=== PATIENT | female | born 1945 | race Caucasian/White ===

== ENCOUNTER 2017-06-15 09:00 | Outpatient (RCR) | payer MEDICARE, BC, SELFPAY ==
--- NOTE | 2017-05-09 14:36 | HMH.PTOPEV ---
Rehab Outpatient Evaluation Rehab OP Evaluation Start: 05/09/17 14:01 Freq: Status: Active Protocol: Document 05/09/17 14:01 DENNYSSTEPHANIE (Rec: 05/09/17 14:36 JONATHAN [id number]) Electronically Signed By Carroll Mike PT 05/09/17 14:01 Outpatient Therapy Subjective History Subjective History This is the initial Physical Therapy evaluation for Charley Massey. Pt is a 72 y/o female referred to PT for c/o BLE pain and balance issues. Pt reports she began noticing pain in toes from toenails and shoes. Pt reports this altered her gait to suach an extent it began causing pain in claf muscles and eventually knees and hips. 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 Chief Complaint Pain Weakness Other Symptom Type Ache Throb Sharp Numbness Symptoms Relieved By Rest/Positioning Symptoms Aggravated By Physical Activity Walking Prior Functional Limitations None Current Functional Limitations Housework Standing Sitting Recreation Activity Walking Balance Symptom Description Intermittent Level of pain today (0-10) 0 Pain scale - at its best (0-10) 0 Pain scale - at its worst (0-10) 7 Balance Eval Chief Complaint vertigo No Did you feel dizzy, unsteady or faint? Yes: unsteady Prior Functional Limitations Prior Functional [place] Level Independent Current Functional Limitations Comment independent w/ increased time necessary for ADL's Hx of Falls Hx Falls Yes Number in last 6 months 3 Gait/Posture Asssessment General Gait Observation Wide Based Gait Shuffling Step Assistive Devices None / NA Level of Transfer Assist Standby Assistance Ankle/Foot Observation in Gait Swing Decreased Foot Clearance Body Alignment Posture Rigid LE ROM Ankle/Foot ROM Limitations Soft Tissue Tightness Muscle Weakness Pain
== END 2017-06-15 09:01 | disposition home or self-care (01) ==
LOC: PT 09:00
PROVIDERS: Family Provider Internal Medicine Adolescent Medicine; PCP Internal Medicine Adolescent Medicine; Visit Provider Internal Medicine Adolescent Medicine
DX: M19.90 Unspecified osteoarthritis, unspecified site (principal); M79.1 Myalgia
CPT/HCPCS: 97110; 97112

== ENCOUNTER → 2017-10-10 12:49 | Outpatient (CLI) | payer MEDICARE, BC, SELFPAY ==
--- NOTE | 2017-10-10 12:57 | US_ITS ---
US transvaginal HISTORY: ITS.REASON: PELVIC PAIN ORDERING PHYSICIAN: James Stack MD PATIENT AGE: 72 years Comparison: US transvaginal COMPARISON: Transvaginal ultrasound for 2016 HISTORY: Pelvic pain, 20 years postmenopausal TECHNIQUE: Endovaginal ultrasound scanning FINDINGS: The uterus is normal in size and shows normal echogenicity. Again noted is a small area of slightly decreased activity spherical in shape fundus of the uterus measuring 1.3 x 1.2 cm likely a small fibroid. The endometrial echo appears normal there is a nabothian cyst in the cervix measuring 0.7 cm. Both ovaries are imaged both appearing normal in size and echogenicity. There is no cul-de-sac fluid. IMPRESSION: Grossly normal-appearing uterus with stable small fibroid in the uterine fundus, normal ovaries bilaterally
== END ==
PROVIDERS: Family Provider Internal Medicine Adolescent Medicine; PCP Internal Medicine Adolescent Medicine; Visit Provider Internal Medicine Adolescent Medicine
DX: R10.2 Pelvic and perineal pain (principal)
CPT/HCPCS: 76830

== ENCOUNTER → 2018-01-22 15:20 | Outpatient (CLI) | payer MEDICARE, BC, SELFPAY ==
--- NOTE | 2018-01-22 15:41 | XR_ITS ---
XR chest 2V HISTORY: ITS.REASON: COUGH ORDERING PHYSICIAN: James Stack MD PATIENT AGE: 72 years COMPARISON: PA and lateral chest 06/10/2015 FINDINGS: The cardiomediastinal silhouette and pulmonary vascularity are within normal limits. The lungs are clear without infiltrates, suspicious nodules, or pleural effusions. There is minimal post inflammatory scarring at the left base. No acute bony abnormalities. IMPRESSION: Negative chest, no acute finding
--- NOTE | 2018-01-22 15:42 | XR_ITS ---
EXAM: XR cervical spine 5V HISTORY: Generalized neck pain ITS.REASON: CERVICALGIA ORDERING PHYSICIAN: James Stack MD PATIENT AGE: 72 years COMPARISON: None FINDINGS: Normal alignment. No fracture or dislocation. No lytic or blastic change. No significant degenerative change. The disc spaces are preserved except for minor disc space narrowing at C5-6 level. Oblique films show normal neural foramina bilaterally. The prevertebral soft tissues are normal and the odontoid is normal.. IMPRESSION: Very minor degenerative disc disease C5-6 otherwise normal study
== END ==
PROVIDERS: PCP Internal Medicine Adolescent Medicine; Visit Provider Internal Medicine Adolescent Medicine
DX: Z12.31 Encounter for screening mammogram for malignant neoplasm of breast (principal); R05 Cough; M54.2 Cervicalgia
CPT/HCPCS: 71046; 72050

== ENCOUNTER → 2018-02-12 16:43 | Outpatient (CLI) | payer MEDICARE, BC, SELFPAY ==
--- NOTE | 2018-02-12 16:45 | MM_ITS ---
MM Dig screening mamm BI w/CAD ORDERING PHYSICIAN : James Stack MD PATIENT AGE: 72 years GENDER: Female COMPARISON: INDICATION: ITS.REASON: SCREENING no hormones. No new complaints. Previous excisional benign biopsy right breast Family history. Maternal aunt with breast cancer TECHNIQUE: Standard CC and MLO images were obtained. R2 CAD reviewed. FINDINGS: Low-density breast with minimal residual fibroglandular elements and generalized fatty replacement. No new areas of concern. Scattered benign spherical calcifications. Likely reflecting small oil cyst s no new findings of significant concern in either breast. Bilateral follow-up in one year adequate. . Stable minimal residual fibroglandular elements pattern bilaterally. IMPRESSION: Stable bilateral mammogram... With no significant new findings. Bilateral follow-up in one year recommended. BI-RADS Category: 2 Benign Finding(s) RECOMMENDED FOLLOW-UP: 1YR 1 YEAR FOLLOW-UP (A letter has been sent to the patient regarding results of the study.)
== END ==
PROVIDERS: PCP Internal Medicine Adolescent Medicine; Visit Provider Internal Medicine Adolescent Medicine
DX: Z12.31 Encounter for screening mammogram for malignant neoplasm of breast (principal)
CPT/HCPCS: 77067

== ENCOUNTER → 2018-06-12 08:33 | Outpatient (CLI) | payer MEDICARE, BC, SELFPAY ==
[2018-06-12 09:25] LABS: Basophils % 0.6 % (0.1-2.0); Eosinophils # 0.5 K/mm3 (0.0-0.4); Eosinophils % 9.2 % (0.1-12.0); Hematocrit 48.4 % (37.0-47.0); Hemoglobin 15.4 g/dL (12.2-16.2); Lymphocytes # 1.5 K/mm3 (0.7-4.5); Mean Corpuscular HGB Conc 31.8 g/dL (31.8-35.4); Mean Corpuscular Hemoglobin 28.6 pg (27.0-31.2); Monocytes # 0.4 K/mm3 (0.1-1.0); Neutrophils # 3.2 K/mm3 (1.8-7.8); Neutrophils % 57.1 % (37.0-80.0); Platelet Count 292 K/mm3 (142-424); Red Blood Count 5.38 M/mm3 (4.20-5.40); White Blood Count 5.7 K/mm3 (4.8-10.8)
[2018-06-12 09:34] LABS: Hemoglobin A1C 6.6 % (0.0-7.0)
[2018-06-12 10:24] LABS: Alanine Aminotransferase 26 U/L (12-78); Albumin Level 3.4 gm/dL (3.4-5.0); Alkaline Phosphatase 139 U/L (46-116); Anion Gap 9.7 mEq/L (5-15); Aspartate Amino Transferase 19 U/L (15-37); Bilirubin,Total 0.7 mg/dL (0.2-1.0); Blood Urea Nitrogen 15 mg/dL (7-18); Calcium 9.5 mg/dL (8.5-10.1); Carbon Dioxide 32 mmol/L (21.0-32.0); Chloride 107 mmol/L (98-107); Chol/HDL Ratio 2.6 (1-3.5); Cholesterol 170 mg/dL (140-200); Creatinine,Serum 0.75 mg/dL (0.55-1.02); Estimated Glomerular Filt Rate 76 ml/min (>60); GFR (African American) 92 ML/MIN (>60); Globulin 3.5 gm/dl (1.3-3.2); Glucose 166 mg/dL (74-106); HDL Cholesterol 65 mg/dL (29-89); LDL Cholesterol 93 mg/dL (0-130); Potassium 4.7 mmoL/L (3.5-5.1); Sodium 144 mmol/L (136-145); Thyroid Stimulating Hormone 3.25 uIU/ml (0.358-3.740); Total Protein,Serum 6.9 gm/dL (6.4-8.2); Triglycerides 59 mg/dL (30-200); VLDL Cholesterol 12 mg/dL (0-40)
[2018-06-13 07:55] LABS: Vitamin D 25 Hydroxy 12.8 ng/mL (30.0-100.0)
[2018-06-13 08:46] LABS: Vitamin B12 206 pg/mL (232-1245)
== END ==
PROVIDERS: Visit Provider Internal Medicine Adolescent Medicine
DX: E11.9 Type 2 diabetes mellitus without complications (principal); Z79.84 Long term (current) use of oral hypoglycemic drugs
CPT/HCPCS: 36415; 80053; 80061; 82607; 82652; 83036; 84443; 85025

== ENCOUNTER → 2018-07-17 17:15 | Outpatient (CLI) | payer MEDICARE, BC, SELFPAY ==
--- NOTE | 2018-07-17 17:36 | XR_ITS ---
XR shoulder LT min 2V HISTORY: ITS.REASON: ACUTE PAIN OF LEFT SHOULDER ORDERING PHYSICIAN: Naman Sandoval MD PATIENT AGE: 73 years Comparison: None FINDINGS: No fracture or dislocation. No lytic or blastic change. There is normal mineralization. There are mild osteoarthritic changes with bony spurring at the acromioclavicular joint. Spurring is noted along both superior and inferior aspect of the acromium with subacromial stenosis which may lead to the rotator cuff pathology/symptoms. IMPRESSION: Acromioclavicular arthropathy with subacromial stenosis
--- NOTE | 2018-07-17 17:36 | XR_ITS ---
XR wrist LT min 3V HISTORY ITS.REASON: LEFT WRIST PAIN ORDERING PHYSICIAN: Naman Sandoval MD PATIENT AGE: 73 years Comparison: None FINDINGS: No fracture or dislocation. No lytic or blastic change. There is normal mineralization.. The joint spaces are well-preserved. No significant degenerative/arthritic changes. No erosive changes evident.. IMPRESSION: Negative wrist
== END ==
PROVIDERS: PCP Internal Medicine Adolescent Medicine; Visit Provider Internal Medicine Adolescent Medicine
DX: M25.532 Pain in left wrist (principal); M25.512 Pain in left shoulder
CPT/HCPCS: 73030; 73110

== ENCOUNTER → 2018-08-24 13:22 | Outpatient (CLI) | payer MEDICARE, BC, SELFPAY ==
--- NOTE | 2018-08-24 13:35 | XR_ITS ---
XR chest 2V HISTORY: ITS.REASON: COUGH,HOARSENESS ORDERING PHYSICIAN: James Stack MD PATIENT AGE: 73 years COMPARISON: 01/22/2018 FINDINGS: The cardiomediastinal silhouette and pulmonary vascularity are within normal limits. The lungs are clear without infiltrates, suspicious nodules, or pleural effusions. No acute bony abnormalities. IMPRESSION: Negative chest, no acute finding
--- NOTE | 2018-08-24 13:35 | XR_ITS ---
XR soft tissue neck CLINICAL INDICATION: ITS.REASON: COUGH,HOARSENESS ORDERING PHYSICIAN: James Stack MD PATIENT AGE: 73 years Comparison: None FINDINGS: The epiglottis has an unremarkable appearance. No prevertebral mass or air-fluid level. There is some increased soft tissue density at the glottic region with narrowing of the upper trachea suggesting croup. IMPRESSION: The findings are compatible with croup
== END ==
PROVIDERS: PCP Internal Medicine Adolescent Medicine; Visit Provider Internal Medicine Adolescent Medicine
DX: R05 Cough (principal); R49.0 Dysphonia
CPT/HCPCS: 70360; 71046

== ENCOUNTER → 2018-08-31 12:03 | Outpatient (CLI) | payer MEDICARE, BC, SELFPAY ==
[2018-08-31 14:55] LABS: Hemoglobin A1C 6.4 % (0.0-7.0)
== END ==
PROVIDERS: Visit Provider Internal Medicine Adolescent Medicine
DX: E11.9 Type 2 diabetes mellitus without complications (principal); Z79.4 Long term (current) use of insulin
CPT/HCPCS: 36415; 83036

== ENCOUNTER → 2018-09-01 10:18 | Outpatient (CLI) | payer MEDICARE, BC, SELFPAY | PROVIDERS: Visit Provider Internal Medicine Adolescent Medicine | DX: R05 Cough (principal) | CPT/HCPCS: 87070; 87205 ==

== ENCOUNTER → 2018-10-08 09:50 | Outpatient (CLI) | payer MEDICARE, BC, SELFPAY ==
--- NOTE | 2018-10-08 09:53 | XR_ITS ---
DEXA SCAN.-BONE DENSITY STUDY HIPS AND LUMBAR SPINE Height loss HISTORY: Postmenopausal female 73-year-old female takes vitamin D. Loss of height butNo history of fractures. TECHNIQUE: DEXA scan hip and lumbar spine The most complete data summary and color graphic presentation of the today's ( and any prior ) DEXA findings are available in PACS. Definition and treatment guidelines included. COMPARISON: None listed LUMBAR SPINE:. L2 vertebral body demonstrates the lowest T score -0.7 with BMD1.116 g/cm sq Overall mean lumbar L1-L4 T score 0.2 with BMD1.207 g/cm sq . HIPS: Femoral neck density is best predictor of hip fracture risk . Both right and left femoral neck demonstrate T score of -1.1 indicating mild osteopenia. Right BMD 0.885; Left femoral neck BMD 0.889. G/cm sq . This mild osteopenia at both femoral necks reflects Minimal increased risk for fracture (2-3 times risk) all region included with today's Hip Mean T score is - -0.1 with BMD 0.998 g/cm sq .. IMPRESSION 1. LUMBAR SPINE: .Normal bone density lumbar spine-with overall lumbar T score = 0.2 . Normal bone density each sampled vertebral body 2. HIPS: Overall hip T score = -0.1 reflects overall normal bone density Lower density at femoral necks indicating mild osteopenia T score -1.1. Minimal increased risk for fracture. WHO criteria for post-menopausal, Women: Normal: T-score at or above -1 SD Osteopenia: T-score between -1 and -2.5 SD Osteoporosis: T-score at or below -2.5 SD
--- NOTE | 2018-10-08 09:54 | FL_ITS ---
FL barium swallow modified: 10/08/2018 9:54 AM CLINICAL HISTORY: Globus sensation, chronic cough, dysphasia ORDERING PHYSICIAN: James Stack MD PATIENT AGE: 73 years Comparison: None TECHNIQUE: Patient administered varying consistencies of barium contrast, while viewed in lateral position under real-time fluoroscopy with cine recording. FLUOROSCOPY TIME: 2 minutes and 42 seconds The study was performed in conjunction with speech pathologist. Please see that report & recommendations. FINDINGS: Patient was given varying consistencies of barium. No aspiration or penetration evident. IMPRESSION: Unremarkable modified barium swallow Please see speech pathologist report and recommendations.
--- NOTE | 2018-10-08 13:40 | HMH.SLMBS2 ---
Speech & Language Evaluation Speech/Language Mod Barium Swallow Start: 10/08/18 13:26 Freq: once Status: Complete Protocol: Document 10/08/18 13:26 MORENO (Rec: 10/08/18 13:40 MORENO [id number]) [facility] Recommendations Diet Dietary Recommendations Regular,Thin Liquids Referrals/Other Recommended Referrals ENT Consult Other Recommendations Patient advised to follow up with PCP and ENT to assess persistent feeling of food stuck in throat and cough. Mucas was observed during study possibly triggering cough, but no food was observed getting stuck in structures of her anatomy. Mod Barium Swallow Impressions Summary and Impressions Oral Phase Impression No Impairment (WFL) Oral Phase Summary No impairment in oral phase was observed with any consistency presented. Pharyngeal Phase Impression No Impairment (WFL) Pharyngeal Phase Summary No pharyngeal phase impairment was observed. Mucas was observed that did not move when patient coughed. Patient consistently coughed a barky cough following presentation of all consistencies. Speech/Language MBS Assessment/Goals/Plan Assessment Date of Evaluation: 10/08/18 Evaluation Type Initial Certification Assessment/Problems Patient presents with a persistent cough and feeling of food stuck in throat'. Does Patient Qualify for Service No Qualify/Failure Comment Patient presents with functional swallow and structure and function appear to be within functional limits . Therapy is not indicated at this time. Recommendations PHYSICIAN CERTIFICATION: The specified therapy services are required, authorized, and reviewed every 30 days. Diet Recommendations Normal Liquid Type Recommendations Normal/Thin SL Swallow Guidelines Standard Aspiration Prec. Plan Pt/Guardian verbally ack understanding Yes of dx/prognosis/goals Pt/Guardian verbally ack understanding Yes of/consent to tx prog G -code Required Yes G-CODES ST Current Status [id number] ST Current Status Modifier CI-At least 1% but less than 20% impaired, limited or
== END ==
PROVIDERS: PCP Internal Medicine Adolescent Medicine; Visit Provider Internal Medicine Adolescent Medicine
DX: Z78.0 Asymptomatic menopausal state (principal); Z13.820 Encounter for screening for osteoporosis; R05 Cough; R09.89 Other specified symptoms and signs involving the circulatory and respiratory systems
CPT/HCPCS: 70371; 77080; 92611

== ENCOUNTER → 2018-11-30 10:54 | Outpatient (CLI) | payer MEDICARE, BC, SELFPAY ==
[2018-11-30 11:59] LABS: Basophils % 0.5 % (0.1-2.0); Eosinophils # 0.2 K/mm3 (0.0-0.4); Eosinophils % 2.5 % (0.1-12.0); Hematocrit 44.1 % (37.0-47.0); Hemoglobin 13.9 g/dL (12.2-16.2); Lymphocytes # 1.9 K/mm3 (0.7-4.5); Lymphocytes % 25.2 % (10-50); Mean Corpuscular HGB Conc 31.6 g/dL (31.8-35.4); Mean Corpuscular Hemoglobin 28.6 pg (27.0-31.2); Mean Corpuscular Volume 90.8 fl (81-99); Mean Platelet Volume 7.8 fl (7.4-10.4); Monocytes # 0.5 K/mm3 (0.1-1.0); Monocytes % 7.2 % (1.7-9.3); Neutrophils # 4.8 K/mm3 (1.8-7.8); Neutrophils % 64.7 % (37.0-80.0); Platelet Count 329 K/mm3 (142-424); Red Blood Count 4.86 M/mm3 (4.20-5.40); Red Cell Distribution Width 12.7 % (11.5-17.5); White Blood Count 7.5 K/mm3 (4.8-10.8)
[2018-11-30 13:39] LABS: Alanine Aminotransferase 20 U/L (12-78); Albumin Level 3.4 gm/dL (3.4-5.0); Alkaline Phosphatase 127 U/L (46-116); Anion Gap 8.1 mEq/L (5-15); Aspartate Amino Transferase 14 U/L (15-37); Bilirubin,Total 0.4 mg/dL (0.2-1.0); Blood Urea Nitrogen 14 mg/dL (7-18); Calcium 9.2 mg/dL (8.5-10.1); Carbon Dioxide 33 mmol/L (21.0-32.0); Chloride 107 mmol/L (98-107); Chol/HDL Ratio 2.3 (1-3.5); Cholesterol 155 mg/dL (140-200); Creatinine,Serum 0.75 mg/dL (0.55-1.02); Estimated Glomerular Filt Rate 76 ml/min (>60); GFR (African American) 92 ML/MIN (>60); Globulin 3.4 gm/dl (1.3-3.2); Glucose 117 mg/dL (74-106); HDL Cholesterol 67 mg/dL (29-89); LDL Cholesterol 78 mg/dL (0-130); Potassium 4.1 mmoL/L (3.5-5.1); Sodium 144 mmol/L (136-145); Total Protein,Serum 6.8 gm/dL (6.4-8.2); Triglycerides 52 mg/dL (30-200); VLDL Cholesterol 10 mg/dL (0-40)
[2018-12-01 11:35] LABS: Hemoglobin A1C 6.9 % (0.0-7.0)
== END ==
PROVIDERS: Visit Provider Internal Medicine Adolescent Medicine
DX: E78.5 Hyperlipidemia, unspecified (principal); E11.9 Type 2 diabetes mellitus without complications; Z79.84 Long term (current) use of oral hypoglycemic drugs; M17.11 Unilateral primary osteoarthritis, right knee
CPT/HCPCS: 36415; 80053; 80061; 83036; 85025

== ENCOUNTER → 2018-12-04 12:44 | Outpatient (CLI) | payer MEDICARE, BC, SELFPAY ==
--- NOTE | 2018-12-04 12:48 | CA_ITS ---
APPROVED REPORT EXAM: Comprehensive 2D, Doppler, and color-flow Echocardiogram Medical Coding Specialist: Radha Zaldivar CRT Ht: 5 ft 10 in Wt: 270lbs BSA: 2.37 BP: 124/56 mmHg Indications: COPD, Shortness of Breath, Diabetes, Hypertension/HDD, GERD, Mineer's disease 2D Dimensions IVSd 2.00 cm LVEF (Visual) 61.40 % PWd 0.90 cm LVDd 4.00 cm LVDs 2.70 cm LVOT 1.90 cm (M/F) 1.5-2.5 M-Mode Dimensions LA Diam 4.00 cm (1.9-4.0) Ao Diam 2.90 cm (2.0-3.7) AV Cusp 1.80 cm (1.5-2.6) LV Diastology E/A Ratio 0.60 MED E' 5.65 (< 7 cm/sec) E'/MED E' Ratio 11.80 (>14) LAT E' 4.48 (<10 cm/sec) E/LAT E' Ratio 14.90 (>14) Aortic Valve AoV Peak Lorenzo. 162.00 (50-130 cm/s) AO Peak GR. 10.00 mmHg Mitral Valve MV E Max Lorenzo. 66.60 (40-130 cm/s) MV A Velocity 107.00 (40-130 cm/s) E/A Ratio 0.60 Pulmonary Valve VT End VMAX 102.00 cm/s PA Accel Time 137.00 (>120 msec) Tricuspid Valve TR P. Velocity 238.00 cm/s RAP Estimate 10.00 mmHg RVSP 33.00 mmHg Left Ventricle Left atrium is mildly enlarged, left ventricle is normal size, mild concentric left ventricular hypertrophy, visually estimated ejection fraction of 55% with no regional wall motion abnormality. Grade 1 diastolic dysfunction seen without tissue Doppler evidence of raise left atrial pressure. Right Ventricle Right atrium and right ventricle is mildly enlarged with normal contractility. Aortic Valve Aortic valve is minimally thickened and calcified, there is no aortic stenosis aortic insufficiency. Mitral Valve Mitral valve is grossly normal, there is mild mitral regurgitation. Tricuspid Valve Tricuspid valve is grossly normal, there is mild tricuspid regurgitation, calculated right ventricular systolic pressure is 37 mmHg consistent with mildly elevated right ventricular systolic pressure. Pulmonic Valve Pulmonic valve is poorly visualized. Great Vessels Aortic root is normal size. Pericardium No significant pericardial effusion noted. Conclusion 1. Biatrial enlargement, normal left ventricular size, preserved left ventricular systolic function, visually estimated ejection fraction 55% with no regional wall motion abnormality, grade 1 diastolic dysfunction seen without tissue Doppler evidence of raise left atrial pressure. 2. Mildly enlarged right ventricle with normal contractility. 3. Mild mitral and tricuspid regurgitation, calculated right ventricular systolic pressure is 37 mmHg consistent with mildly elevated right ventricular systolic pressure. 4. No significant pericardial effusion noted. Electronically signed by : Juice Modi, 12/07/2018 10:47:50
== END ==
PROVIDERS: PCP Internal Medicine Adolescent Medicine; Visit Provider Internal Medicine Adolescent Medicine
DX: R60.9 Edema, unspecified (principal); R06.09 Other forms of dyspnea
CPT/HCPCS: 93306

== ENCOUNTER 2018-12-20 08:30 | Outpatient (RCR) | payer MEDICARE, BC, SELFPAY ==
--- NOTE | 2018-11-07 10:45 | HMH.PTOPEV ---
PT Outpatient Evaluation Rehab PT Outpatient Evaluation Start: 11/07/18 09:21 Freq: Status: Active Protocol: Document 11/07/18 09:21 JONATHAN (Rec: 11/07/18 10:45 JONATHAN [id number]) Electronically Signed By Carroll Mike, PT 11/07/18 09:21 Outpatient Therapy Subjective History Subjective History 73 year old female pt. reports with bilateral knee pain and low back pain. Pt. states she has trouble with sitting and walking. Pt. 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 Pt. is unsure how long symptoms have been occuring but says it has at least been a few years. Chief Complaint Pain,Gives out/Unstable, Weakness Symptom Type Throb,Sharp Symptoms Relieved By Rest/Positioning Symptoms Aggravated By Prone,Supine,Sitting,Standing, Bending/Stooping,Physical Activity,Twisting,Walking, Lifting Prior Functional Limitations None Current Functional Limitations Reaching,Lifting,Housework, Standing,Sitting,Squatting, Recreation Activity,Walking, Stairs,Balance,Bending/ Stooping Symptom Description Constant but Variable Level of pain today (0-10) 5 Pain scale - at its best (0-10) 3 Pain scale - at its worst (0-10) 5 Lumbopelvic Eval Range of Motion Lumbar Spine Active Flexion Range of 60 Motion (degrees) Lumbar Spine Active Extension Range of 10 Motion (degrees) Lumbar Spine ROM Limitations Pain Manual Muscle Test Left Knee Extension Strength Grade 3+ Fair+ Knee Flexion Strength Grade 3+ Fair+ Hip Flexion Strength Grade 3 Fair Hip Abduction Strength Grade 4 Good Hip External Rotation Strength Grade 3 Fair Hip Internal Rotation Strength Grade 3 Fair Hip Extension Strength Grade 4- Good- Right Knee Extension Strength Grade 4- Good- Knee Flexion Strength Grade 4 Good Hip Flexion Strength Grade 3 Fair Hip Abduction Strength Grade 4 Good Hip External Rotation Strength Grade 3+ Fair+ Hip Internal Rotation Strength Grade 3+ Fair+ Hip Extension Strength Grade 4- Good- DTR Rt Patellar 0 Lt Patellar 0 Special Tests Forward Bending Test- Sitting Positive Left,Positive Right Hip/Knee Eval P
== END 2018-12-20 08:35 | disposition home or self-care (01) ==
LOC: PT 08:30
PROVIDERS: PCP Internal Medicine Adolescent Medicine; Visit Provider Nurse Practitioner Family
DX: M25.561 Pain in right knee (principal); M25.562 Pain in left knee; M54.41 Lumbago with sciatica, right side
CPT/HCPCS: 97110; 97163

== ENCOUNTER → 2019-04-03 11:53 | Outpatient (CLI) | payer MEDICARE, BC, SELFPAY ==
[2019-04-03 12:17] LABS: Basophils # 0.1 K/mm3 (0-0.2); Basophils % 0.7 % (0.1-2.0); Eosinophils # 0.3 K/mm3 (0.0-0.4); Eosinophils % 4.1 % (0.1-12.0); Hematocrit 41.7 % (37.0-47.0); Hemoglobin 13.2 g/dL (12.2-16.2); Lymphocytes # 1.9 K/mm3 (0.7-4.5); Lymphocytes % 28.1 % (10-50); Mean Corpuscular HGB Conc 31.7 g/dL (31.8-35.4); Mean Corpuscular Hemoglobin 27.7 pg (27.0-31.2); Mean Corpuscular Volume 87.3 fl (81-99); Mean Platelet Volume 8.5 fl (7.4-10.4); Monocytes # 0.4 K/mm3 (0.1-1.0); Monocytes % 6.3 % (1.7-9.3); Neutrophils # 4.1 K/mm3 (1.8-7.8); Neutrophils % 60.8 % (37.0-80.0); Platelet Count 291 K/mm3 (142-424); Red Blood Count 4.78 M/mm3 (4.20-5.40); Red Cell Distribution Width 13.5 % (11.5-17.5); White Blood Count 6.8 K/mm3 (4.8-10.8)
[2019-04-03 15:34] LABS: Alanine Aminotransferase 25 U/L (12-78); Albumin Level 3.3 gm/dL (3.4-5.0); Albumin/Globulin Ratio 1.1 (1.1-1.8); Alkaline Phosphatase 122 U/L (46-116); Anion Gap 10.1 mEq/L (5-15); Aspartate Amino Transferase 14 U/L (15-37); Bilirubin,Total 0.7 mg/dL (0.2-1.0); Blood Urea Nitrogen 13 mg/dL (7-18); Calcium 8.7 mg/dL (8.5-10.1); Carbon Dioxide 31 mmol/L (21.0-32.0); Chloride 108 mmol/L (98-107); Chol/HDL Ratio 2.7 (1-3.5); Cholesterol 167 mg/dL (140-200); Creatinine,Serum 0.61 mg/dL (0.55-1.02); Estimated Glomerular Filt Rate 96 ml/min (>60); GFR (African American) 116 ML/MIN (>60); Globulin 3.1 gm/dl (1.3-3.2); Glucose 124 mg/dL (74-106); HDL Cholesterol 63 mg/dL (29-89); LDL Cholesterol 89 mg/dL (0-130); Potassium 4.1 mmoL/L (3.5-5.1); Sodium 145 mmol/L (136-145); Total Protein,Serum 6.4 gm/dL (6.4-8.2); Triglycerides 76 mg/dL (30-200); VLDL Cholesterol 15 mg/dL (0-40)
[2019-04-03 17:19] LABS: Hemoglobin A1C 6.4 % (0.0-7.0)
== END ==
PROVIDERS: Visit Provider Internal Medicine Adolescent Medicine
DX: E11.9 Type 2 diabetes mellitus without complications (principal); R60.9 Edema, unspecified
CPT/HCPCS: 36415; 80053; 80061; 83036; 85025

== ENCOUNTER → 2019-04-08 12:33 | Outpatient (CLI) | payer MEDICARE, BC, SELFPAY ==
--- NOTE | 2019-04-08 12:39 | XR_ITS ---
PROCEDURE: XR CHEST 2V CLINICAL HISTORY: COUGH COMPARISON: CXR CHEST(2 VIEWS-NOT PORTABLE) from 06/10/2015 CXR1 CHEST-PORTABLE from 09/24/2015 CXR CHEST(2 VIEWS-NOT PORTABLE) from 10/20/2016 CXR2V XR chest 2V from 01/22/2018 FINDINGS: The cardiomediastinal silhouette and pulmonary vascularity are within normal limits. The lungs are clear without infiltrates, suspicious nodules, or pleural effusions. No acute bony abnormalities. IMPRESSION: No acute findings. Dictated by: Jonathan Jo MD 04/08/2019 13:33 Electronically signed by Jonathan Jo MD in [place] 04/08/2019 13:33
== END ==
PROVIDERS: PCP Internal Medicine Adolescent Medicine; Visit Provider Nurse Practitioner
DX: R05 Cough (principal)
CPT/HCPCS: 71046

== ENCOUNTER → 2019-08-28 14:35 | Outpatient (CLI) | payer MEDICARE, BC, SELFPAY ==
[2019-08-28 16:35] VITALS: BMI 38.2
== END ==
PROVIDERS: PCP Internal Medicine Adolescent Medicine; Visit Provider Internal Medicine Adolescent Medicine
DX: Z71.3 Dietary counseling and surveillance (principal); E11.9 Type 2 diabetes mellitus without complications
CPT/HCPCS: 97802

== ENCOUNTER → 2019-09-18 08:32 | Outpatient (CLI) | payer MEDICARE, BC, SELFPAY ==
--- NOTE | 2019-09-18 08:35 | MM_ITS ---
PROCEDURE: MM DIG SCREENING MAMM BI W/CAD DIGITAL BREAST TOMOSYNTHESIS INCLUDED Patient Age:74Y CLINICAL INDICATION: SCREENING 74-year-old postmenopausal female no hormones Previous surgical excisional biopsy right breast-benign findings. Family history. Paternal aunt breast cancer COMPARISON: [facility] DIGITAL MAMM-SCREEN BILATERAL from 12/03/2010 [facility] DIGITAL MAMM-SCREEN BILATERAL from 04/24/2012 [facility] DIG MAMM-SCREEN ALEKSANDRA from 06/27/2013 [facility] DIG MAMM-SCREEN ALEKSANDRA from 09/09/2014 [facility] DIG MAMM-SCREEN ALEKSANDRA from 12/08/2015 [facility] DIG MAMM-SCREEN ALEKSANDRA W/CAD from 01/20/2017 [facility] MM Dig screening mamm BI w/CAD from 02/12/2018 TECHNIQUE: Very difficult to position patient but had difficulty hearing as well. Standard CC and MLO images were obtained. R2 CAD reviewed. Bilateral digital breast tomosynthesis included. Additional nipple profile CC views both breast, With additional nipple profile right MLO view . FINDINGS: Of minimal residual fibroglandular elements most evident at the retroareolar region. No significant change since prior studies. No dominant or suspicious new mass. No suspicious new calcifications. Scattered benign spherical calcifications bilateral new Suggestion very minor longstanding stable architectural changes superior right breast likely reflect previous biopsy Bilateral follow-up in 1 year adequate. And recommended IMPRESSION: Stable mammogram with no new areas of concern Bilateral follow-up 1 year recommended BI-RAD Category: 2 Benign Finding(s) FOLLOW-UP: 1YR 1 Year Follow-up (A letter has been sent to the patient regarding results of the study.) Dictated by: Dillon Bryant MD 09/18/2019 10:08 Electronically signed by Dillon Bryant MD in [place] 09/18/2019 10:08
== END ==
PROVIDERS: PCP Internal Medicine Adolescent Medicine; Visit Provider Internal Medicine Adolescent Medicine
DX: Z12.31 Encounter for screening mammogram for malignant neoplasm of breast (principal)
CPT/HCPCS: 77063; 77067

== ENCOUNTER → 2019-10-23 11:15 | Outpatient (CLI) | payer MEDICARE, BC, SELFPAY ==
--- NOTE | 2019-10-23 11:20 | XR_ITS ---
PROCEDURE: XR CHEST 2V CLINICAL HISTORY: COUGH,SOB Nonsmoker. Rattling in lungs. COMPARISON: WO CT CHEST W/O CONTRAST from 11/01/2016 CXR2V XR chest 2V from 01/22/2018 XR CHEST 2V from 04/08/2019 XR CHEST PORTABLE from 05/27/2019 FINDINGS: No acute bony abnormalities. There is bony demineralization. The cardiomediastinal silhouette and pulmonary vascularity are within normal limits. The lungs are somewhat hyperinflated probably with COPD. The lungs are seen without infiltrates, suspicious nodules, or pleural effusions. Mildly increased thoracic kyphosis. IMPRESSION: 1. No acute findings. Probably COPD. Dictated by: Gallo Vu 10/23/2019 12:07 Electronically signed by Gallo Vu in [place] 10/23/2019 12:07
== END ==
PROVIDERS: PCP Internal Medicine Adolescent Medicine; Visit Provider Nurse Practitioner
DX: R05 Cough (principal); R06.02 Shortness of breath
CPT/HCPCS: 71046

== ENCOUNTER → 2019-11-09 09:03 | Outpatient (CLI) | payer MEDICARE, BC, SELFPAY ==
[2019-11-09 10:53] LABS: Coronavirus 19 IgG Antibody Negative (Negative); Coronavirus 19 IgM Antibody Negative (Negative)
== END ==
PROVIDERS: Visit Provider Internal Medicine Gastroenterology
DX: Z01.818 Encounter for other preprocedural examination (principal); Z12.11 Encounter for screening for malignant neoplasm of colon
CPT/HCPCS: 36415; 86328

== ENCOUNTER 2019-11-11 10:37 | Day surgery (SDC) | payer MEDICARE, BC, SELFPAY ==
[2019-11-11] VITALS (10 sets, daily range): BP systolic 117–177; BP diastolic 63–88; PULSE 61–79; RESP 10–18; TEMP 36.4–36.7; O2SAT 96–100; BMI 36.9
[2019-11-11 11:41] LABS: POC Glucose,Bedside 96 (70-110)
--- NOTE | 2019-11-11 12:22 | P.PN_ITS ---
[facility] Anesthesia Checklist - Patient Identification Patient Identification: Arm Band, Verbal (Name & ) - Structural Data Admitted From: Home Planned Operative Procedure/s: Colonoscopy Consent for Planned Operative Procedure(s) Verified: Yes Verified Documents: Surgical Consent, History and Physical - NPO Status Verified Time NPO: 00:00 - Additional verifications Fingerstick Blood Glucose: 96 Anesthesia Reactions: No - Airway Assessment C-Spine Mobility Assessed: Yes TMJ Mobility Assessed: Yes Dentition: Good Dentition - Neurological Assessment Level of Consciousness: Awake, Alert, Appropriate, Follows Commands Hx Seizures: No Numbness or tingling in extremities: No - Anesthesia Plan Anesthesia Risk discussed: Yes Anesthesia Plan: Verified ASA Class: III Anesthesia Type: MAC [facility] History I have reviewed the patient's past medical history: Yes Medical History: Reports:: Asthma, Chronic Obstructive Pulmonary Disease (COPD), Diabetes Mellitus Type 2, Gastroesophageal Reflux Disease(GERD), Hyperlipidemia, Hypertension, Kidney Stones Denies:: Cancer, Cerebrovascular Accident, Diabetes Mellitus Type 1, Internal Pacemaker, MRSA, Myocardial Infarction, Renal Disease, Renal Insufficiency, Seizures *Have you ever received a pneumonia vaccine?: Yes *Have you received a flu vaccine this season?: Yes Other Medical History: Reports: Arthritis, Fibromyalgia Comment:: GABRIELLE uses CPAP, Menieres disease, vertigo, DM, GERD, Obesity, fibromyalgia Anesthesia experience/problems:: No prior complications Laterality Cases: Right: Lumpectomy, Bilateral: Tonsillectomy Other Surgeries: Yes: Appendectomy, Colonoscopy, Dilation and Curettage, Other. No: Pacemaker Amputation: No Fractures: No - *Social History Smoking Status: Former smoker Tobacco Type: cigarettes Alcohol Intake: never Substance Use Type: denies use *Occupational Status:: retired Housing: house *Travel in the last 8 weeks: None Family Hx:: Cancer, Coronary Artery Disease, Heart Attack [employer] history: No [employer] history
--- NOTE | 2019-11-11 12:55 | HMH.PROC ---
[facility] Procedure Note Procedure Note:: Colonoscopy Procedure Report: Colonoscopy with cold snare polypectomy Endoscopist: Wagner Marcelino II, MD Referring physician: James Stack M.D. Date of Procedure: November 11, 2019 Equipment: Olympus 180 variable stiffness pediatric colonoscope Sedation: MAC sedation Indication: Mrs. Massey is a 74-year-old female who is here for follow-up screening/surveillance colonoscopy. The patient does have a personal history of colon polyps. She has had 2 prior colonoscopies and her last was 5 years ago at which time polyps were removed. The patient also has a history of irritable bowel syndrome. She does have alternating diarrhea with constipation. She has gassiness and bloating. She does report some lower abdominal discomfort associated with her IBS. She reports no rectal bleeding or weight loss. She may see some occasional spotting of blood from internal hemorrhoids. She believes that her mother had colon cancer at age 74. Procedure: Prior to the procedure, a history and physical exam was performed, and patient's medications and allergies were reviewed. The risks, benefits and alternatives of the sedation and procedure were discussed with the patient. All questions were answered and informed consent was obtained. The patient was brought to the procedure room. Patient identification and proposed procedure were verified by the physician and the nurse. The patient was placed in a left lateral decubitus position and the scope was passed under direct vision. Throughout the procedure, the patient's blood pressure, pulse, and oxygen saturations were monitored continuously. The colonoscopy was accomplished without difficulty. The patient tolerated the procedure well. Findings: On digital rectal examination there was normal rectal tone. There were no external hemorrhoids. The colonoscope was introduced through the anal canal to the rectum and advanced to the cecum. The ileocecal valve and appendiceal orifice were identified. The scope was advanced a short distance into the ileum which appeared grossly normal. The scope was then withdrawn into the colon. There were 4 colon polyps (cecal x2 (4 and 5 mm), descending x1 (5 mm) and sigmoid x1 (4 mm)) which were all removed via cold snare polypectomy. There were scattered diverticuli throughout the descending and sigmoid colon (LEFT colon). The rectum itself was normal. Upon retroflexion within the rectum there were grade 2 internal hemorrhoids. The preparation was excellent throughout with [place] Preparation Score of 9. The cecal time was 14 minutes. Impression: 1. Diminutive colonic polyps x4 2. Left-sided diverticulosis 3. Grade 2 internal hemorrhoids Plan: I will follow up the polyp pathology and recommend repeat colonoscopy again in 5 years based upon the polyp histology. I would encourage dietary measures, probiotic and bulk fiber supplementation (FiberCon 2 tablets p.o. every morning) on a long-term daily maintenance basis.
--- NOTE | 2019-11-11 13:28 | ECG_ITS ---
APPROVED REPORT Exam: Resting ECG HR:73 bpm ECG Measurements Heart Rate 73 AXES HI 158 P 30 QRSd 74 QRS -21 QT 414 T 31 QTc 456 <Conclusion> Normal sinus rhythm Low voltage QRS Cannot rule out Anterior infarct, age undetermined Abnormal ECG Electronically signed by : James Stack, 11/13/2019 17:33:04
--- NOTE | 2019-11-11 13:57 | PC.NURSE ---
Respiratory therapist Kya at bedside, tomás tx administered to pt
--- NOTE | 2019-11-11 13:58 | PC.NURSE ---
Pt having periods of apnea, pt sternal rubbed to no response. Colten Livingston CRNA at bedside
--- NOTE | 2019-11-11 14:00 | PC.NURSE ---
12 lead EKG completed, results to Colten Livingston CRNA
== END 2019-11-11 14:15 | disposition home or self-care (01) ==
LOC: OUTP 10:38
PROVIDERS: PCP Internal Medicine Adolescent Medicine; Visit Provider Internal Medicine Gastroenterology
PROC: 0DJD8ZZ Inspection of Lower Intestinal Tract, Via Natural or Artificial Opening Endoscopic (ICD-10-PCS; CPT 45378; principal; 2019-11-11 12:00)
DX: Z12.11 Encounter for screening for malignant neoplasm of colon (principal); Z86.010 Personal history of colon polyps; K63.5 Polyp of colon; K57.30 Diverticulosis of large intestine without perforation or abscess without bleeding; K64.1 Second degree hemorrhoids; E11.9 Type 2 diabetes mellitus without complications; J44.9 Chronic obstructive pulmonary disease, unspecified; K21.9 Gastro-esophageal reflux disease without esophagitis; E78.5 Hyperlipidemia, unspecified; I10 Essential (primary) hypertension; Z87.442 Personal history of urinary calculi; M19.90 Unspecified osteoarthritis, unspecified site
CPT/HCPCS: 45385; 82962; 88305; 93005; J2704

== ENCOUNTER 2019-12-25 18:48 | Emergency (ER) | payer MEDICARE, BC, SELFPAY ==
[2019-12-25 18:49] VITALS: BP 167/110; PULSE 90; RESP 16; TEMP 36.6; O2SAT 99; BMI 36.5
--- NOTE | 2019-12-25 19:05 | HMH.EDGENADL ---
ED Disposition Condition on Discharge: Fair - Critical Care Critical Care Time: No <Demetris Brooks - Last Filed: 12/25/19 19:52> <Jones Gonzalez - Last Filed: 12/25/19 21:50> Clinical Impression: Vertigo Nausea & vomiting Qualifiers: Vomiting type: unspecified Vomiting Intractability: unspecified Qualified Code(s): R11.2 - Nausea with vomiting, unspecified Abdominal pain Qualifiers: Abdominal location: unspecified location Qualified Code(s): R10.9 - Unspecified abdominal pain Disposition: Home, Self-Care Instructions: DI for Nausea -- Adult Additional Instructions: call pcp in am Referrals: James Stack MD [Primary Care Provider] - Attestation: On 12/25/19, the high probability of a clinically significant, sudden or life threatening deterioration of the following system(s) required my full and direct attention, intervention and personal management. The time I documented below is in addition to time spent performing reported procedures but includes the following listed in this critical care notation. Medical Decision Making - Medical Records Medical records reviewed: Yes: I reviewed the patient's medical records. MR Comment: 74-year-old female presents emergency department with dizziness, nausea, vomiting, nonspecific abdominal pain. She is not febrile and does not appear toxic. She arrives the ED hemodynamically stable, with reassuring vital signs, but is nauseous during exam. She is entirely neurologically intact at this time. Given her symptoms, will get an EKG, troponin, labs, CT of the abdomen, treat nausea and vertigo and reassess. - Nayan Inquiry Pt receiving controlled substance: No - Lab Data Result diagrams: 12/25/19 19:15 12/25/19 19:15 <Demetris Brooks - Last Filed: 12/25/19 19:52> - Lab Data Lab results reviewed: Yes: I reviewed the patient's lab results. Result diagrams: 12/25/19 19:15 12/25/19 19:15 - CT Data CT Scan: Head, Abdomen, Pelvis Time Received: 21:[address] Reviewed: Yes: I have viewed the radiologist's interpretation Preliminary Findings: Normal/NAD <Jones Gonzalez - Last Filed: 12/25/19 21:50> Vital Signs: 12/25/19 18:49 12/25/19 21:22 Temperature 97.9 F 97.9 F Temperature Source Oral Pulse Rate 98 H Pulse Rate [Left Radial] 90 Respiratory Rate 16 14 Blood Pressure 147/82 H Blood Pressure [Right Arm] 167/110 H Blood Pressure Mean [Right Arm] 129 Blood Pressure Source [Right Arm] Automatic Cuff Blood Pressure Position [Right Arm] Supine 02 Sat by Pulse Oximetry 99 Oxygen Delivery Method Room Air Room Air - Lab Data Lab Results 12/25/19 19:15: WBC 10.8, RBC 5.96 H, Hgb 17.3 H, Hct 51.1 H, MCV 85.8, MCH 29.1, MCHC 33.9, RDW 13.6, Plt Count 314, MPV 8.2, Neut % (Auto) 70.7, Lymph % (Auto) 22.4, Routt % (Auto) 5.3, Eos % (Auto) 1.2, Baso % (Auto) 0.4, Neut # (Auto) 7.6, Lymph # (Auto) 2.4, Rout[place] # (Auto) 0.6, Eos # (Auto) 0.1, Baso # (Auto) 0.1 12/25/19 19:15: Sodium 143, Potassium 4.0, Chloride 107, Carbon Dioxide 24, Anion Gap 16.0 H, BUN 13, Creatinine 0.50 L, Estimated Creat Clear 86, Estimated GFR 121, Est GFR ( Amer) 146, Glucose 194 H, Calcium 10.1, Total Bilirubin 1.1, AST 33, ALT 23, Alkaline Phosphatase 147 H, Troponin I < 0.01, Total Protein 7.8, Albumin 4.4, Globulin 3.4 H, Albumin/Globulin Ratio 1.3 12/25/19 19:15: Lipase 53 12/25/19 19:15: SARS-CoV-2 IgG Ab (Rapid) Negative, SARS-CoV-2 IgM Ab (Rapid) Negative 12/25/19 19:42: Lactate 2.2 H Orders (Tests/Meds): ED MEDICATIONS Generic Name Dose Route Start Last Admin Trade Name Freq PRN Reason Stop Dose Admin Sodium Chloride 1,000 mls @ 999 mls/hr 12/25/19 19:15 12/25/19 19:21 Sod Chlor 0.9% 1000ml Bag IV 12/25/19 20:15 999 mls/hr .Q1H1M MARGARET Administration Sodium Chloride 10 ml 12/25/19 19:15 12/25/19 19:21 Sodium Chloride 0.9% 10ml Vial IV 01/24/20 19:14 10 ml NEEDED PRN Administration to Dilute Lorazepam inj Discontinued Me
--- NOTE | 2019-12-25 19:18 | CT_ITS ---
PROCEDURE: CT HEAD/BRAIN WO CON CLINICAL INDICATION: vertigo, vomiting COMPARISON: CT CT HEAD/BRAIN WO CON from 05/27/2019 TECHNIQUE: Axial images obtained. All CT scans at the facility use one or more dose reduction, viz: automated exposure control, ma/kV adjustment per patient size (including targeted exams where dose is matched to indication, i.e. head), or iterative reconstruction technique. FINDINGS: No midline shift, mass effect, intracranial hemorrhage, hydrocephalus, or extra-axial fluid collection is evident. Scattered areas of hypoattenuation likely related to chronic small vessel ischemic changes. The calvarium has an unremarkable appearance. No mastoid effusion. No sinus air-fluid level. IMPRESSION: No acute intracranial finding Dictated by: Jonathan Jo MD 12/25/2019 22:06 Jonathan Jo MD in [facility] 12/25/2019 22:06
--- NOTE | 2019-12-25 19:20 | CT_ITS ---
PROCEDURE: CT ABDOMEN PELVIS WO CON CLINICAL INDICATION: abd pain, vomiting Nausea and vomiting with chills and generalized abdominal pain COMPARISON: CT CT ABDOMEN PELVIS WO CON from 05/27/2019 TECHNIQUE: Axial images obtained with sagittal and coronal reformats. All CT scans at the facility use one or more dose reduction, viz: automated exposure control, ma/kV adjustment per patient size (including targeted exams where dose is matched to indication, i.e. head), or iterative reconstruction technique. FINDINGS: LOWER THORAX: Ground-glass opacity noted in both lower lobes with volume loss in the right lung base with air bronchograms. Coronary artery calcifications are present. ABDOMEN & PELVIS: Prior cholecystectomy. The liver, spleen, adrenal glands, and pancreas are unremarkable. There is a small hiatal hernia. There are nonobstructing bilateral renal calculi. Exophytic density noted along the lower pole of the left kidney possibly related to stranding of the perinephric fat versus a small exophytic cyst. No hydronephrosis. No definite ureteral calculi. Prior appendectomy. Scattered colonic diverticula but no evidence of diverticulitis. There is a small umbilical hernia containing fat. IMPRESSION: 1. Bilateral nephrolithiasis. No definite ureteral calculi. 2. Other nonacute findings as detailed above. Dictated by: Jonathan Jo MD 12/25/2019 22:12 Jonathan Jo MD in [facility] 12/25/2019 22:12
[2019-12-25 19:38] LABS: Basophils # 0.1 K/mm3 (0-0.2); Basophils % 0.4 % (0.1-2.0); Eosinophils # 0.1 K/mm3 (0.0-0.4); Eosinophils % 1.2 % (0.1-12.0); Hematocrit 51.1 % (37.0-47.0); Hemoglobin 17.3 g/dL (12.2-16.2); Lymphocytes # 2.4 K/mm3 (0.7-4.5); Lymphocytes % 22.4 % (10-50); Mean Corpuscular HGB Conc 33.9 g/dL (31.8-35.4); Mean Corpuscular Hemoglobin 29.1 pg (27.0-31.2); Mean Corpuscular Volume 85.8 fl (81-99); Mean Platelet Volume 8.2 fl (7.4-10.4); Monocytes # 0.6 K/mm3 (0.1-1.0); Monocytes % 5.3 % (1.7-9.3); Neutrophils # 7.6 K/mm3 (1.8-7.8); Neutrophils % 70.7 % (37.0-80.0); Platelet Count 314 K/mm3 (142-424); Red Blood Count 5.96 M/mm3 (4.20-5.40); Red Cell Distribution Width 13.6 % (11.5-17.5); White Blood Count 10.8 K/mm3 (4.8-10.8)
[2019-12-25 19:40] LABS: Chloride 107 mmol/L (98-107); Sodium 143 mmol/L (136-145)
[2019-12-25 19:42] LABS: Blood Urea Nitrogen 13 mg/dl (7-17)
[2019-12-25 19:43] LABS: Alanine Aminotransferase 23 U/L (12-78); Albumin Level 4.4 g/dl (3.5-5.0); Albumin/Globulin Ratio 1.3 (1.1-1.8); Alkaline Phosphatase 147 U/L (38-126); Aspartate Amino Transferase 33 U/L (14-36); Bilirubin,Total 1.1 mg/dl (0.2-1.3); Calcium 10.1 mg/dl (8.4-10.2); Carbon Dioxide 24 mmol/L (22.0-30.0); Creatinine Clearance Estimated 86 mL/min (50-200); Estimated Glomerular Filt Rate 121 ml/min (>60); GFR (African American) 146 ML/MIN (>60); Globulin 3.4 g/dL (1.3-3.2); Glucose 194 mg/dl (74-100); Lipase 53 U/L (23-300); Total Protein,Serum 7.8 g/dl (6.3-8.2)
[2019-12-25 19:56] LABS: Troponin I < 0.01 ng/ml (0.00-0.034)
[2019-12-25 20:03] LABS: Lactic Acid 2.2 mmol/L (0.7-2.1)
--- NOTE | 2019-12-25 20:17 | PC.NURSE ---
Pt refused IV contrast, states it gives her a rash, CT changed to without contrast, Dr Gonzalez notified.
--- NOTE | 2019-12-25 20:47 | ECG_ITS ---
APPROVED REPORT Exam: Resting ECG HR:80 bpm ECG Measurements Heart Rate 80 AXES [place] 192 P 55 QRSd 70 QRS 5 QT 410 T 36 QTc 472 <Conclusion> Normal sinus rhythm Normal ECG Electronically signed by : Chad Cheung, 12/26/2019 13:51:50
[2019-12-25 21:21] LABS: Coronavirus 19 IgG Antibody Negative (Negative); Coronavirus 19 IgM Antibody Negative (Negative)
[2019-12-25 21:22] VITALS: BP 147/82; PULSE 98; RESP 14; TEMP 36.6; O2SAT 95
== END 2019-12-25 21:42 | disposition home or self-care (01) ==
PROVIDERS: Emergency Medicine; Emergency Provider Emergency Medicine; PCP Internal Medicine Adolescent Medicine
DX: R42 Dizziness and giddiness (principal); R10.84 Generalized abdominal pain; I10 Essential (primary) hypertension; E11.65 Type 2 diabetes mellitus with hyperglycemia; K21.9 Gastro-esophageal reflux disease without esophagitis; E78.5 Hyperlipidemia, unspecified; J44.9 Chronic obstructive pulmonary disease, unspecified; Z87.891 Personal history of nicotine dependence; Z20.828 Contact with and (suspected) exposure to other viral communicable diseases; Z79.899 Other long term (current) drug therapy; Z87.442 Personal history of urinary calculi; Z88.1 Allergy status to other antibiotic agents; Z88.8 Allergy status to other drugs, medicaments and biological substances; Z91.048 Other nonmedicinal substance allergy status
CPT/HCPCS: 36415; 70450; 74176; 80053; 83605; 83690; 84484; 85025; 86328; 93005; 96365; 96375; 99282; J2405

== ENCOUNTER → 2020-01-07 11:34 | Outpatient (CLI) | payer MEDICARE, BC, SELFPAY | PROVIDERS: Visit Provider Internal Medicine Adolescent Medicine | DX: Z03.818 Encounter for observation for suspected exposure to other biological agents ruled out (principal) | CPT/HCPCS: U0003 ==

== ENCOUNTER → 2020-03-23 12:53 | Outpatient (CLI) | payer MEDICARE, BC, SELFPAY ==
--- NOTE | 2020-03-23 12:57 | CT_ITS ---
PROCEDURE: CT ABDOMEN PELVIS WO CON CLINICAL INDICATION: HEMATURIA COMPARISON: CT CT ABDOMEN PELVIS WO CON from 12/25/2019 TECHNIQUE: Axial images obtained with sagittal and coronal reformats. All CT scans at the facility use one or more dose reduction, viz: automated exposure control, ma/kV adjustment per patient size (including targeted exams where dose is matched to indication, i.e. head), or iterative reconstruction technique. FINDINGS: Lower thorax: Inflammatory scarring with possible focal bronchiectasis posterior basilar segment lobe. The left lung base is clear. ABDOMEN: Liver: No masses or biliary dilatation. There are scattered tiny calcifications as noted previously. Gallbladder: Post cholecystectomy Pancreas: No masses or peripancreatic fluid collections. Spleen: Normal in size containing few scattered calcifications Adrenals: unremarkable Kidneys/ureters: Kidneys are normal in size and there are nonobstructing calculi each kidney as noted previously. No obstructive uropathy either kidney. ABDOMEN & PELVIS: Stomach bowel: Stomach and duodenal sweep appear normal. There is a small sliding hiatal hernia. The small bowel is normal. There is large amount stool in the cecum and ascending colon and hepatic flexure and transverse colon with the left colon being decompressed. There are few scattered diverticuli of the lower descending and sigmoid colon. There is no diverticulitis. Peritoneum: There is a small umbilical hernia containing fat only. Lymph nodes: No enlarged lymph nodes apparent. Vasculature: There is diffuse arthrosclerotic calcification of the infrarenal aorta and proximal common iliac arteries but there is no aneurysm. Bones: There are mild degenerate changes lower thoracic spine. PELVIS: Reproductive: The uterus is normal in size and in the midline. Bladder: The urinary bladder is partially decompressed, there is no free fluid in the pelvis. There are few pelvic calcifications likely phleboliths. Appendix: Post appendectomy IMPRESSION: Stable bilateral nephrolithiasis, moderately large amount right-sided stool, no acute abdominal or pelvic pathology identified Dictated by: Dr. Marco Augustin MD 03/23/2020 13:24 Dr. Marco Augustin MD in [facility] 03/23/2020 13:24
== END ==
PROVIDERS: PCP Internal Medicine Adolescent Medicine; Visit Provider Internal Medicine Adolescent Medicine
DX: R31.9 Hematuria, unspecified (principal)
CPT/HCPCS: 74176

== ENCOUNTER → 2020-03-30 15:21 | Outpatient (CLI) | payer MEDICARE, BC, SELFPAY ==
--- NOTE | 2020-03-30 15:35 | XR_ITS ---
PROCEDURE: XR HIP RT 2-3V W/PELVIS CLINICAL INDICATION: COMPARISON: No exams were available for comparison FINDINGS: No fracture or dislocation is evident. No significant degenerative change. No lytic or blastic change. Unremarkable soft tissues. IMPRESSION: No acute findings. Dictated by: Jonathan Jo MD 03/30/2020 16:23 Jonathan Jo MD in [facility] 03/30/2020 16:23
--- NOTE | 2020-03-30 15:35 | XR_ITS ---
PROCEDURE: XR CHEST 2V CLINICAL HISTORY: Chronic cough COMPARISON: CT [facility] CT CHEST W/O CONTRAST from 11/01/2016 DX XR CHEST 2V from 04/08/2019 CR XR CHEST PORTABLE from 05/27/2019 CR XR CHEST 2V from 10/23/2019 FINDINGS: The cardiomediastinal silhouette and pulmonary vascularity are within normal limits. The lungs are clear without infiltrates, suspicious nodules, or pleural effusions. No acute bony abnormalities. IMPRESSION: No acute findings. Dictated by: Jonathan Jo MD 03/30/2020 16:22 Jonathan Jo MD in [facility] 03/30/2020 16:22
--- NOTE | 2020-03-30 15:35 | XR_ITS ---
PROCEDURE: XR HIP LT 2-3V W/PELVIS CLINICAL INDICATION: Pain COMPARISON: CR XR HIP RT 2-3V W/PELVIS from 03/30/2020 FINDINGS: No fracture or dislocation. No lytic or blastic change. The hip joint space is well preserved. There is some minimal spurring along the inferior aspect of the SI joint on the left. IMPRESSION: Negative left hip. Minimal degenerative changes left SI joint Dictated by: Jonathan Jo MD 03/30/2020 16:24 Jonathan Jo MD in [facility] 03/30/2020 16:24
[2020-03-30 15:43] LABS: Basophils # 0.1 K/mm3 (0-0.2); Basophils % 0.7 % (0.1-2.0); Eosinophils # 0.3 K/mm3 (0.0-0.4); Eosinophils % 1.8 % (0.1-12.0); Hemoglobin 16.1 g/dL (12.2-16.2); Lymphocytes # 1.7 K/mm3 (0.7-4.5); Lymphocytes % 11.4 % (10-50); Mean Corpuscular HGB Conc 32.8 g/dL (31.8-35.4); Mean Corpuscular Hemoglobin 28.7 pg (27.0-31.2); Mean Corpuscular Volume 87.2 fl (81-99); Mean Platelet Volume 8.5 fl (7.4-10.4); Monocytes # 0.9 K/mm3 (0.1-1.0); Monocytes % 6.4 % (1.7-9.3); Neutrophils # 11.6 K/mm3 (1.8-7.8); Neutrophils % 79.7 % (37.0-80.0); Platelet Count 407 K/mm3 (142-424); Red Blood Count 5.61 M/mm3 (4.20-5.40); Red Cell Distribution Width 13.5 % (11.5-17.5); White Blood Count 14.6 K/mm3 (4.8-10.8)
[2020-03-30 16:07] LABS: Alanine Aminotransferase 18 U/L (12-78); Albumin/Globulin Ratio 1.3 (1.1-1.8); Alkaline Phosphatase 134 U/L (38-126); Anion Gap 12.5 mEq/L (5-15); Aspartate Amino Transferase 24 U/L (14-36); Bilirubin,Total 1.3 mg/dl (0.2-1.3); Blood Urea Nitrogen 20 mg/dl (7-17); Calcium 10.1 mg/dl (8.4-10.2); Carbon Dioxide 31 mmol/L (22.0-30.0); Chloride 98 mmol/L (98-107); Chol/HDL Ratio 2.5 (1-3.5); Cholesterol 153 mg/dl (140-200); Estimated Glomerular Filt Rate 44 ml/min (>60); GFR (African American) 53 ML/MIN (>60); Globulin 3.2 g/dL (1.3-3.2); Glucose 196 mg/dl (74-100); HDL Cholesterol 62 mg/dl (40-60); Potassium 3.5 mmoL/L (3.5-5.1); Sodium 138 mmol/L (136-145); Total Protein,Serum 7.2 g/dl (6.3-8.2); Triglycerides 97 mg/dl (30-150); VLDL Cholesterol 19 mg/dL (0-40)
[2020-03-30 16:18] LABS: Direct LDL Cholesterol 70.61 mg/dL (100-129)
[2020-03-30 16:25] LABS: 25-OH Vitamin D, Total 18.5 ng/mL (30-100)
[2020-03-30 16:27] LABS: Hemoglobin A1C 6.6 % (4.0-6.0)
[2020-03-30 16:40] LABS: Thyroid Stimulating Hormone 1.29 uIU/mL (0.465-4.68)
[2020-03-30 16:58] LABS: Vitamin B12 631 pg/mL (239-931)
== END ==
PROVIDERS: Visit Provider Internal Medicine Adolescent Medicine
DX: R42 Dizziness and giddiness (principal); E78.5 Hyperlipidemia, unspecified; E11.9 Type 2 diabetes mellitus without complications; M16.0 Bilateral primary osteoarthritis of hip; R05 Cough; E55.9 Vitamin D deficiency, unspecified
CPT/HCPCS: 36415; 71046; 73502; 80053; 80061; 82306; 82607; 83036; 84443; 85025

== ENCOUNTER → 2020-04-09 12:41 | Outpatient (CLI) | payer MEDICARE, BC, SELFPAY ==
[2020-04-09 14:49] LABS: Chloride 107 mmol/L (98-107); Potassium 4.3 mmoL/L (3.5-5.1); Sodium 144 mmol/L (136-145)
[2020-04-09 14:52] LABS: Anion Gap 12.3 mEq/L (5-15); Blood Urea Nitrogen 13 mg/dl (7-17); Calcium 9.7 mg/dl (8.4-10.2); Carbon Dioxide 29 mmol/L (22.0-30.0); Estimated Glomerular Filt Rate 82 ml/min (>60); GFR (African American) 99 ML/MIN (>60); Glucose 139 mg/dl (74-100)
== END ==
PROVIDERS: Visit Provider Internal Medicine Adolescent Medicine
DX: N17.9 Acute kidney failure, unspecified (principal)
CPT/HCPCS: 36415; 80048

== ENCOUNTER → 2020-04-29 11:48 | Outpatient (CLI) | payer MEDICARE, BC, SELFPAY ==
[2020-04-29 13:36] LABS: Coronavirus 19 IgG Antibody Negative (Negative); Coronavirus 19 IgM Antibody Negative (Negative)
== END ==
PROVIDERS: Visit Provider Internal Medicine Gastroenterology
DX: Z01.812 Encounter for preprocedural laboratory examination (principal); Z20.822 Contact with and (suspected) exposure to COVID-19; Z13.810 Encounter for screening for upper gastrointestinal disorder
CPT/HCPCS: 36415; 86328

== ENCOUNTER → 2020-05-21 14:40 | Outpatient (CLI) | payer MEDICARE, BC, SELFPAY ==
[2020-05-21 15:03] LABS: Basophils % 0.5 % (0.1-2.0); Eosinophils # 1.6 K/mm3 (0.0-0.4); Eosinophils % 19.1 % (0.1-12.0); Hematocrit 47.3 % (37.0-47.0); Hemoglobin 14.9 g/dL (12.2-16.2); Lymphocytes # 1.8 K/mm3 (0.7-4.5); Lymphocytes % 21.1 % (10-50); Mean Corpuscular HGB Conc 31.4 g/dL (31.8-35.4); Mean Corpuscular Hemoglobin 28.2 pg (27.0-31.2); Mean Corpuscular Volume 89.8 fl (81-99); Mean Platelet Volume 7.9 fl (7.4-10.4); Monocytes # 0.4 K/mm3 (0.1-1.0); Neutrophils # 4.6 K/mm3 (1.8-7.8); Neutrophils % 54.2 % (37.0-80.0); Platelet Count 384 K/mm3 (142-424); Red Blood Count 5.27 M/mm3 (4.20-5.40); Red Cell Distribution Width 13.4 % (11.5-17.5); White Blood Count 8.5 K/mm3 (4.8-10.8)
[2020-05-21 16:19] LABS: Chloride 105 mmol/L (98-107); Potassium 3.8 mmoL/L (3.5-5.1); Sodium 143 mmol/L (136-145)
[2020-05-21 16:22] LABS: Anion Gap 9.8 mEq/L (5-15); Blood Urea Nitrogen 16 mg/dl (7-17); Calcium 10.2 mg/dl (8.4-10.2); Carbon Dioxide 32 mmol/L (22.0-30.0); Estimated Glomerular Filt Rate 82 ml/min (>60); GFR (African American) 99 ML/MIN (>60); Glucose 133 mg/dl (74-100)
== END ==
PROVIDERS: Visit Provider Internal Medicine Adolescent Medicine
DX: E11.9 Type 2 diabetes mellitus without complications (principal); E78.5 Hyperlipidemia, unspecified
CPT/HCPCS: 36415; 80048; 85025

== ENCOUNTER → 2020-07-16 09:39 | Outpatient (CLI) | payer MEDICARE, BC, SELFPAY ==
[2020-07-16 10:39] LABS: Coronavirus 19 IgG Antibody Negative (Negative); Coronavirus 19 IgM Antibody Negative (Negative)
== END ==
PROVIDERS: Visit Provider Internal Medicine Gastroenterology
DX: Z01.812 Encounter for preprocedural laboratory examination (principal); Z11.52 Encounter for screening for COVID-19; Z13.810 Encounter for screening for upper gastrointestinal disorder
CPT/HCPCS: 36415; 86328

== ENCOUNTER 2020-07-17 08:26 | Day surgery (SDC) | payer MEDICARE, BC, SELFPAY ==
[2020-07-09 13:08] VITALS: BMI 36.8
[2020-07-17 09:07] VITALS: BP 170/69; PULSE 78; RESP 18; TEMP 36.2; O2SAT 99
--- NOTE | 2020-07-17 09:16 | P.PN_ITS ---
[facility] Anesthesia Checklist - Patient Identification Patient Identification: Arm Band - Structural Data Admitted From: Home Planned Operative Procedure/s: EGD Consent for Planned Operative Procedure(s) Verified: Yes - NPO Status Verified Time NPO: 00:00 - Additional verifications Anesthesia Reactions: No - Airway Assessment Dentition: Poor Dentition (Missing) - Neurological Assessment Level of Consciousness: Awake, Alert Hx Seizures: No Numbness or tingling in extremities: No - Anesthesia Plan Anesthesia Risk discussed: Yes Anesthesia Plan: Verified ASA Class: III Anesthesia Type: MAC [facility] History Medical History: Reports:: Asthma, Chronic Obstructive Pulmonary Disease (COPD), Diabetes Mellitus Type 2, Gastroesophageal Reflux Disease(GERD), Hyperlipidemia, Hypertension, Kidney Stones Denies:: Cancer, Cerebrovascular Accident, Diabetes Mellitus Type 1, Internal Pacemaker, MRSA, Myocardial Infarction, Renal Disease, Renal Insufficiency, Seizures *Have you ever received a pneumonia vaccine?: Yes *Have you received a flu vaccine this season?: Yes Other Medical History: Reports: Arthritis, Fibromyalgia Anesthesia experience/problems:: Difficulty waking up Laterality Cases: Right: Lumpectomy, Bilateral: Tonsillectomy Other Surgeries: Yes: Appendectomy, Colonoscopy, Dilation and Curettage, Other. No: Pacemaker Amputation: No Fractures: No - *Social History Last grade of school completed: High school graduate Smoking Status: Former smoker Tobacco Type: cigarettes Alcohol Intake: never Substance Use Type: denies use *Occupational Status:: retired Housing: house *Travel in the last 8 weeks: None Family Hx:: Cancer, Coronary Artery Disease, Heart Attack BONDING AGENT history: No BONDING AGENT history
[2020-07-17 09:20] LABS: POC Glucose,Bedside 116 (70-110)
--- NOTE | 2020-07-17 09:54 | P.PCN_ITS ---
[facility] Procedure Note Procedure Note:: Upper Endoscopy Procedure Report: Esophagogastroduodenoscopy with cold biopsies and TTS balloon dilation Endoscopost: Wagner Marcelino II, MD Referring Physician: James Stack M.D. Date of Procedure: July 17, 2020 Equipment: Olympus GIF 190 standard upper endoscope Sedation: MAC sedation Indications: Mrs. Massey is a 75-year-old female with globus sensation. She has had this for many years (decades). She has seen at least 2 ENT physicians (Dr. Cedric Diaz and Dr. Ambar Tan). She has also seen an telesales advisor. She does have some chronic reflux and minor heartburn. This is controlled mainly with omeprazole. She does get moderate bloating and does have a history of IBS with constipation. She does take Linzess. The patient does report occasional dysphagia. She also reports occasional regurgitation, fullness and early satiety. Procedure: Prior to the procedure, a history and physical exam was performed, and patient's medications and allergies were reviewed. The risks, benefits and alternatives of the sedation and procedure were discussed with the patient. All questions were answered and informed consent was obtained. The patient was brought to the procedure room. Patient identification and proposed procedure were verified by the physician and the nurse. The patient was placed in a left lateral decubitus position and the scope was passed under direct vision. Throughout the procedure, the patient's blood pressure, pulse, and oxygen saturations were monitored continuously. The upper GI endoscopy was accomplished without difficulty. The patient tolerated the procedure well. Findings: The scope was passed directly into the upper esophagus and advanced to the third portion of the duodenum. The post bulbar duodenum and duodenal bulb were normal with normal mucosa and conniventes. The scope was withdrawn through a normal duodenal bulb and pylorus into the stomach. There was moderate bile reflux with linear reactive gastropathy of the antrum and body of the stomach. The remainder of the fundus of the stomach was grossly normal. Upon retroflexion there was a very small sliding 1 to 2 cm hiatal hernia. 2 biopsies were taken in the antrum and along the lesser curvature for histology to rule out gastritis and/or H pylori. The scope was then withdrawn into the esophagus. There was no evidence of reflux esophagitis or Chavez's. There was no Schatzki's ring. There were strong tertiary contractions and evidence of moderate esophageal dysmotility. The entire esophagus was dilated to 60 [place]/20 mm with a TTS hydrostatic balloon. There was resistance at the cricopharyngeus (i.e. cricopharyngeal spasm). The remainder of the esophageal mucosa was normal. Impression: 1. Cricopharyngeal spasm status post dilation to 20 mm 2. Nonerosive GERD with moderate esophageal dysmotility and very small sliding hiatal hernia (1 to 2 cm) 3. Bile reflux with moderate linear reactive gastropathy Plan: I will follow-up the biopsies. The patient does have globus sensation secondary to cricopharyngeal spasm. I do feel this functional GERD and esophageal dysmotility/spasm is related to her obstipation with gas pressure gradients. I would encourage dietary measures, bulk fiber supplementation and possibly promotility therapy and/or Iberogast.
[2020-07-17 09:58] VITALS: BP 158/89; PULSE 77; RESP 18; TEMP 36.2; O2SAT 93
[2020-07-17 10:08] VITALS: BP 157/73; PULSE 71; RESP 18
[2020-07-17 10:18] VITALS: BP 157/81; PULSE 70; RESP 18
[2020-07-17 10:30] VITALS: BP 146/85; PULSE 74; RESP 18; O2SAT 97
[2020-07-17 10:46] VITALS: O2SAT 97
== END 2020-07-17 10:40 | disposition home or self-care (01) ==
LOC: OUTP 08:29
PROVIDERS: PCP Internal Medicine Adolescent Medicine; Visit Provider Internal Medicine Gastroenterology
PROC: 0DJ08ZZ Inspection of Upper Intestinal Tract, Via Natural or Artificial Opening Endoscopic (ICD-10-PCS; CPT 43235; principal; 2020-07-17 09:30)
DX: J39.2 Other diseases of pharynx (principal); K21.9 Gastro-esophageal reflux disease without esophagitis; K22.4 Dyskinesia of esophagus; K31.9 Disease of stomach and duodenum, unspecified; K44.9 Diaphragmatic hernia without obstruction or gangrene; E11.9 Type 2 diabetes mellitus without complications; J44.9 Chronic obstructive pulmonary disease, unspecified; E78.5 Hyperlipidemia, unspecified; I10 Essential (primary) hypertension; Z87.442 Personal history of urinary calculi; M19.90 Unspecified osteoarthritis, unspecified site; M79.7 Fibromyalgia; Z90.49 Acquired absence of other specified parts of digestive tract; Z87.891 Personal history of nicotine dependence
CPT/HCPCS: 43239; 43249; 82962; 88305; C1726

== ENCOUNTER → 2020-10-19 14:35 | Outpatient (POV) | payer MEDICARE, BC, SELFPAY | PROVIDERS: Visit Provider Nurse Practitioner Family | DX: Z00.00 Encounter for general adult medical examination without abnormal findings (principal) ==

== ENCOUNTER → 2020-12-17 16:45 | Outpatient (CLI) | payer MEDICARE, BC, SELFPAY ==
[2020-12-17 18:24] LABS: Chloride 106 mmol/L (98-107); Potassium 4.2 mmoL/L (3.5-5.1); Sodium 143 mmol/L (136-145)
[2020-12-17 18:27] LABS: Anion Gap 10.2 mEq/L (5-15); Blood Urea Nitrogen 17 mg/dl (7-17); Carbon Dioxide 31 mmol/L (22.0-30.0); Estimated Glomerular Filt Rate 82 ml/min (>60); GFR (African American) 99 ML/MIN (>60)
[2020-12-17 18:28] LABS: Calcium 9.7 mg/dl (8.4-10.2); Glucose 167 mg/dl (74-100)
== END ==
PROVIDERS: Visit Provider Internal Medicine Adolescent Medicine
DX: E11.9 Type 2 diabetes mellitus without complications (principal); R25.2 Cramp and spasm
CPT/HCPCS: 36415; 80048; 83036

== ENCOUNTER → 2020-12-18 12:57 | Outpatient (CLI) | payer MEDICARE, BC, SELFPAY ==
[2020-12-26 12:03] LABS: Magnesium, Urine 3.3 mg/dL (Not Estab.)
== END ==
PROVIDERS: Visit Provider Internal Medicine Adolescent Medicine
DX: R25.2 Cramp and spasm (principal)
CPT/HCPCS: 83735

== ENCOUNTER → 2021-03-11 12:15 | Outpatient (CLI) | payer MEDICARE, BC, SELFPAY ==
[2021-03-11 12:45] LABS: Basophils # 0.1 K/mm3 (0-0.2); Basophils % 0.9 % (0.1-2.0); Eosinophils # 0.4 K/mm3 (0.0-0.4); Eosinophils % 5.4 % (0.1-12.0); Hematocrit 42.4 % (37.0-47.0); Lymphocytes # 1.7 K/mm3 (0.7-4.5); Lymphocytes % 24.5 % (10-50); Mean Corpuscular Hemoglobin 28.4 pg (27.0-31.2); Mean Corpuscular Volume 86.1 fl (81-99); Monocytes # 0.6 K/mm3 (0.1-1.0); Neutrophils # 4.4 K/mm3 (1.8-7.8); Neutrophils % 61.2 % (37.0-80.0); Platelet Count 333 K/mm3 (142-424); Red Blood Count 4.93 M/mm3 (4.20-5.40); Red Cell Distribution Width 13.3 % (11.5-17.5); White Blood Count 7.1 K/mm3 (4.8-10.8)
[2021-03-11 13:39] LABS: T4 (Thyroxine) 10.1 ug/dl (5.53-11.0); Triiodothryronine (T3) Uptake 30 % (23.5-40.5)
[2021-03-11 13:52] LABS: Thyroid Stimulating Hormone 1.66 uIU/mL (0.465-4.68)
[2021-03-11 14:58] LABS: Hemoglobin A1C 6.4 % (4.0-6.0)
[2021-03-11 15:26] LABS: Chloride 106 mmol/L (98-107); Potassium 3.9 mmoL/L (3.5-5.1); Sodium 143 mmol/L (136-145)
[2021-03-11 15:28] LABS: Alanine Aminotransferase 15 U/L (12-78); Aspartate Amino Transferase 24 U/L (14-36); Blood Urea Nitrogen 18 mg/dl (7-17); Estimated Glomerular Filt Rate 82 ml/min (>60); GFR (African American) 99 ML/MIN (>60)
[2021-03-11 15:29] LABS: Albumin Level 3.9 g/dl (3.5-5.0); Albumin/Globulin Ratio 1.3 (1.1-1.8); Alkaline Phosphatase 122 U/L (38-126); Anion Gap 10.9 mEq/L (5-15); Bilirubin,Total 0.5 mg/dl (0.2-1.3); Calcium 9.4 mg/dl (8.4-10.2); Carbon Dioxide 30 mmol/L (22.0-30.0); Chol/HDL Ratio 2.4 (1-3.5); Cholesterol 153 mg/dl (140-200); Globulin 2.9 g/dL (1.3-3.2); Glucose 133 mg/dl (74-100); HDL Cholesterol 65 mg/dl (40-60); Magnesium 1.8 mg/dl (1.6-2.3); Total Protein,Serum 6.8 g/dl (6.3-8.2); Triglycerides 75 mg/dl (30-150); VLDL Cholesterol 15 mg/dL (0-40)
[2021-03-11 15:40] LABS: Direct LDL Cholesterol 72.59 mg/dL (100-129)
== END ==
PROVIDERS: Visit Provider Internal Medicine Adolescent Medicine
DX: E78.5 Hyperlipidemia, unspecified (principal); E11.9 Type 2 diabetes mellitus without complications; K58.0 Irritable bowel syndrome with diarrhea
CPT/HCPCS: 36415; 80053; 80061; 83036; 83735; 84436; 84443; 84479; 85025

== ENCOUNTER → 2021-04-21 16:02 | Outpatient (CLI) | payer MEDICARE, BC, SELFPAY ==
--- NOTE | 2021-04-21 16:10 | MM_ITS ---
PROCEDURE INFORMATION: Exam: MG Bilateral Screening 3D Mammography Exam date and time: 04/21/2021 4:10 PM Age: 76 years old Clinical indication: Encounter for screening mammogram for malignant neoplasm of breast; Additional info: Breast cancer screening by mammogram. Family history of breast carcinoma. TECHNIQUE: Imaging protocol: Bilateral Screening tomosynthesis and 2D mammography including computer-aided detection (CAD) when performed. COMPARISON: 1. MG MM DIG SCREENING MAMM BI W/CAD 09/18/2019 8:41 AM 2. MG SCBI MM Dig screening mamm BI w/CAD 02/12/2018 4:54 PM 3. MG DMSB DIG MAMM-SCREEN ALEKSANDRA W/CAD 01/20/2017 8:56 AM FINDINGS: MAMMOGRAPHY: Breast composition: There are scattered areas of fibroglandular density. Mass: No suspicious masses. Architectural distortion: No suspicious distortion. Calcifications: No suspicious calcifications. Asymmetric density: None. Skin thickening: None. Axillary adenopathy: None. IMPRESSION: No mammographic evidence of malignancy. Annual screening is recommended unless otherwise clinically indicated. ASSESSMENT: BI-RADS Category 1: Negative
== END ==
PROVIDERS: PCP Internal Medicine Adolescent Medicine; Visit Provider Internal Medicine Adolescent Medicine
DX: Z12.31 Encounter for screening mammogram for malignant neoplasm of breast (principal)
CPT/HCPCS: 77063; 77067

== ENCOUNTER → 2021-06-12 10:51 | Outpatient (CLI) | payer MEDICARE, BC, SELFPAY | PROVIDERS: PCP Internal Medicine Adolescent Medicine; Visit Provider Internal Medicine Adolescent Medicine | DX: J18.0 Bronchopneumonia, unspecified organism (principal) | CPT/HCPCS: 87070; 87205 ==

== ENCOUNTER → 2021-07-01 16:40 | Outpatient (CLI) | payer MEDICARE, BC, SELFPAY ==
--- NOTE | 2021-07-01 17:21 | XR_ITS ---
PROCEDURE INFORMATION: Exam: XR Chest Exam date and time: 07/01/2021 5:22 PM Age: 76 years old Clinical indication: Screening exam; Other screening; Additional info: Check up TECHNIQUE: Imaging protocol: XR of the chest. Views: 2 views. Total images: 2 COMPARISON: CR XR CHEST 2V 03/30/2020 3:38 PM FINDINGS: Lungs: Question slight hyperexpansion and hyperlucency with minimal diaphragmatic flattening suggesting possible COPD. Pulmonary vasculature grossly normal. New mild alveolar opacities in the medial lung bases which are nonspecific and could relate to patchy mild subsegmental atelectasis or pneumonia. Given the medial bilateral distribution, consider aspiration. Pleural spaces: No pleural effusion. No pneumothorax. Heart/Mediastinum: Heart size normal. No tracheal/mediastinal shift. Vasculature: The aorta demonstrates mild ectasia/tortuosity and mild calcific atherosclerosis. Bones/joints: No acute osseous abnormalities are identified. IMPRESSION: 1. Patchy mild alveolar opacities in the medial lung bases concerning for atelectasis or pneumonia. Consider aspiration. 2. Suspect underlying COPD.
[2021-07-01 17:29] LABS: Basophils # 0.1 K/mm3 (0-0.2); Basophils % 1.1 % (0.1-2.0); Eosinophils # 0.3 K/mm3 (0.0-0.4); Eosinophils % 2.6 % (0.1-12.0); Hematocrit 41.9 % (37.0-47.0); Hemoglobin 13.6 g/dL (12.2-16.2); Lymphocytes # 1.7 K/mm3 (0.7-4.5); Lymphocytes % 15.6 % (10-50); Mean Corpuscular HGB Conc 32.5 g/dL (31.8-35.4); Mean Corpuscular Hemoglobin 28.3 pg (27.0-31.2); Mean Corpuscular Volume 87.1 fl (81-99); Mean Platelet Volume 8.6 fl (7.4-10.4); Monocytes # 0.6 K/mm3 (0.1-1.0); Monocytes % 5.2 % (1.7-9.3); Neutrophils # 8.4 K/mm3 (1.8-7.8); Neutrophils % 75.5 % (37.0-80.0); Platelet Count 397 K/mm3 (142-424); Red Blood Count 4.81 M/mm3 (4.20-5.40); Red Cell Distribution Width 13.9 % (11.5-17.5); White Blood Count 11.1 K/mm3 (4.8-10.8)
[2021-07-01 17:57] LABS: NT Pro Brain Natriuretic Pep. 76.3 pg/mL (0-450)
[2021-07-01 18:02] LABS: Hemoglobin A1C 6.9 % (4.0-6.0)
[2021-07-01 18:25] LABS: Chloride 110 mmol/L (98-107); Sodium 144 mmol/L (136-145)
[2021-07-01 18:27] LABS: Blood Urea Nitrogen 18 mg/dl (7-17); Estimated Glomerular Filt Rate 54 ml/min (>60); GFR (African American) 65 ML/MIN (>60)
[2021-07-01 18:28] LABS: Alanine Aminotransferase 15 U/L (12-78); Albumin Level 3.6 g/dl (3.5-5.0); Albumin/Globulin Ratio 1.1 (1.1-1.8); Alkaline Phosphatase 136 U/L (38-126); Aspartate Amino Transferase 22 U/L (14-36); Bilirubin,Total 0.5 mg/dl (0.2-1.3); Carbon Dioxide 27 mmol/L (22.0-30.0); Globulin 3.2 g/dL (1.3-3.2); Glucose 115 mg/dl (74-100); Total Protein,Serum 6.8 g/dl (6.3-8.2)
[2021-07-01 18:59] LABS: Thyroid Stimulating Hormone 0.94 uIU/mL (0.465-4.68)
== END ==
PROVIDERS: Nurse Practitioner Family; PCP Internal Medicine Adolescent Medicine; Visit Provider Internal Medicine Adolescent Medicine
DX: R06.02 Shortness of breath (principal); R53.1 Weakness; R53.83 Other fatigue; E11.9 Type 2 diabetes mellitus without complications; J45.909 Unspecified asthma, uncomplicated; R05.3 Chronic cough
CPT/HCPCS: 36415; 71046; 80053; 83036; 83880; 84443; 85025

== ENCOUNTER → 2021-08-03 09:33 | Outpatient (CLI) | payer MEDICARE, BC, SELFPAY ==
--- NOTE | 2021-08-03 09:40 | XR_ITS ---
FINAL REPORT CLINICAL HISTORY: SOB..f/u from pneumonia COMPARISON: July 01, 2021 FINDINGS: Two views of the chest were obtained. The heart size and pulmonary vascularity are within normal limits. The mediastinum is normal. There is persistent mild left basilar opacity which may represent atelectasis or pneumonia.. There is no pneumothorax. The bony thorax is intact. IMPRESSION: Persistent mild left basilar atelectasis or pneumonia. Reviewed, Interpreted and Dictated by Spencer Stoner III, MD Transcribed by Chapincito Espinosa Authenticated by Spencer Stoner III, MD on 08/03/2021 11:03:18 AM [facility]
== END ==
PROVIDERS: PCP Internal Medicine Adolescent Medicine; Visit Provider Nurse Practitioner Family
DX: R06.02 Shortness of breath (principal)
CPT/HCPCS: 71046

== ENCOUNTER 2021-08-19 15:00 | Outpatient (RCR) | payer MEDICARE, BC, SELFPAY ==
--- NOTE | 2021-06-03 15:51 | HMH.PTOPEV ---
PT Outpatient Evaluation Rehab PT Outpatient Evaluation Start: 06/03/21 15:00 Freq: Status: Active Protocol: Document 06/03/21 15:01 DENNYSSTEPHANIE (Rec: 06/03/21 15:51 OPHELIAMEIR [id number]) Electronically Signed By Carroll Mike PT 06/03/21 15:01 Outpatient Therapy Subjective History Subjective History This is the initial Physical THerapy evalaution for Charley Massey. Pt is a pleasant 76 y/ o female well known to therapist for frquent visits to therapy. Pt has long history of weakness, gait disturbances, balance issues, and falls. Pt reports over the winter she was unable to maintain activity levels and began having increased gait issues and falls. Pt reports she has fallen several times but is unsure of how many in last 6 months. Pt has beginning stages of Alzheimer' s and is unable to recall certain answers to questions. Chief Complaint Weakness Symptom Type Other Symptoms Relieved By Nothing Symptoms Aggravated By Bending/Stooping,Physical Activity,Walking Prior Functional Limitations None Current Functional Limitations Housework,Recreation Activity, Walking,Stairs,Balance Symptom Description Intermittent Balance Eval Chief Complaint vertigo No Did you feel dizzy, unsteady or faint? Yes Hx of Falls Hx Falls Yes Number in last 6 months 3 Gait/Posture Asssessment General Gait Observation Shuffling Step,Decrease Stride Lngth (R),Decrease Stride Lngth (L) Assistive Devices None / NA Level of Transfer Assist Standby Assistance,Assistance x1 Hip Observation in Gait Swing Externally Rotated Timed Up and Go Test 1. Is the Timed Up and Go test result > yes or = to 12 seconds? [place] Feet Together/Eyes open/Stable Surface fail Feet Together/Eyes Closed/Stable Surface fail Feet Together/Eyes open/Unstable Surface fail Feet Together/Eyes Closed/Unstable fail Surface Outpatient Therapy Assessment Impairments Problems/Impairmments Impaired Strength,Impaired Gait Pattern,Impaired Walking,
== END 2021-08-19 15:05 | disposition home or self-care (01) ==
LOC: PT 15:00
PROVIDERS: PCP Internal Medicine Adolescent Medicine; Visit Provider Internal Medicine Adolescent Medicine
DX: R29.6 Repeated falls (principal)
CPT/HCPCS: 97110; 97112; 97116; 97163; 97164

== ENCOUNTER → 2021-08-25 12:58 | Outpatient (CLI) | payer MEDICARE, BC, SELFPAY ==
--- NOTE | 2021-08-25 13:09 | CT_ITS ---
FINAL REPORT TECHNIQUE: Axial images were obtained from the lung apex to the mid abdomen by computed tomography. Coronal reformatted images were obtained. This study was performed with techniques to keep radiation doses as low as reasonably achievable, (ALARA). Individualized dose reduction techniques using automated exposure control or adjustment of mA and/or kV according to the patient''s size were employed. CLINICAL HISTORY: DYSPNEA,COUGH FINDINGS: There is no axillary adenopathy. There is no hilar or mediastinal adenopathy. Heart size is normal. There are moderate coronary artery calcifications. There is no pericardial or pleural effusion. Limited images of the upper abdomen demonstrate postoperative changes from cholecystectomy. On the lung window images there is bronchial wall thickening which is greater in the lower lobes. There are multiple small nodules in the right upper lobe. There is atelectasis or pneumonia in both lower lobes. IMPRESSION: Overall appearance is most worrisome for inflammatory/infectious process and may represent mycobacterial/fungal disease is or multifocal pneumonia. Reviewed, Interpreted and Dictated by Spencer Stoner III, MD Transcribed by Stacy Chaney Authenticated and [facility]
== END ==
PROVIDERS: PCP Internal Medicine Adolescent Medicine; Visit Provider Internal Medicine Adolescent Medicine
DX: R06.09 Other forms of dyspnea (principal); R05.9 Cough, unspecified
CPT/HCPCS: 71250

== ENCOUNTER → 2021-09-02 15:11 | Outpatient (CLI) | payer MEDICARE, BC, SELFPAY ==
[2021-09-04 21:15] LABS: QuantiFERON-TB Gold Plus Negative (Negative)
== END ==
PROVIDERS: PCP Internal Medicine Adolescent Medicine; Visit Provider Internal Medicine Adolescent Medicine
DX: R91.1 Solitary pulmonary nodule (principal); Z20.1 Contact with and (suspected) exposure to tuberculosis
CPT/HCPCS: 36415; 86480

== ENCOUNTER → 2021-09-08 16:01 | Outpatient (CLI) | payer MEDICARE, BC, SELFPAY | PROVIDERS: PCP Internal Medicine Adolescent Medicine; Visit Provider Internal Medicine Adolescent Medicine | DX: J18.9 Pneumonia, unspecified organism (principal) | CPT/HCPCS: 87070; 87205 ==

== ENCOUNTER → 2021-09-17 16:37 | Outpatient (CLI) | payer MEDICARE, BC, SELFPAY ==
[2021-09-17 18:35] LABS: C-Reactive Protein 7.2 mg/L (0-4)
[2021-09-21 16:18] LABS: Histoplasma Gal'mannan Ag Ur <0.5 (<0.5 ng/mL)
[2021-09-22 09:45] LABS: Fungitell(Beta D-Glucan) Serum 35 pg/mL (<80)
== END ==
PROVIDERS: PCP Internal Medicine Adolescent Medicine; Visit Provider Internal Medicine Pulmonary Disease
DX: R06.00 Dyspnea, unspecified (principal); J84.10 Pulmonary fibrosis, unspecified
CPT/HCPCS: 36415; 86140; 86606; 86612; 87385; 87449

== ENCOUNTER → 2021-09-18 12:45 | Outpatient (CLI) | payer MEDICARE, BC, SELFPAY | PROVIDERS: PCP Internal Medicine Adolescent Medicine; Visit Provider Internal Medicine Pulmonary Disease | DX: J18.9 Pneumonia, unspecified organism (principal) | CPT/HCPCS: 87116; 87186; 87206; 87220 ==

== ENCOUNTER → 2021-09-20 12:59 | Outpatient (CLI) | payer MEDICARE, BC, SELFPAY | PROVIDERS: PCP Internal Medicine Adolescent Medicine; Visit Provider Internal Medicine Pulmonary Disease | DX: J18.9 Pneumonia, unspecified organism (principal) | CPT/HCPCS: 87220 ==

== ENCOUNTER → 2021-10-09 09:58 | Outpatient (CLI) | payer MEDICARE, BC, SELFPAY | PROVIDERS: PCP Internal Medicine Adolescent Medicine; Visit Provider Internal Medicine Pulmonary Disease | DX: Z01.812 Encounter for preprocedural laboratory examination (principal); Z20.822 Contact with and (suspected) exposure to COVID-19; J06.9 Acute upper respiratory infection, unspecified | CPT/HCPCS: C9803; U0003; U0005 ==

== ENCOUNTER 2021-10-11 15:26 | Observation (INO) | payer MEDICARE, BC, SELFPAY ==
[2021-10-07 11:05] VITALS: BMI 33.1
[2021-10-11] VITALS (35 sets, daily range): BP systolic 110–164; BP diastolic 55–98; PULSE 60–116; RESP 12–20; TEMP 36.2–36.4; O2SAT 90–100; BMI 33.6
--- NOTE | 2021-10-11 10:25 | HMH.ANESCL ---
[facility] Anesthesia Checklist - Structural Data Admitted From: Home Planned Operative Procedure/s: bronchoscopy Consent for Planned Operative Procedure(s) Verified: Yes - Additional verifications Anesthesia Reactions: No Hx Blood Transfusions: No Blood Transfusion Reaction: No - Airway Assessment C-Spine Mobility Assessed: Yes TMJ Mobility Assessed: Yes Dentition: Poor Dentition - Neurological Assessment Level of Consciousness: Awake, Alert, Appropriate - Anesthesia Plan Anesthesia Risk discussed: Yes Anesthesia Plan: Verified ASA Class: III Anesthesia Type: General [facility] History I have reviewed the patient's past medical history: Yes Medical History: Reports:: Asthma, Chronic Obstructive Pulmonary Disease (COPD), Diabetes Mellitus Type 2, Gastroesophageal Reflux Disease(GERD), Hyperlipidemia, Hypertension, Kidney Stones Denies:: Cancer, Cerebrovascular Accident, Diabetes Mellitus Type 1, Internal Pacemaker, MRSA, Myocardial Infarction, Renal Disease, Renal Insufficiency, Seizures *Have you ever received a pneumonia vaccine?: Yes *Have you received a flu vaccine this season?: Yes Other Medical History: Reports: Arthritis, Fibromyalgia. Denies: Blood Transfusion Reaction Anesthesia experience/problems:: none Laterality Cases: Right: Lumpectomy, Bilateral: Tonsillectomy Other Surgeries: Yes: Appendectomy, Colonoscopy, Dilation and Curettage, Other. No: Pacemaker Amputation: No Fractures: No - *Social History Last grade of school completed: High school graduate Smoking Status: Never smoker Tobacco Type: cigarettes Alcohol Intake: never Substance Use Type: denies use *Occupational Status:: retired, disabled Housing: house *Travel in the last 8 weeks: None Family Hx:: Cancer, Diabetes, Heart Attack, Hypertension HAND DRAWER IN HELPER history: No HAND DRAWER IN HELPER history
--- NOTE | 2021-10-11 11:27 | XR_ITS ---
FINAL REPORT CLINICAL HISTORY: BRONCHOSCOPY 4:17 FLUORO TIME FINDINGS: Fluoroscopic guidance was provided for the operating services. A single spot film was provided. 4 minutes 17 seconds of fluoroscopy time was utilized. IMPRESSION: 4 minutes 17 seconds of fluoroscopy time. Reviewed, Interpreted and Dictated by Spencer Stoner III, MD Transcribed by Chapincito Espinosa Authenticated and [facility]
--- NOTE | 2021-10-11 11:41 | P.PN_ITS ---
[facility] Anesthesia Record Part I Intake, IV Amount: 800 Estimated blood loss (mL): 0 Urine output (mL): 0 Blood Pressure: 158/69 SaO2: 93 Pulse Rate: 77 Respiratory Rate: 16 Temperature: 97.1 F Patient is:: Drowsy, Stable Stable to PACU at:: 11:35
--- NOTE | 2021-10-11 11:47 | XR_ITS ---
FINAL REPORT CLINICAL HISTORY: post bronchoscopy COMPARISON: August 03, 2021 FINDINGS: PORTABLE CHEST A single portable view of the chest was obtained. The heart size and pulmonary vascularity are within normal limits. The mediastinum is within normal limits. There are worsening bilateral pulmonary opacities which are worrisome for worsening pneumonia. The bony thorax is intact. IMPRESSION: Findings worrisome for worsening pneumonia. Reviewed, Interpreted and Dictated by Spencer Stoner III, MD Transcribed by Stacy Chaney Authenticated and [facility]
--- NOTE | 2021-10-11 13:11 | P.PCN_ITS ---
- Procedure: Date: 10/11/21 Patient Date of :: 1945 Procedure Performed:: Bronchoscopy airway examination, alveolar lavage and transbronchial lung biopsy. Indications:: Atypical pneumonia, nonresolving pneumonia Performing Provider:: Jennifer Sierra MD Referring Provider:: Dr. Stack Sedation:: General anesthesia Procedure:: Bronchoscopy airway examination, alveolar lavage and transbronchial lung biopsy: Clean therapeutic bronchoscopy to ensure ET tube and airways were examined up to segmental bronchi. Copious amount of mucoid secretions were noted in the right upper lobe bronchus, right lower lobe and left lower lobe bronchus. No obvious evidence of mucous plugging noted. Diffuse airway inflammation was noted predominantly in the right upper lobe lower lobe and left lower lobe bronchus. The right middle lobe bronchus appeared to be narrowed however no obvious brown endobronchial lesions noted. Bronchoalveolar lavage was performed in the right upper lobe and left lower lobe with a total of 60 cc saline instilled on each lobes with return of 35 cc in the right upper lobe and 30 cc in the left lower lobe. Bronchoalveolar lavage specimens were sent separately with labelles as right upper lobe and left lower lobe. BAL samples were sent for bacterial fungal AFB stain cultures along with cytopathology. Transbronchial biopsies performed from in the right upper lobe and right lower lobe. A total of 7 biopsies were performed in the right upper lobe, 5 biopsy specimens were sent in formalin for cytopathologic examination. Remaining 2 biopsy specimens were sent one each in normal saline cups for AFB fungal bacterial stain and cultures. A total of 7 biopsies were performed in the right lower l obe, 5 biopsy specimens were sent in formalin for cytopathologic examination. Remaining 2 biopsy specimens were sent one each in normal saline cups for AFB fungal bacterial stain and cultures. Special request was made for the cytopathology to evaluate for AFB fungal staining for organisms in both biopsy and lavage specimens. Patient tolerated the procedure well. Estimated blood loss 5 cc Follow in clinic in 7 days Findings:: Please see the procedure note Recommendations:: Please see the procedure note Complications:: None Estimated blood obtained (mL): 5
--- NOTE | 2021-10-11 13:55 | SUR.PHASEI ---
Kristen Argueta CRNA at bedside. Wakened pt. Started wrecthing and vomiting. Says is dizzy. Meclizine 25mg po ordered per ARTIST'S MANAGER
--- NOTE | 2021-10-11 14:20 | ECG_ITS ---
APPROVED REPORT Exam: Resting ECG HR:115 bpm ECG Measurements Heart Rate 115 AXES QRSd 81 QRS 19 QT 360 T 57 QTc 428 Conclusion ATRIAL FIBRILLATION WITH RAPID VENTRICULAR RESPONSE LOW QRS VOLTAGE IN PRECORDIAL LEADS [QRS DEFLECTION < 1.0 mV IN CHEST LEADS] MODERATE ST DEPRESSION [0.05+ mV ST DEPRESSION] ABNORMAL ECG UNCONFIRMED REPORT Electronically signed by : James Stack MD 10/11/2021 16:42:41
--- NOTE | 2021-10-11 14:25 | SUR.PHASEI ---
ABG ordered per Dr. Sierra. Respiratory notified. Also informed Kristen Argueta CRNA of irregular heart rate. EKG ordered.
--- NOTE | 2021-10-11 14:29 | SUR.PHASEI ---
Respiratory therapy at bedside for EKG and ABG. EKG reading A-FIB. LOOM CHECKER aware. Cardiology ordered to consult.
[2021-10-11 14:35] LABS: ABG Base Excess -1.9 mmol/L (-2.4-2.3); ABG HCO3 23.9 mmhg (22.0-26.0); ABG Oxygen Saturation 89 % (90-100); ABG PCO2 45.4 mmhg (35.0-45.0); ABG PH 7.34 mmol/L (7.35-7.45); ABG PO2 60.7 mmhg (80-100); ABG TCO2 25.3 mmhg (23-27); Allen's Test Acceptable; Oxygen 21 %; Source Left Radial
--- NOTE | 2021-10-11 14:42 | ECG_ITS ---
APPROVED REPORT Exam: Resting ECG HR:71 bpm ECG Measurements Heart Rate 71 AXES [place] 211 P 55 QRSd 100 QRS 18 QT 436 T 46 QTc 459 Conclusion SINUS RHYTHM WITH FIRST DEGREE AV BLOCK LOW QRS VOLTAGE IN PRECORDIAL LEADS [QRS DEFLECTION < 1.0 mV IN CHEST LEADS] ABNORMAL ECG UNCONFIRMED REPORT Electronically signed by : James Stack MD 10/11/2021 16:42:35
--- NOTE | 2021-10-11 15:27 | PC.NURSE ---
at bedside to examine patient and review ABG results. Ordered for pt to be admitted for observation due to somnolence and pneumonia.
--- NOTE | 2021-10-11 15:33 | PC.NURSE ---
at bedside to examine pt and review ABG results. ordered for pt to be admitted for somnolence and worsening pneumonia.
--- NOTE | 2021-10-11 16:52 | HMH.PULMCON ---
*Admission Date: 10/11/21 *Reason for consult:: Acute hypoxic respiratory failure, minute acquired pneumonia *History of present illness: Ms. Massey is a 76-year-old pleasant female following in pulmonary clinic for atypical nonresolving pneumonia scheduled for an elective bronchoscopy underwent the procedure, complicated by continued lethargy altered mentation and oxygen requirements and the plan was made to admit the patient for observation overnight. [facility] History Medical History: Reports:: Asthma, Chronic Obstructive Pulmonary Disease (COPD), Diabetes Mellitus Type 2, Gastroesophageal Reflux Disease(GERD), Hyperlipidemia, Hypertension, Kidney Stones Denies:: Cancer, Cerebrovascular Accident, Diabetes Mellitus Type 1, Internal Pacemaker, MRSA, Myocardial Infarction, Renal Disease, Renal Insufficiency, Seizures *Have you ever received a pneumonia vaccine?: Yes *Have you received a flu vaccine this season?: Yes Other Medical History: Reports: Arthritis, Fibromyalgia. Denies: Blood Transfusion Reaction Anesthesia experience/problems:: none Laterality Cases: Right: Lumpectomy, Bilateral: Tonsillectomy Other Surgeries: Yes: Appendectomy, Colonoscopy, Dilation and Curettage, Other. No: Pacemaker Amputation: No Fractures: No - *Social History Last grade of school completed: High school graduate Smoking Status: Never smoker Tobacco Type: cigarettes Alcohol Intake: never Substance Use Type: denies use *Occupational Status:: retired, disabled Housing: house *Travel in the last 8 weeks: None Family Hx:: Cancer, Diabetes, Heart Attack, Hypertension DAIRY FEED WORKER history: No DAIRY FEED WORKER history ROS - Review of Systems Limited as patient during my examination still appear lethargic. Meds Home Medications Medication Instructions Recorded Confirmed Type atorvastatin 80 mg tablet 80 mg PO ONCE 05/30/17 10/11/21 History Memantine HCl 10 mg PO BID 02/02/19 10/11/21 History Omeprazole 20 mg PO DAILY 02/02/19 10/11/21 History Albuterol Sulfate [Albuterol 1.25 mg IH DAILY 11/11/19 10/11/21 History 0.042% 1.25mg/3mL neb] Aspirin [Aspirin 81mg EC Tab] 81 mg PO DAILY 11/11/19 10/11/21 History Cyclobenzaprine HCl 5 mg PO NEEDED PRN 11/11/19 10/11/21 History [Cyclobenzaprine 5mg Tab] Ergocalciferol (Vitamin D2) 50,000 unit PO DAILY 11/11/19 10/11/21 History [Vitamin D2] Meclizine HCl [Meclizine 25mg Tab] 25 mg PO DAILY 11/11/19 10/11/21 History cyanocobalamin (vitamin B-12) 1,000 mcg IM DAILY ml 04/22/20 10/11/21 History 1,000 mcg/mL injection solution Acetaminophen [Tylenol Extra 500 mg PO QID PRN 07/09/20 10/11/21 History Strength] Linaclotide [Linzess] 145 mcg PO HS 07/09/20 10/11/21 History Azelastine HCl [Azelastine Nasal 2 spray NS BID 10/07/21 10/11/21 History [place] 30mL Bottle] Fluticasone Propionate 2 spray NS BID 10/07/21 10/11/21 History hydrOXYzine pamoate [Vistaril] 25 mg PO DAILY 10/07/21 10/11/21 History Allergies Allergy/AdvReac Type Severity Reaction Status Date / Time honey Allergy Severe Anaphylaxis Verified 10/11/21 09:28 adhesive [ADHESIVE] Allergy Unknown Verified 10/11/21 09:28 ceftriaxone [From ROCEPHIN] Allergy Unknown Verified 10/11/21 09:28 ciprofloxacin [From CIPRO] Allergy Unknown Verified 10/11/21 09:28 codeine [CODEINE] Allergy Unknown Verified 10/11/21 09:28 gabapentin [GABAPENTIN] Allergy Unknown Verified 10/11/21 09:28 iodine [IODINE] Allergy Unknown Verified 10/11/21 09:28 latex [LATEX] Allergy Unknown Verified 10/11/21 09:28 meloxicam [MELOXICAM] Allergy Unknown Verified 10/11/21 09:28 meperidine [MEPERIDINE] Allergy Unknown Verified 10/11/21 09:28 oxytetracycline Allergy Unknown Verified 10/11/21 09:28 [OXYTETRACYCLINE] polymyxin B [POLYMYXIN B] Allergy Unknown Verified 10/11/21 09:28 rice [RICE] Allergy Unknown Verified 10/11/21 09:28 soy [SOY] Allergy Unknown Verified 10/11/21 09:28 venlafaxine [VENLAFAXINE] Allergy Unknown Verified 10/11/21 09:28 BEEF Allergy Unknown
[2021-10-11 17:46] LABS: POC Glucose,Bedside 138 (70-110)
[2021-10-11 19:48] LABS: POC Glucose,Bedside 106 (70-110)
--- NOTE | 2021-10-11 19:56 | PC.NURSE ---
spoke with md about patient coming to floor and vomiting. no orders noted. patient did request meclizine. md stated that patient could have zofran 4mg iv q6hr prn for nausea, tylenol 650mgpo q4hr prn for pain and a clear liquid diet. patient noted to have ronchi through out. md did not want meclizine because of possible drowsiness. no pain noted. some vertigo.
[2021-10-11 20:30] LABS: Coronavirus 19, PCR Not Detected (NotDetected); Influenza A, PCR Not Detected (NotDetected); Influenza B, PCR Not Detected (NotDetected)
[2021-10-12] VITALS: BP 112/56; PULSE 57; RESP 20; TEMP 36.7; O2SAT 92
[2021-10-12 04:00] VITALS: BP 117/59; PULSE 55; RESP 18; TEMP 36.8; O2SAT 93
--- NOTE | 2021-10-12 04:37 | PC.NURSE ---
PT HAS RESTED WELL THIS SHIFT. LUNG SOUNDS ARE DIMINISHED ON THE LEFT SIDE AND RONCHI IS NOTED TO THE RIGHT SIDE THROUGHOUT. SHE IS TOLERATING ROOM AIR WELL. SHE HAS HAD AN INTERMITTENT COUGH. NO C/O SHORTNESS OF BREATH. SHE AMBULATED TO THE BATHROOM WITH ONE ASSIST. SHE COMPLAINED OF A MILD HEADACHE AT THE BEGINNING OF SHIFT AND TYLENOL WAS ORDERED AND GIVEN PER MAY. PATIENT STATED IT PROVIDED ADEQUATE RELIEF. SHE IS TURNING IN BED INDEPENDENTLY. SHE HAS HAD NO C/O NAUSEA OR VOMITING THIS SHIFT. VSS.
[2021-10-12 04:58] VITALS: BMI 33.9
[2021-10-12 05:57] LABS: POC Glucose,Bedside 117 (70-110)
--- NOTE | 2021-10-12 07:25 | P.CONPHA_ITS ---
[facility] Pharmacy VTE Monitoring - Patient Demographics Admission date: 10/11/21 Report Date: 10/12/21 Time: 07:25 Allergies/Adverse Reactions: Patient Allergies honey Allergy (Severe, Verified 10/11/21:28) Anaphylaxis adhesive [ADHESIVE] Allergy (Unknown, Verified 10/11/21 09:28) ceftriaxone [From ROCEPHIN] Allergy (Unknown, Verified 10/11/21:28) ciprofloxacin [From CIPRO] Allergy (Unknown, Verified 10/11/21:28) codeine [CODEINE] Allergy (Unknown, Verified 10/11/21 09:28) gabapentin [GABAPENTIN] Allergy (Unknown, Verified 10/11/21:28) iodine [IODINE] Allergy (Unknown, Verified 10/11/21:28) latex [LATEX] Allergy (Unknown, Verified 10/11/21:28) meloxicam [MELOXICAM] Allergy (Unknown, Verified 10/11/21:28) meperidine [MEPERIDINE] Allergy (Unknown, Verified 10/11/21 09:28) oxytetracycline [OXYTETRACYCLINE] Allergy (Unknown, Verified 10/11/21 09:28) polymyxin B [POLYMYXIN B] Allergy (Unknown, Verified 10/11/21:28) rice [RICE] Allergy (Unknown, Verified 10/11/21:28) soy [SOY] Allergy (Unknown, Verified 10/11/21 09:28) venlafaxine [VENLAFAXINE] Allergy (Unknown, Verified 10/11/21 09:28) BEEF Allergy (Unknown, Uncoded 09/29/21 13:04) ITCHING FISH. Allergy (Unknown, Uncoded 09/29/21 13:04) UNK RXN-ON ALLERGY TESTING ONLY From EGGS (FOOD/DRUG) Allergy (Unknown, Uncoded 09/29/21 13:04) DIARRHEA/NAUSEA/VOMITING From MILK (FOOD/DRUG) Allergy (Unknown, Uncoded 09/29/21 13:04) DIARRHEA POTATOES Allergy (Unknown, Uncoded 09/29/21 13:04) BLOATING SEVELLA Allergy (Unknown, Uncoded 09/29/21 13:04) OUT OF IT VIOXX Allergy (Unknown, Uncoded 09/29/21 13:04) RASH/ITCHING WHEAT Allergy (Unknown, Uncoded 09/29/21 13:04) ITCHING IN MOUTH/NAUSEA Height: 1.73 m Weight: 101.514 kg - VTE Risk Was VTE Risk Assessment Performed: Yes VTE Score: 9 VTE Risk Level: Moderate Risk - Prophylaxis VTE Prophylaxis Ordered?: Yes Types of VTE Prophylaxis: TEDS Knee High Location of Applied Device: Bilateral Lower Extremeties
[2021-10-12 07:44] VITALS: BP 120/70; PULSE 60; RESP 18; TEMP 36.9; O2SAT 96
--- NOTE | 2021-10-12 08:00 | XR_ITS ---
FINAL REPORT CLINICAL HISTORY: PNM COMPARISON: 10/11/2021 FINDINGS: A single portable view of the chest was obtained. The heart size and pulmonary vascularity are within normal limits. The mediastinum is within normal limits. There are partially improved bilateral pulmonary opacities. The bony thorax is intact. IMPRESSION: Findings consistent with improved bilateral pneumonia or edema. Reviewed, Interpreted and Dictated by Spencer Stoner III, MD Transcribed by Stacy Chaney Authenticated and [facility]
--- NOTE | 2021-10-12 08:14 | HMH.HPDC ---
General - General Admission date:: 10/11/21 Discharge date: 10/12/21 *Admission Date: 10/11/21 *Chief complaint: Status post bronchoscopy with somnolence post procedure *History of present illness: Ms. Massey is a 76-year-old pleasant female following in pulmonary clinic for atypical nonresolving pneumonia scheduled for an elective bronchoscopy underwent the procedure, complicated by continued lethargy altered mentation and oxygen requirements and the plan was made to admit the patient for observation overnight. [facility] History Medical History: Reports:: Asthma, Chronic Obstructive Pulmonary Disease (COPD), Diabetes Mellitus Type 2, Gastroesophageal Reflux Disease(GERD), Hyperlipidemia, Hypertension, Kidney Stones Denies:: Cancer, Cerebrovascular Accident, Diabetes Mellitus Type 1, Internal Pacemaker, MRSA, Myocardial Infarction, Renal Disease, Renal Insufficiency, Seizures *Have you ever received a pneumonia vaccine?: Yes *Have you received a flu vaccine this season?: Yes Other Medical History: Reports: Arthritis, Fibromyalgia. Denies: Blood Transfusion Reaction Anesthesia experience/problems:: none Laterality Cases: Right: Lumpectomy, Bilateral: Tonsillectomy Other Surgeries: Yes: Appendectomy, Colonoscopy, Dilation and Curettage, Other. No: Pacemaker Amputation: No Fractures: No [facility] History I have reviewed the patient's past medical history: Yes Medical History: Reports:: Arrhythmia, Asthma, Atrial Fibrillation, Congestive Heart Failure, Chronic Obstructive Pulmonary Disease (COPD), Diabetes Mellitus Type 2, Gastroesophageal Reflux Disease(GERD), Hyperlipidemia, Hypertension, Kidney Stones Denies:: Cancer, Cerebrovascular Accident, Diabetes Mellitus Type 1, Internal Pacemaker, MRSA, Myocardial Infarction, Renal Disease, Renal Insufficiency, Seizures *Have you ever received a pneumonia vaccine?: Yes *Have you received a flu vaccine this season?: Yes Other Medical History: Reports: Arthritis, Cataracts, Fibromyalgia, Hypothyroidism, Sinus Problems. Denies: Blood Transfusion Reaction Anesthesia experience/problems:: none Laterality Cases: Right: Breast Biopsy, Lumpectomy, Bilateral: Tonsillectomy Other Surgeries: Yes: Appendectomy, Cholecystectomy, Colonoscopy, Dilation and Curettage, Other. No: Pacemaker Amputation: No Fractures: No - *Social History Last grade of school completed: Some college Smoking Status: Never smoker Tobacco Type: cigarettes Alcohol Intake: never Substance Use Type: denies use *Occupational Status:: retired Housing: assisted living facility *Travel in the last 8 weeks: None Family Hx:: Asthma, Cancer, Coronary Artery Disease, Diabetes, Heart Attack, Hyperlipidemia, Hypertension, Tuberculosis ANTHROPOLOGIST history: No ANTHROPOLOGIST history Review of Systems - Review of Systems Review of systems:: pertinent systems reviewed and negative unless documented below Exam Vital signs and Labs for Last 24 Hours: Temp Pulse Resp BP Pulse Ox 98.5 F 60 18 120/70 96 10/12/21 07:44 10/12/21 07:44 10/12/21 07:44 10/12/21 07:44 10/12/21 07:44 Laboratory Results - last 24 hr 10/11/21 09:35: POC Glucose 106 10/11/21 14:20: Specimen Source Left radial, O2 % 21, ABG pH 7.34 L, ABG pCO2 45.4 H, ABG pO2 60.7 L, ABG HCO3 23.9, ABG Total CO2 25.3, ABG O2 Saturation 89 L, ABG Base Excess -1.9, Jonathan Test Acceptable 10/11/21 17:38: POC Glucose 138 H 10/11/21 19:44: SARS-CoV-2 (PCR) Not detected, Influenza A Untype (PCR) Not detected, Influenza Type B (PCR) Not detected 10/12/21 05:49: POC Glucose 117 H I & O for Last 24 hours: Intake & Output 10/09/21 10/10/21 10/11/21 10/12/21 11:59 11:59 11:59 11:59 Intake Total 800 / 800 60 / 60 Balance 800 / 800 60 / 60 Weight 223 lb 12.8 oz Microbiology Reports for the Last 24 Hours: Microbiology 10/11/21 Unknown Bronchial Washings - Left Lower Lobe Gram Stain - Final 10/11/21 Unknown Bronchial Washings - Right Upper Lobe Gram Stain - Final 10/11/21 Unknow
--- NOTE | 2021-10-12 10:24 | HMH.PULMPN ---
Internal Medicine - PN: Subj *Date: 10/12/21 *Time: 10:24 Interval history: No acute respiratory vents overnight. Patient admits improvement in her respiratory status, mentation and coughing. Exam - Constitutional Constitutional:: Present: no acute distress - HENMT Exam HENMT: Present: normocephalic - Eye Exam Eyes:: Present: normal appearance both eyes and related structures - Neck Exam Neck:: Present: normal visual inspection - Respiratory Exam Respiratory:: Present: able to speak in complete sentences, no respiratory distress, normal respiratory effort, rhonchi. Absent: decreased breath sounds, wheezing - Cardiovascular Exam Cardiac:: Present: S1, S2 - GI Exam GI:: Present: soft - Skin Exam Skin: Present: warm, no rash - Neurological Exam Neurological: Present: alert, awake - Extremities Exam Extremities: Present: no cyanosis, no clubbing, no edema Assessment and Plan (1) Status post bronchoscopy with biopsy Status: Acute Category: Surgical Code(s): Z98.890 - Other specified postprocedural states - Assessment and plan all Dx Assessment and Plan for all problems:: #Community-acquired pneumonia: 76-year-old history of atypical pneumonia presented for elective bronchoscopy. Patient appears to be needing prolonged duration to recover from anesthesia. She continued to be lethargic and needing oxygen requirements. Repeat ABG showed mild hypercarbic respiratory failure. Chest x-ray postprocedure reported to be concerning for worsening airspace disease, more likely from the lavage performed. Afebrile. Interval update: Patient admits continued improvement in symptoms. On room air saturation maintained at 90% and above. Chest clear to auscultate except for few rhonchi in bilateral lower lung ravi. No wheezing. Chest x-ray continued to improvement Plan: -Augmentin 500mg , 3 times daily x 5 days -Follow with bronchoscopy results. -Follow in pulmonary clinic in 5 to 7 days for bronchoscopy results. #Thank you for involving pulmonary in this patient care. We will see the patient in pulmonary clinic in 5 to 7 days.
--- NOTE | 2021-10-12 10:34 | PC.NURSE ---
report called at 1005. [facility] needs weight bearing status listed by docters within patient note. this has been relayed to stefanie gates.
--- NOTE | 2021-10-12 16:33 | HMH.ANESII ---
[facility] Anesthesia Record Part II Discharge Time: 17:45 Destination: Medical Surgical Department PACU nurse assessment reviewed?: Yes Patient Condition:: Fair Anesthesia Complications:: None Swallowing reflex intact?: Yes Cyanosis?: No Blood Pressure: 121/74 Pulse Rate: 63 Temperature: 97.2 F Mental Status: Alert & Oriented Pain level:: 0 Nausea and/or vomitting:: None Intake, IV Amount: 0 Comments:: Pt was very lethargic in PACU, which she stated is common for her after anesthesia. Pt was admitted for observation d/t lethargy, somnolence, and low oxygen saturations. Pt also noted to go into Afib during PACU stay, but converted back to NSR after around 15 minutes.
[2021-10-12 16:36] VITALS: BP 121/74; PULSE 63; TEMP 36.2
[2021-10-13 12:29] LABS: POC Glucose,Bedside 159 (70-110)
--- NOTE | 2021-10-13 13:17 | CARE MANAGER ---
Spoke with patient related to discharge from hospital. She states she is having some dizziness, but that she has Meniere's disease so she is used to it. She is aware of follow up appointment. Denies any questions or concerns at this time. YANIRA Neal
== END 2021-10-12 11:26 | disposition home or self-care (01) ==
LOC: 2ND 15:29
PROVIDERS: Admitting Provider Internal Medicine Adolescent Medicine; PCP Internal Medicine Adolescent Medicine; Referring Provider Internal Medicine Pulmonary Disease; Visit Provider Internal Medicine Adolescent Medicine
DX: J18.9 Pneumonia, unspecified organism (principal); J44.9 Chronic obstructive pulmonary disease, unspecified; K21.9 Gastro-esophageal reflux disease without esophagitis; I11.0 Hypertensive heart disease with heart failure; I50.9 Heart failure, unspecified; E78.5 Hyperlipidemia, unspecified; Z88.8 Allergy status to other drugs, medicaments and biological substances; Z79.899 Other long term (current) drug therapy; Z20.822 Contact with and (suspected) exposure to COVID-19
CPT/HCPCS: 31624; 31628; 31632; G0378; G0379; 71045; 76000; 82803; 82962; 87070; 87077; 87102; 87116; 87186; 87205; 87206; 88112; 88305; 88312; 88342; 89051; 93005; 94640; C9803; J2405; U0003; U0005

== ENCOUNTER → 2021-10-21 12:16 | Outpatient (CLI) | payer MEDICARE, BC, SELFPAY ==
[2021-10-21 13:15] LABS: Blood Urea Nitrogen 16 mg/dl (7-17); Estimated Glomerular Filt Rate 82 ml/min (>60); GFR (African American) 99 ML/MIN (>60)
== END ==
PROVIDERS: PCP Internal Medicine Adolescent Medicine; Visit Provider Internal Medicine Pulmonary Disease
DX: Z01.812 Encounter for preprocedural laboratory examination (principal)
CPT/HCPCS: 36415; 82565; 84520

== ENCOUNTER → 2021-10-22 08:43 | Outpatient (CLI) | payer MEDICARE, BC, SELFPAY ==
--- NOTE | 2021-10-22 08:43 | CT_ITS ---
FINAL REPORT TECHNIQUE: Thin section axial images were obtained through the paranasal sinuses without contrast. CLINICAL HISTORY: Recurrent Sinusitis COMPARISON: CT head dated December 25, 2019 FINDINGS: There is mild mucoperiosteal thickening in the sphenoid sinus, worse as compared to prior head CT. There are no air-fluid levels. The bilateral ethmoid infundibulum are patent. The mastoid air cells are clear. The nasal septum is deviated to the right. There is no acute osseous abnormality. Remaining soft tissues are within normal limits. IMPRESSION: Mild chronic sinusitis of the sphenoid sinus. Right nasal septal deviation. Reviewed, Interpreted and Dictated by Ivis Ledesma MD Transcribed by Chapincito Espinosa Authenticated and [facility]
== END ==
PROVIDERS: PCP Internal Medicine Adolescent Medicine; Visit Provider Internal Medicine Pulmonary Disease
DX: J32.9 Chronic sinusitis, unspecified (principal)
CPT/HCPCS: 70486

== ENCOUNTER → 2021-11-15 14:46 | Outpatient (CLI) | payer MEDICARE, BC, SELFPAY ==
[2021-11-15 16:39] LABS: Basophils # 0.1 K/mm3 (0-0.2); Basophils % 0.8 % (0.1-2.0); Eosinophils # 0.3 K/mm3 (0.0-0.4); Eosinophils % 3.8 % (0.1-12.0); Hematocrit 48.4 % (37.0-47.0); Hemoglobin 14.6 g/dL (12.2-16.2); Lymphocytes # 1.7 K/mm3 (0.7-4.5); Lymphocytes % 23.2 % (10-50); Mean Corpuscular HGB Conc 30.2 g/dL (31.8-35.4); Mean Corpuscular Hemoglobin 27.5 pg (27.0-31.2); Mean Corpuscular Volume 91.2 fl (81-99); Mean Platelet Volume 8.8 fl (7.4-10.4); Monocytes # 0.5 K/mm3 (0.1-1.0); Monocytes % 6.8 % (1.7-9.3); Neutrophils # 4.8 K/mm3 (1.8-7.8); Neutrophils % 65.2 % (37.0-80.0); Platelet Count 330 K/mm3 (142-424); Red Cell Distribution Width 13.5 % (11.5-17.5); White Blood Count 7.3 K/mm3 (4.8-10.8)
[2021-11-15 17:03] LABS: Erythrocyte Sedimentation Rate 6 mm/hr (0-30)
[2021-11-15 17:26] LABS: Alanine Aminotransferase 17 U/L (12-78); Albumin Level 3.9 g/dl (3.5-5.0); Albumin/Globulin Ratio 1.3 (1.1-1.8); Alkaline Phosphatase 150 U/L (38-126); Anion Gap 9.8 mEq/L (5-15); Aspartate Amino Transferase 29 U/L (14-36); Bilirubin,Total 0.7 mg/dl (0.2-1.3); Blood Urea Nitrogen 15 mg/dl (7-17); Calcium 9.4 mg/dl (8.4-10.2); Carbon Dioxide 27 mmol/L (22.0-30.0); Chloride 109 mmol/L (98-107); Estimated Glomerular Filt Rate 82 ml/min (>60); GFR (African American) 99 ML/MIN (>60); Globulin 3.1 g/dL (1.3-3.2); Glucose 119 mg/dl (74-100); Potassium 3.8 mmoL/L (3.5-5.1); Sodium 142 mmol/L (136-145)
[2021-11-15 17:31] LABS: C-Reactive Protein 1.4 mg/L (0-4)
== END ==
PROVIDERS: PCP Internal Medicine Adolescent Medicine; Visit Provider Nurse Practitioner Family
DX: M79.605 Pain in left leg (principal); M79.89 Other specified soft tissue disorders; R50.9 Fever, unspecified
CPT/HCPCS: 36415; 80053; 85025; 85651; 86140

== ENCOUNTER → 2021-11-16 12:58 | Outpatient (CLI) | payer MEDICARE, BC, SELFPAY ==
--- NOTE | 2021-11-16 | CA_ITS ---
FINAL REPORT TECHNIQUE: extremity venous duplex was performed with augmentation and compression. CLINICAL HISTORY: .LEFT LATERAL THIGH PAIN AND EDEMA. MULTIPLE CLUSTERS OF SPIDER VARICOSITIES IN THIS AREA. Fibromyalgia, pt very tender to touch FINDINGS: Proper flow is seen throughout the deep venous system. There is no evidence of deep venous thrombosis. IMPRESSION: No evidence of left lower extremity DVT. Reviewed, Interpreted and Dictated by Kenn Ortiz MD Transcribed by Eunice Pedro Authenticated and . [facility]
== END ==
PROVIDERS: PCP Internal Medicine Adolescent Medicine; Visit Provider Nurse Practitioner Family
DX: M79.662 Pain in left lower leg (principal); M79.89 Other specified soft tissue disorders
CPT/HCPCS: 93971

== ENCOUNTER 2022-02-03 10:00 | Outpatient (RCR) | payer MEDICARE, BC, SELFPAY ==
--- NOTE | 2021-12-14 14:30 | HMH.PTOPWND ---
Rehab Outpt Wound Evaluation Rehab OP Wound Evaluation Start: 12/14/21 13:06 Freq: Status: Active Protocol: Document 12/14/21 14:23 PHODAVIN (Rec: 12/14/21 14:30 PHORNE [id number]) E-signed By Pritesh Benavides PT Subjective/History History History Pt is 76 yowf who presents with c/o B LE edema, worse on the L side, x ~ 6 mos. She reports multiple problems with the L LE including a fall ~ 1 yr ago with resulting lateral knee hematoma and 2 bouts of cellulitis. SHe reports increased edema and pain now beginning in the L thigh as well. She also has hx of IBS and abdominal edema, asthma, a -fib, CHF, COPD, HL, HTN, DM- II, CCY, appy, tonsilectomy, R breast lumpectomy, and kidney stones. Subjective Subjective Currently she reports pain is 4/10. TTP 2/4 in B lower leg and L thigh. 2+ pitting edema noted to B lower legs. Multiple superficial varicosities noted throughout B LE as well. Lymphedema Eval Classification of Lymphedema Secondary Lymphedema Yes Stemmer's sign Stemmer's Sign yes Skin Changes Dry Skin Yes Skin Folds Yes Redness Yes Discoloration of Skin Yes Other Changes Yes Pain Scale Pain Scale (0-10) 4 Affected Extremities Areas Affected by Lymphedema/Edema Abdomen,Right Lower Extremity, Left Lower Extremity Manual Lymphatic Drainage Treatment Area MLD Treatment Area Abdomen,Right Lower Extremity, Left Lower Extremity Wound Problems/Impairments Impairments Problems/Impairmments Impaired Endurance,Impaired Walking,Impaired Standing, Impaired Recreational Activities,Increased Edema, Lymphedema Present,Subjective C/O Pain,Impaired Self Care/ Self Management Prognosis Rehab Potential Good Clinical Impression Consistent with Diagnosis Yes Short Term Goals Number of Weeks 2 Decreased Palpation Tenderness Yes: 1/4 B
--- NOTE | 2022-01-14 10:41 | HMH.RHREAS ---
Rehab Reassessment Rehab OP Re-assessment Start: 01/14/22 10:34 Freq: Status: Active Protocol: Document 01/14/22 10:36 WELLINGTON (Rec: 01/14/22 10:41 WELLINGTON [id number]) E-signed By Pritesh Benavides, PT Rehab Re-assessment Subjective Subjective Pt reports less pain overall, 04/05. I'm sleeping a lot better now too. Objective Objective Notes Circumferential measurements: R LE -14.6 cm total since IE. L LE -11.5 cm total since IE . Palpation tenderness: 0/4 in B lower legs this date. Assessment Progress Assessment Progressing as Expected Assessment Notes Pt has shown significant decrease in B LE edema. Very mild pitting edema remains and much less tenderness to palpation noted. Pt continues to improve steadily. Patient goals met ST,2,3,4 Goals Not Met LT,2,3,4,5 Revised Goals none Plan Plan Continue per initial POC. Wean to 1 x/wk as able. Frequency of Therapy 1-2 x/wk Duration of therapy 4 wks Time and Billing Re-Eval Time 14 Re-Eval Billing Units 1 PHYSICIAN CERTIFICATION: I certify the specified therapy services for Charley Massey are required, authorized, and reviewed every 30 days.
== END 2022-02-03 10:05 | disposition home or self-care (01) ==
LOC: PT 10:00
PROVIDERS: PCP Internal Medicine Adolescent Medicine; Visit Provider Internal Medicine Adolescent Medicine
DX: I89.0 Lymphedema, not elsewhere classified (principal)
CPT/HCPCS: 97140; 97162; 97164

== ENCOUNTER → 2022-05-05 14:46 | Outpatient (CLI) | payer MEDICARE, BC, SELFPAY ==
--- NOTE | 2022-05-05 14:54 | XR_ITS ---
FINAL REPORT TECHNIQUE: Chest PA & Lateral CLINICAL HISTORY: SOB. cough and chest tightness for 2 months. COMPARISON: 10/12/2021 FINDINGS: 2 views of the chest were performed. The heart size is normal. The mediastinum is within normal limits. There are mild chronic changes in both lungs. Linear density at the bases has improved. There are no pleural effusions. There is no pneumothorax. The bony thorax appears intact. IMPRESSION: A definite acute abnormality. Reviewed, Interpreted and Dictated by Kenn Ortiz MD Transcribed by Stacy Chaney Authenticated and . [facility]
== END ==
PROVIDERS: PCP Internal Medicine Adolescent Medicine; Visit Provider Nurse Practitioner Family
DX: R06.02 Shortness of breath (principal)
CPT/HCPCS: 71046

== ENCOUNTER 2022-06-18 12:36 | Emergency (ER) | payer MEDICARE, BC, SELFPAY ==
[2022-06-18 12:38] VITALS: BP 116/53; PULSE 69; RESP 17; TEMP 36.8; O2SAT 94; BMI 33.4
--- NOTE | 2022-06-18 12:51 | XR_ITS ---
PROCEDURE INFORMATION: Exam: XR Chest Exam date and time: 06/18/2022 1:38 PM Age: 77 years old Clinical indication: Condition or disease; Other: Concern for pneumonia TECHNIQUE: Imaging protocol: Radiologic exam of the chest. Views: 1 view. COMPARISON: CR XR CHEST 2V 05/05/2022 3:00 PM FINDINGS: Lungs: There is an indistinct bandlike density left lung base more apparent on the current study likely representing either subsegmental atelectasis or small pneumonic infiltrate. Remaining lung raiv are clear. Pleural spaces: Unremarkable. No pleural effusion. No pneumothorax. Heart/Mediastinum: Cardiac silhouette is borderline enlarged. Bones/joints: Unremarkable for age. IMPRESSION: Nonspecific bandlike density left lower lobe likely representing subsegmental atelectasis or pneumonia.
--- NOTE | 2022-06-18 12:51 | CT_ITS ---
PROCEDURE INFORMATION: Exam: CT Abdomen And Pelvis Without Contrast Exam date and time: 06/18/2022 2:05 PM Age: 77 years old Clinical indication: Abdominal pain; Localized; Right lower quadrant (rlq); Additional info: Rlq pain-- PT allergic to contrast unable to have TECHNIQUE: Imaging protocol: Computed tomography of the abdomen and pelvis without contrast. Radiation optimization: All CT scans at this facility use at least one of these dose optimization techniques: automated exposure control; mA and/or kV adjustment per patient size (includes targeted exams where dose is matched to clinical indication); or iterative reconstruction. REPORTING DATA: Count of CT and Cardiac NM exams in prior 12 months: This patient has received 2 known CTs and 0 known cardiac nuclear medicine studies in the 12 months prior to the current study. COMPARISON: CT ABDOMEN PELVIS WO CON 03/23/2020 12:59 PM FINDINGS: Lungs: There are scattered nodular bandlike consolidative densities posterior at the lung bases progressed from previous exam likely secondary to subsegmental atelectasis. There is patchy area of accentuated centrilobular opacities right mid lung zone likely secondary to bronchiolitis. There are chronic granulomatous calcifications within the right hilum partially visualized. Chronic granulomatous calcifications within the liver unchanged. Chronic granulomatous calcifications within the spleen unchanged. Liver: Normal. No mass. Gallbladder and bile ducts: Gallbladder has been removed. Bile ducts are not appreciably dilated. Pancreas: Unremarkable. Main pancreatic duct is not significantly dilated. Spleen: Normal. No splenomegaly. Adrenal glands: Normal. No mass. Kidneys and ureters: Small nonobstructing renal stones more numerous on the left. No hydronephrosis. Stomach and bowel: 4 cm duodenal diverticulum arising from the 4th portion duodenal sweep unchanged. There are multiple diverticuli throughout the distal portion of the large bowel without evidence of diverticulitis. Appendix: No evidence of appendicitis. Intraperitoneal space: Unremarkable. No free air. No significant fluid collection. Vasculature: Scattered atherosclerotic changes of the abdominal aorta and iliac vessels. No aortic aneurysm. Lymph nodes: Multiple small mesenteric lymph nodes within the mid abdomen likely benign by size criteria but noted to have increased in size and number from prior study. Urinary bladder: Unremarkable as visualized. Reproductive: Unremarkable as visualized. Bones/joints: Unremarkable. No acute fracture. Soft tissues: Mild diastasis of the abdominal wall with small superimposed fat containing umbilical hernia.. IMPRESSION: 1. No acute findings within the abdomen or pelvis. 2. Progressive bibasilar consolidation in part secondary to subsegmental atelectasis with superimposed pneumonia to be excluded. 3. Mild mesenteric lymphadenopathy mid abdomen likely benign by size criteria but noted to have progressed from previous exam. Recommend a repeat CT exam in 6 months for continued surveillance. 4. Additional nonemergent findings as above.
[2022-06-18 12:52] VITALS: BP 116/53; PULSE 74; RESP 18; O2SAT 96
--- NOTE | 2022-06-18 12:52 | HMH.EDGENADL ---
Discharge Plan Disposition Patient Disposition: Home, Self-Care Condition: Fair Prescriptions Prescriptions: New ondansetron [ondansetron] 4 mg tablet,disintegrating 4 mg PO TIDP PRN (Reason: Nausea) Qty: 10 0RF amoxicillin-pot clavulanate 875-125 mg tablet 1 tab PO BID 5 Days Qty: 10 0RF azithromycin 500 mg tablet See Rx Instructions .ROUTE .COMPLEX Qty: 9 0RF Rx Instructions: For 250 mg dose pack: take 500 mg today (day 1), then 250 mg for 4 days (days 2-5) No Action atorvastatin 80 mg tablet 80 mg PO ONCE cyanocobalamin (vitamin B-12) 1,000 mcg/mL solution 1,000 mcg IM DAILY Label Comments: INJECT 1 ML INTRAMUSCULARLY ONCE A WEEK DIRECTED FOR B12 LEVEL azelastine 137 mcg (0.1 %) aerosol,spray 2 spray NS BID 90 Days Qty: 30 3RF Rx Instructions: administer into each nostril fluticasone propionate 50 mcg/actuation spray,suspension 2 spray NS DAILY 90 Days Qty: 15.8 3RF Rx Instructions: administer into each nostril montelukast 10 mg tablet 10 mg PO DAILY 90 Days Qty: 90 3RF donepezil 5 mg tablet 5 mg PO HS Label Comments: TAKE ONE TABLET BY MOUTH EVERY DAY AT BEDTIME omeprazole 40 mg capsule,delayed release(DR/EC) 40 mg PO DAILY lisinopril 5 mg tablet 5 mg PO DAILY furosemide 20 mg tablet 20 mg PO DAILY cholecalciferol (vitamin D3) 25 mcg (1,000 unit) capsule 25 mcg PO DAILY Label Comments: TAKE ONE CAPSULE BY MOUTH EVERY DAY pregabalin 50 mg capsule 50 mg PO HS Label Comments: TAKE ONE CAPSULE BY MOUTH EVERY DAY IN THE EVENING MAY CAUSE DROWSINESS Linzess 290 mcg capsule 290 mcg PO DAILY Sucraid 8,500 unit/mL solution 2 ml PO meclizine 25 mg tablet 25 mg PO TID albuterol sulfate 90 mcg/actuation HFA aerosol inhaler 2 inh inhalation Q6H PRN (Reason: shortness of breath or wheezing) 90 Days Qty: 8.5 3RF hydroxyzine pamoate 25 MG capsule 25 mg PO DAILY memantine 10 MG tablet 10 mg PO BID aspirin 81 MG tablet,delayed release (DR/EC) 81 mg PO DAILY ergocalciferol (vitamin D2) 50,000 UNIT capsule 50,000 unit PO DAILY cyclobenzaprine 5 MG tablet 5 mg PO NEEDED PRN (Reason: muscles) acetaminophen 500 MG tablet 500 mg PO QID PRN (Reason: PAIN) Referrals Follow up/Referrals: Gail Callahan APRN [Primary Care Provider] - See instructions Clinical Impressions Clinical Impression: Pneumonia Instructions Patient Instructions: DI for Pneumonia -- Adult Discharge ED Provider: Felipe Hull General Adult HPI General Chief complaint: Abdominal Pain Stated complaint: cough,vomiting,nausea Time Seen by Provider: 06/18/22 12:52 History of Present Illness HPI narrative: Patient is a 77-year-old female with past medical history of diabetes, pneumonia who presents with concern for nausea and vomiting. She says that she has been sick over the last few days with a viral illness. This has been being managed by her PCP but she recommended that she come in today for concern for dehydration. She says that she has not been able to drink much recently due to the nausea and was having diarrhea previously. She has now started to get constipated over the last couple days. She says that she does have some sputum production that is yellow. Denies any fever or chills. She also endorses some abdominal pain that is worse on the right lower quadrant. Related Data Home Medications Medication Instructions Recorded Confirmed atorvastatin 80 mg tablet 80 mg PO ONCE Cholesterol 05/30/17 05/04/22 memantine 10 mg tablet 10 mg PO BID MEMORY 02/02/19 05/04/22 aspirin 81 mg tablet,delayed 81 mg PO DAILY heart health 11/11/19 05/04/22 release cyclobenzaprine 5 mg tablet 5 mg PO NEEDED PRN muscles 11/11/19 05/04/22 ergocalciferol (vitamin D2) 1,250 50,000 unit PO DAILY Supplement 11/11/19 05/04/22 mcg (50,000 unit) capsule
[2022-06-18 13:00] VITALS: BP 109/59; PULSE 67; RESP 18; O2SAT 96
[2022-06-18 13:32] VITALS: BP 126/58; PULSE 65; RESP 19; O2SAT 95
[2022-06-18 13:32] LABS: Chloride 104 mmol/L (98-107); Potassium 3.1 mmoL/L (3.5-5.1); Sodium 141 mmol/L (136-145)
[2022-06-18 13:33] LABS: Basophils # 0.1 K/mm3 (0-0.2); Eosinophils # 0.4 K/mm3 (0.0-0.4); Eosinophils % 8.5 % (0.1-12.0); Hematocrit 44.6 % (37.0-47.0); Hemoglobin 14.2 g/dL (12.2-16.2); Lymphocytes # 1.2 K/mm3 (0.7-4.5); Lymphocytes % 27.1 % (10-50); Mean Corpuscular HGB Conc 31.9 g/dL (31.8-35.4); Mean Corpuscular Hemoglobin 26.7 pg (27.0-31.2); Mean Corpuscular Volume 83.8 fl (81-99); Mean Platelet Volume 8.5 fl (7.4-10.4); Monocytes # 0.5 K/mm3 (0.1-1.0); Monocytes % 11.8 % (1.7-9.3); Neutrophils # 2.2 K/mm3 (1.8-7.8); Neutrophils % 50.6 % (37.0-80.0); Platelet Count 290 K/mm3 (142-424); Red Blood Count 5.32 M/mm3 (4.20-5.40); Red Cell Distribution Width 13.5 % (11.5-17.5); White Blood Count 4.3 K/mm3 (4.8-10.8)
[2022-06-18 13:34] LABS: Alanine Aminotransferase 17 U/L (12-78); Alkaline Phosphatase 113 U/L (38-126); Aspartate Amino Transferase 27 U/L (14-36); Bilirubin,Total 0.5 mg/dl (0.2-1.3); Blood Urea Nitrogen 15 mg/dl (7-17); Creatinine Clearance Estimated 75 mL/min (50-200); Estimated Glomerular Filt Rate 81 ml/min (>60); GFR (African American) 98 ML/MIN (>60)
[2022-06-18 13:35] LABS: Albumin Level 3.4 g/dl (3.5-5.0); Albumin/Globulin Ratio 1.1 (1.1-1.8); Anion Gap 7.1 mEq/L (5-15); Calcium 8.7 mg/dl (8.4-10.2); Carbon Dioxide 33 mmol/L (22.0-30.0); Globulin 3.1 g/dL (1.3-3.2); Glucose 133 mg/dl (74-100); Lipase 56 U/L (23-300); Total Protein,Serum 6.5 g/dl (6.3-8.2)
[2022-06-18 13:41] LABS: C-Reactive Protein 9.5 mg/L (0-4); Lactic Acid 1.4 mmol/L (0.7-2.1)
[2022-06-18 13:45] VITALS: PULSE 65; O2SAT 94
--- NOTE | 2022-06-18 14:00 | PC.NURSE ---
Patient heading to CT via stretcher with extractions technologist
[2022-06-18 14:09] LABS: Erythrocyte Sedimentation Rate 13 mm/hr (0-30)
--- NOTE | 2022-06-18 14:15 | PC.NURSE ---
pt return from CT
--- NOTE | 2022-06-18 14:18 | PC.NURSE ---
Patient arrived back from CT via stretcher with redIT, assessed patient's nausea. Patient stated the medication did help. Call light within reach
[2022-06-18 14:48] LABS: Microscopic, Urine URINE MICROSCOPIC (MICROSCOPIC)
[2022-06-18 14:59] LABS: Appearance,Urine CLEAR (Clear); Bilirubin,Urine Negative (Negative); Blood, Urine Negative (Negative); Color,Urine YELLOW (Yellow); Glucose,Urine (UA) Negative (Negative); Ketones,Urine Negative (Negative); Leukocyte Esterase,Urine 1+ (Negative); Nitrate,Urine Negative (Negative); Protein,Urine Negative (Negative); Specific Gravity, Urine 1.015 (1.005-1.030)
[2022-06-18 15:15] LABS: Bacteria,Urine Trace /lpf; RBC,Urine Occasional #/hpf (0-3)
[2022-06-18 15:16] LABS: Calcium Oxalate Crystals,Urine Trace /lpf
[2022-06-18 15:36] VITALS: BP 145/79; PULSE 72; RESP 18; TEMP 36.8; O2SAT 96
== END 2022-06-18 15:36 | disposition home or self-care (01) ==
PROVIDERS: Emergency Provider Student in an Organized Health Care Education/Training Program; PCP Nurse Practitioner Family
DX: R05.9 Cough, unspecified (principal); R11.2 Nausea with vomiting, unspecified; R10.31 Right lower quadrant pain
CPT/HCPCS: 71045; 74176; 80053; 81001; 83605; 83690; 85025; 85651; 86140; 87086; 96360; 96374; 99284; 99285; J2405

== ENCOUNTER → 2022-09-07 14:36 | Outpatient (POV) | payer MEDICARE, BC, SELFPAY | PROVIDERS: Visit Provider Specialist/Technologist | DX: Z00.00 Encounter for general adult medical examination without abnormal findings (principal) ==

== ENCOUNTER 2022-11-07 11:00 | Outpatient (RCR) | payer MEDICARE, BC, SELFPAY ==
--- NOTE | 2022-09-29 15:28 | HMH.PTOPWND ---
Rehab Outpt Wound Evaluation Rehab OP Wound Evaluation Start: 09/29/22 14:43 Freq: Status: Active Protocol: Document 09/29/22 15:17 PHODAVIN (Rec: 09/29/22 15:27 PHORNE [id number]) E-signed By Pritesh Benavides, PT Subjective/History History History This is the initial PT eval for Charley Massey, 77 yowf who presents with c/o B LE edema for several years. She reports now she also feels she is holding fluid in her abdomen. She also reports wrosening pain intermittently in B LE. She reports she feels this edema is effecting her ambulation ability. She has PMH of a-fib, CHF, COPD, HTN, HLD, DM, Meniere's disease, IBS, fibromyalgia. Subjective Subjective Currently no pitting edema noted in B LE, but mild fibrotiuc edema noted. 2/4 TTP noted to B lower legs. Pt c/o 4/10 pain in B lower LE, L worse than R usually. Lymphedema Eval Classification of Lymphedema Secondary Lymphedema Yes Stemmer's sign Stemmer's Sign no Stage of Lymphedema Lymphedema stages Stage II (Pitting edema, increased fibrosis w/ decreased pitting) Skin Changes Dry Skin Yes Taut, Shiny Skin Yes Other Changes Yes Pain Scale Pain Scale (0-10) 4 Affected Extremities Areas Affected by Lymphedema/Edema Abdomen,Right Lower Extremity, Left Lower Extremity Manual Lymphatic Drainage Treatment Area MLD Treatment Area Abdomen,Right Lower Extremity, Left Lower Extremity Wound Problems/Impairments Impairments Problems/Impairmments Palpation Tenderness,Impaired Endurance,Impaired Gait Pattern,Impaired Walking, Impaired Standing,Impaired Stepping on Uneven Surface, Impaired Recreational Activities,Increased Edema, Lymphedema Present,Subjective C/O Pain,Impaired Self Care/ Self Management Prognosis Rehab Potential Good Clinical Impression Consistent with Diagnosis Ye
--- NOTE | 2022-11-07 15:13 | HMH.RHREAS ---
Rehab Reassessment Rehab OP Re-assessment Start: 09/29/22 14:43 Freq: Status: Active Protocol: Document 11/07/22 15:07 WELLINGTON (Rec: 11/07/22 15:13 WELLINGTON [id number]) E-signed By rPitesh Benavides, PT Rehab Re-assessment Subjective Subjective Pt reports she feels her swelling is much better at this point. I didn't come to very many visits though. I had a bad case of meniere's disease and I couldn't do much of anything for anout 2 weeks . Objective Objective Notes Pain in B LE 0 this date. TTP: 0/4 B LE this date. Circumferential measurements: R LE total is 145.4 cm which is -10.2 cm since initial eval . L LE total is 161.3 cm which is -3.2 cm since initial eval. Assessment Progress Assessment Progressing as Expected Assessment Notes Pt has shown significant progress with reduced edema, reducced pain, and less tenderness to palpation. She is much more able to perform her daily household tasks with reduced edema and heaviness in the legs B. She continues to need skilled therapy to return to full prior level of function. Patient goals met ST,2,3 LT,2,3,4,[address] LT Plan Plan Continue per initial POC. Frequency of Therapy 1-2 x/wk Duration of therapy 3-4 wks Time and Billing Re-Eval Time 14 Re-Eval Billing Units 1 PHYSICIAN CERTIFICATION: I certify the specified therapy services for Charley Massey are required, authorized, and reviewed every 30 days.
== END 2022-11-07 12:00 | disposition home or self-care (01) ==
LOC: PT 11:00
PROVIDERS: Visit Provider Internal Medicine Adolescent Medicine
DX: I89.0 Lymphedema, not elsewhere classified (principal)
CPT/HCPCS: 97140; 97163; 97164

== ENCOUNTER → 2022-11-07 17:20 | Outpatient (CLI) | payer MEDICARE, BC, SELFPAY | PROVIDERS: Visit Provider Podiatrist | DX: I89.0 Lymphedema, not elsewhere classified (principal) ==

== ENCOUNTER → 2022-11-29 11:45 | Outpatient (CLI) | payer MEDICARE, BC, SELFPAY ==
--- NOTE | 2022-11-29 11:51 | XR_ITS ---
FINAL REPORT CLINICAL HISTORY: ACUTE COUGH AND FRVER COMPARISON: May 2022 FINDINGS: Two views of the chest were obtained. The heart size and pulmonary vascularity are within normal limits. The mediastinum is normal. There is worsening right basilar atelectasis or pneumonia. There is no pneumothorax. The bony thorax is intact. IMPRESSION: Worsening right basilar atelectasis or pneumonia. Reviewed, Interpreted and Dictated by Spencer Stoner III, MD Transcribed by Chapincito Espinosa Authenticated and [facility]
== END ==
PROVIDERS: PCP Internal Medicine Adolescent Medicine; Visit Provider Nurse Practitioner Family
DX: R05.1 Acute cough (principal); R50.9 Fever, unspecified
CPT/HCPCS: 71046

== ENCOUNTER → 2022-11-30 11:44 | Outpatient (CLI) | payer MEDICARE, BC, SELFPAY | PROVIDERS: PCP Nurse Practitioner Family; Visit Provider Nurse Practitioner Family | DX: J18.9 Pneumonia, unspecified organism (principal); B96.5 Pseudomonas (aeruginosa) (mallei) (pseudomallei) as the cause of diseases classified elsewhere | CPT/HCPCS: 87070; 87077; 87186; 87205 ==

== ENCOUNTER → 2022-12-23 16:27 | Outpatient (CLI) | payer MEDICARE, BC, SELFPAY | PROVIDERS: PCP Internal Medicine Adolescent Medicine; Visit Provider Internal Medicine Adolescent Medicine | DX: M54.50 Low back pain, unspecified (principal) ==

== ENCOUNTER → 2022-12-23 16:30 | Outpatient (CLI) | payer MEDICARE, BC, SELFPAY | PROVIDERS: PCP Internal Medicine Adolescent Medicine; Visit Provider Internal Medicine Adolescent Medicine | DX: M54.50 Low back pain, unspecified (principal) ==

== ENCOUNTER → 2022-12-23 16:32 | Outpatient (CLI) | payer MEDICARE, BC, SELFPAY ==
[2022-12-23 16:48] LABS: Microscopic, Urine URINE MICROSCOPIC (MICROSCOPIC)
[2022-12-23 17:27] LABS: Appearance,Urine CLOUDY (Clear); Blood, Urine 3+ (Negative); Color,Urine ORANGE (Yellow); Glucose,Urine (UA) Negative (Negative); Ketones,Urine Negative (Negative); Leukocyte Esterase,Urine Negative (Negative); Nitrate,Urine POSITIVE (Negative); PH,Urine 5.5 (5.0-8.5); Protein,Urine 2+ (Negative); Specific Gravity, Urine >= 1.030 (1.005-1.030)
[2022-12-23 17:39] LABS: Basophils # 0.1 K/mm3 (0-0.2); Basophils % 1.3 % (0.1-2.0); Eosinophils # 0.3 K/mm3 (0.0-0.4); Eosinophils % 4.4 % (0.1-12.0); Hematocrit 47.4 % (37.0-47.0); Hemoglobin 15.1 g/dL (12.2-16.2); Lymphocytes # 2.1 K/mm3 (0.7-4.5); Lymphocytes % 29.4 % (10-50); Mean Corpuscular HGB Conc 31.8 g/dL (31.8-35.4); Mean Corpuscular Hemoglobin 27.1 pg (27.0-31.2); Mean Corpuscular Volume 85.3 fl (81-99); Mean Platelet Volume 9.3 fl (7.4-10.4); Monocytes # 0.5 K/mm3 (0.1-1.0); Monocytes % 6.7 % (1.7-9.3); Neutrophils # 4.2 K/mm3 (1.8-7.8); Neutrophils % 58.2 % (37.0-80.0); Platelet Count 282 K/mm3 (142-424); Red Blood Count 5.55 M/mm3 (4.20-5.40); White Blood Count 7.2 K/mm3 (4.8-10.8)
[2022-12-23 17:44] LABS: Chloride 107 mmol/L (98-107); Potassium 4.4 mmoL/L (3.5-5.1); Sodium 145 mmol/L (136-145)
[2022-12-23 17:47] LABS: Alanine Aminotransferase 16 U/L (12-78); Albumin Level 3.8 g/dl (3.5-5.0); Albumin/Globulin Ratio 1.1 (1.1-1.8); Alkaline Phosphatase 159 U/L (38-126); Anion Gap 9.4 mEq/L (5-15); Aspartate Amino Transferase 32 U/L (14-36); Bilirubin,Total 0.6 mg/dl (0.2-1.3); Blood Urea Nitrogen 20 mg/dl (7-17); Calcium 9.3 mg/dl (8.4-10.2); Carbon Dioxide 33 mmol/L (22.0-30.0); Estimated Glomerular Filt Rate 81 ml/min (>60); GFR (African American) 98 ML/MIN (>60); Globulin 3.4 g/dL (1.3-3.2); Glucose 108 mg/dl (74-100); Total Protein,Serum 7.2 g/dl (6.3-8.2)
[2022-12-23 18:05] LABS: Bilirubin,Urine 2+ (Negative)
[2022-12-23 19:48] LABS: Bacteria,Urine Trace /lpf; RBC,Urine TNTC #/hpf (0-3)
== END ==
PROVIDERS: Physician Assistant; PCP Internal Medicine Adolescent Medicine; Visit Provider Internal Medicine Adolescent Medicine
DX: R31.9 Hematuria, unspecified (principal); M54.50 Low back pain, unspecified
CPT/HCPCS: 36415; 80053; 81001; 85025; 87086

== ENCOUNTER 2023-01-04 15:40 | Emergency (ER) | payer MEDICARE, BC, SELFPAY ==
[2023-01-04 15:41] VITALS: BP 130/75; PULSE 94; RESP 18; TEMP 37.6; O2SAT 95; BMI 33.0
--- NOTE | 2023-01-04 16:11 | XR_ITS ---
PROCEDURE INFORMATION: Exam: XR Chest Exam date and time: 01/04/2023 4:25 PM Age: 77 years old Clinical indication: Patient HX: Cough, body aches, generalized fatigue. TECHNIQUE: Imaging protocol: Radiologic exam of the chest. Views: 2 views. COMPARISON: CR XR CHEST 2V 11/29/2022 12:03 PM FINDINGS: Lungs: Possible right middle lobe infiltrate. No pulmonary edema. Pleural spaces: No significant pleural effusion. No pneumothorax. Heart/Mediastinum: Cardiomediastinal silouhette is within normal limits. Bones/joints: No evidence of acute osseous abnormality. IMPRESSION: Possible right middle lobe infiltrate.
[2023-01-04 16:20] LABS: UTC Influenza A Antigen Negative (Negative); UTC Influenza B Antigen Negative (Negative)
--- NOTE | 2023-01-04 16:38 | EXP.UTC ---
Discharge Plan Disposition Patient Disposition: Home, Self-Care Condition: Good Prescriptions Prescriptions: New azithromycin [azithromycin] 250 mg tablet 250 mg PO DIRECTED Qty: 6 0RF Rx Instructions: Take two (2) tablets on day #1, then one (1) tablet day #2 thru #5 No Action atorvastatin 80 mg tablet 80 mg PO ONCE cyanocobalamin (vitamin B-12) 1,000 mcg/mL solution 1,000 mcg IM DAILY Patient Comments: INJECT 1 ML INTRAMUSCULARLY ONCE A WEEK DIRECTED FOR B12 LEVEL donepezil 5 mg tablet 5 mg PO HS Patient Comments: TAKE ONE TABLET BY MOUTH EVERY DAY AT BEDTIME omeprazole 40 mg capsule,delayed release(DR/EC) 40 mg PO DAILY furosemide 20 mg tablet 20 mg PO DAILY cholecalciferol (vitamin D3) 25 mcg (1,000 unit) capsule 25 mcg PO DAILY Patient Comments: TAKE ONE CAPSULE BY MOUTH EVERY DAY pregabalin 50 mg capsule 50 mg PO HS Patient Comments: TAKE ONE CAPSULE BY MOUTH EVERY DAY IN THE EVENING MAY CAUSE DROWSINESS Linzess 290 mcg capsule 290 mcg PO DAILY Sucraid 8,500 unit/mL solution 2 ml PO meclizine 25 mg tablet 25 mg PO TID albuterol sulfate 90 mcg/actuation HFA aerosol inhaler 2 inh inhalation BID 90 Days Qty: 8.5 3RF Rx Instructions: To be used before flutter valve for sputum clearance azelastine 137 mcg (0.1 %) aerosol,spray 2 spray NS BID 90 Days Qty: 30 2RF Rx Instructions: administer into each nostril fluticasone propionate 50 mcg/actuation spray,suspension 2 spray NS DAILY 90 Days Qty: 15.8 2RF Rx Instructions: administer into each nostril montelukast 10 mg tablet 10 mg PO DAILY 90 Days Qty: 90 3RF hydroxyzine pamoate 25 MG capsule 25 mg PO DAILY memantine 10 MG tablet 10 mg PO BID aspirin 81 MG tablet,delayed release (DR/EC) 81 mg PO DAILY ergocalciferol (vitamin D2) 50,000 UNIT capsule 50,000 unit PO DAILY cyclobenzaprine 5 MG tablet 5 mg PO NEEDED PRN (Reason: muscles) acetaminophen 500 MG tablet 500 mg PO QID PRN (Reason: PAIN) Referrals Follow up/Referrals: James Stack MD [Primary Care Provider] - See instructions Activity Restrictions/Add. Instructions Additional Instructions/Restrictions: Start antibiotic today. Be sure to complete entire prescription even if feeling better Tylenol and ibuprofen as needed for pain or fever Humidifier/vaporizer/hot steamy shower Follow-up with primary care tomorrow. Follow-up immediately in the ER of the [facility] for new or worsening symptoms or no noticeable improvement over the next 48-72 hours. Stop smoking Clinical Impressions Clinical Impression: Pneumonia Qualifiers: Pneumonia type: due to unspecified organism Laterality: right Lung location: middle lobe of lung Qualified Code(s): J18.9 - Pneumonia, unspecified organism Instructions Patient Instructions: Pneumonia-Adult Discharge ED Provider: Tiny ([facility])José [facility] [place] HPI General Stated complaint: fever, cough, h/a, bilateral ear pain, body aches Mode of Arrival: Ambulatory Source of Information: Patient Limitations: No Limitations Time Seen by Provider: 01/04/23 16:38 Description of Symptoms (Recalled from Triage Doc. by RN): NORMAN, fever, bilateral ear pain, cough, and body aches HEENT Symptoms (Recalled from RN notes): Yes Resp Symptoms (Recalled from RN notes): No Skin Symptoms (Recalled from RN notes): No MS Symptoms (Recalled from RN notes): No Functional Status (Recalled from RN notes): n/a History of Present Illness Provider Complaint: 77 yr old female presents with c/o NORMAN, fever, bilateral ear pain, cough, and body aches Related Data Home Medications Medication Instructions Recorded Confirmed atorvastatin 80 mg tablet 80 mg PO ONCE Cholesterol 05/30/17 12/28/22 memantine 10 mg tablet 10 mg PO BID MEMORY 02/02/19 12/28/22 aspirin 81 mg tablet,delayed 81 mg PO DAILY heart health 11/10
[2023-01-04 17:33] VITALS: BP 130/75; PULSE 94; RESP 18; TEMP 37.6; O2SAT 95
== END 2023-01-04 17:33 | disposition home or self-care (01) ==
PROVIDERS: Emergency Provider Nurse Practitioner Family; PCP Internal Medicine Adolescent Medicine
DX: U07.1 COVID-19 (principal); J12.82 Pneumonia due to coronavirus disease 2019; I11.0 Hypertensive heart disease with heart failure; I50.9 Heart failure, unspecified; J44.9 Chronic obstructive pulmonary disease, unspecified; E78.5 Hyperlipidemia, unspecified; E11.9 Type 2 diabetes mellitus without complications; K21.9 Gastro-esophageal reflux disease without esophagitis; I49.8 Other specified cardiac arrhythmias
CPT/HCPCS: 71046; 87635; 87804; 99204; 99212; G0463

== ENCOUNTER → 2023-01-05 11:23 | Outpatient (CLI) | payer MEDICARE, BC, SELFPAY | PROVIDERS: PCP Internal Medicine Adolescent Medicine; Visit Provider Nurse Practitioner Family | DX: J18.9 Pneumonia, unspecified organism (principal); B96.89 Other specified bacterial agents as the cause of diseases classified elsewhere | CPT/HCPCS: 87070; 87205 ==

== ENCOUNTER → 2023-03-23 13:12 | Outpatient (CLI) | payer MEDICARE, BC, SELFPAY ==
--- NOTE | 2023-03-23 13:25 | XR_ITS ---
FINAL REPORT CLINICAL HISTORY: SOB COMPARISON: 01/04/2023 FINDINGS: TWO-VIEW CHEST The heart size is normal. The mediastinum is normal. The previously noted opacity in the right cardiophrenic angle has largely resolved. There is mild scarring in the lung bases. There is no pneumothorax. IMPRESSION: Resolution of previously noted opacity at the right cardiophrenic angle. Reviewed, Interpreted and Dictated by Kenn Ortiz MD Transcribed by Gemma Mann Authenticated and [facility]
[2023-03-23 15:24] LABS: Adenovirus,PCR Not Detected (NotDetected); Coronavirus 19, PCR Not Detected (NotDetected); Coronavirus 229E Not Detected (NotDetected); Coronavirus NL63 Not Detected (NotDetected); Coronavirus OC43 Not Detected (NotDetected); Coronovirus HKU1,PCR Not Detected (NotDetected); Human Metapneumovirus Not Detected (NotDetected); Influenza A, PCR Not Detected (NotDetected); Influenza AH1, 2009 Not Detected (NotDetected); Influenza AH1, PCR Not Detected (NotDetected); Influenza AH3,PCR Not Detected (NotDetected); Influenza B, PCR Not Detected (NotDetected); Parainfluenza 1, PCR Not Detected (NotDetected); Parainfluenza 2, PCR Not Detected (NotDetected); Parainfluenza 3, PCR Not Detected (NotDetected); Parainfluenza 4, PCR Not Detected (NotDetected); Respiratory Syncytial Virus Not Detected (NotDetected); Rhinovirus/Enterovirus Not Detected (NotDetected)
== END ==
PROVIDERS: PCP Internal Medicine Adolescent Medicine; Visit Provider Internal Medicine Pulmonary Disease
DX: R06.02 Shortness of breath (principal); R06.09 Other forms of dyspnea
CPT/HCPCS: 71046; 87581; 87632; 87635; 87798

== ENCOUNTER → 2023-03-24 16:24 | Outpatient (CLI) | payer MEDICARE, BC, SELFPAY | LOC: LAB.DROPOF 16:25 | PROVIDERS: PCP Internal Medicine Adolescent Medicine; Visit Provider Internal Medicine Pulmonary Disease | DX: J18.9 Pneumonia, unspecified organism (principal); R05.3 Chronic cough; B96.5 Pseudomonas (aeruginosa) (mallei) (pseudomallei) as the cause of diseases classified elsewhere; B96.89 Other specified bacterial agents as the cause of diseases classified elsewhere | CPT/HCPCS: 87070; 87205 ==

== ENCOUNTER 2023-05-16 13:56 | Observation (INO) | payer MEDICARE, BC, SELFPAY ==
[2023-05-16] VITALS (8 sets, daily range): BP systolic 113–143; BP diastolic 48–81; PULSE 60–94; RESP 16–22; TEMP 36.4–36.7; O2SAT 93–98; BMI 34.9; BMI 34.2
--- NOTE | 2023-05-16 14:01 | [facility].EDGENADL ---
Discharge Plan Disposition Patient Disposition: Admitted Clinical Impressions Clinical Impression: Vomiting Discharge ED Provider: Keith Avalos General Adult HPI <DESMOND Smith - Last Filed: 05/16/23 16:56> General Chief complaint: Fall Stated complaint: fall at home neck pain lower back pain Time Seen by Provider: 05/16/23 14:01 History of Present Illness HPI narrative: Patient is a very long history of significant vertigo on twice a day meclizine, presents to the ER after a syncopal episode that occurred during a vertigo flare Related Data Home Medications Medication Instructions Recorded Confirmed atorvastatin 80 mg tablet 80 mg PO ONCE Cholesterol 05/30/17 05/16/23 memantine 10 mg tablet 10 mg PO BID MEMORY 02/02/19 05/16/23 cyanocobalamin (vitamin B-12) 1,000 mcg IM DAILY Supplement 04/22/20 05/16/23 1,000 mcg/mL injection solution acetaminophen 500 mg tablet 500 mg PO QID PRN PAIN 07/09/20 05/16/23 donepezil 5 mg tablet 5 mg PO HS 12/08/21 05/16/23 furosemide 20 mg tablet 20 mg PO DAILY 12/08/21 05/16/23 linaclotide 290 mcg capsule 290 mcg PO DAILY 12/08/21 05/16/23 (Linzess) pregabalin 50 mg capsule 50 mg PO HS 12/08/21 05/16/23 sacrosidase 8,500 unit/mL oral 2 ml PO DIRECTED 12/08/21 05/16/23 solution (Sucraid) meclizine 25 mg tablet 25 mg PO TID 05/04/22 05/16/23 aspirin 325 mg tablet,delayed 325 mg PO DAILY 05/16/23 05/16/23 release cholecalciferol (vitamin D3) 50 50 mcg PO DAILY 05/16/23 05/16/23 mcg (2,000 unit) capsule omeprazole 20 mg capsule,delayed 20 mg PO DAILY 05/16/23 05/16/23 release aluminum-mag hydroxide-simethicone 5 ml PO NEEDED PRN Acid Reflux 05/17/23 05/17/23 200 mg-200 mg-20 mg/5 mL oral susp azelastine 137 mcg (0.1 %) nasal 2 spray intranasal DAILY 05/17/23 05/17/23 spray aerosol montelukast 10 mg tablet 10 mg PO DAILY 05/17/23 05/17/23 Previous Rx's Medication Instructions Recorded albuterol sulfate 90 mcg/actuation 2 inh inhalation BID shortness of 12/28/22 aerosol inhaler breath or wheezing 90 days #8.5 grams fluticasone propionate 50 2 spray intranasal DAILY 90 days 12/28/22 mcg/actuation nasal #15.8 mL spray,suspension ipratropium 0.5 mg-albuterol 3 mg 3 ml inhalation Q6H PRN shortness 03/28/23 (2.5 mg base)/3 mL nebulization of breath or wheezing #90 mL soln Allergies Allergy/AdvReac Type Severity Reaction Status Date / Time honey Allergy Severe Anaphylaxis Verified 03/23/23 14:17 adhesive [ADHESIVE] Allergy Unknown Verified 03/23/23 14:17 ceftriaxone [From ROCEPHIN] Allergy Unknown Verified 03/23/23 14:17 ciprofloxacin [From CIPRO] Allergy Unknown Verified 03/23/23 14:17 codeine [CODEINE] Allergy Unknown Verified 03/23/23 14:17 gabapentin [GABAPENTIN] Allergy Unknown Verified 03/23/23 14:17 iodine [IODINE] Allergy Unknown Verified 03/23/23 14:17 latex [LATEX] Allergy Unknown Verified 03/23/23 14:17 meloxicam [MELOXICAM] Allergy Unknown Verified 03/23/23 14:17 meperidine [MEPERIDINE] Allergy Unknown Verified 03/23/23 14:17 oxytetracycline Allergy Unknown Verified 03/23/23 14:17 [OXYTETRACYCLINE] polymyxin B [POLYMYXIN B] Allergy Unknown Verified 03/23/23 14:17 rice [RICE] Allergy Unknown Verified 03/23/23 14:17 soy [SOY] Allergy Unknown Verified 03/23/23 14:17 venlafaxine [VENLAFAXINE] Allergy Unknown Verified 03/23/23 14:17 Iodinated Contrast Media Allergy Verified 05/16/23 14:55 BEEF Allergy Unknown ITCHING Uncoded 03/23/23 14:17 FISH. Allergy Unknown UNK RXN-ON Uncoded 03/23/23 14:17 ALLERGY TESTING ONLY From EGGS (FOOD/DRUG) Allergy Unknown DIARRHEA/NA Uncoded 03/23/23 14:17 USEA/VOMITI NG From MILK (FOOD/DRUG) Allergy Unknown DIARRHEA Uncoded 03/23/23 14:17 POTATOES Allergy Unknown BLOATING Uncoded 03/23/23 14:17 SEVELLA Allergy Unknown OUT OF IT Uncoded 03/23/23 14:17 VIOXX Allergy Unknown RASH/ITCHIN Uncoded 03/23/23 14:17 G WHEAT Allergy Unknown ITCHING IN Uncoded 03/23/23 14:17 MOUTH/NAUSEA PFSH <DESMOND Smith - Last Filed: 05/16/23 16:56> PFS Disclaimer: The information contained in this section may have been updated after the patient was seen, as this information can be updated by other users. Medical History (Updated 05/16/23 @ 22:40 by Naman Sandoval MD) Abnormality of lung on CXR Arrhythmia Asthma Atrial fibrillation Body aches CHF (congestive heart failure) Chronic cough COPD (chronic obstructive pulmonary disease) Cough productive of purulent sputum Dyspnea on exertion Fatigue Fever GERD (gastroesophageal reflux disease) Hearing loss of both ears HLD (hyperlipidemia) HTN (hypertension), benign Meniere's disease Post-nasal drip Sinus drainage T2DM (type 2 diabetes mellitus) Surgical History H/O breast biopsy H/O lumpectomy History of cholecystectomy Hx of tonsillectomy Family History Tuberculosis Diabetes Coronary artery disease Hyperlipidemia Kidney disease Heart attack Cancer Hypertension Social History Smoking Status: Never smoker alcohol intake: never substance use type: denies use current occupational status: retired and disabled Travel in the last 8 weeks: None housing: assisted living facility current occupational exposures/hazards: No caffeine: Yes <DESMOND Smith - Last Filed: 05/16/23 16:56> ROS Obtained: Yes Systems reviewed as appropriate & no additional complaints except as documented Physical Exam <DESMOND Smith - Last Filed: 05/16/23 16:56> Narrative Physical exam: Patient is a well-nourished well-developed obese 78-year-old female who is currently dry heaving but otherwise is in no acute distress General General appearance: alert and in no apparent distress Head Head exam: atraumatic, normal inspection and other (Tender to palpation in the posterior occiput but no evidence of deformity laceration hematoma on palpation) Eye Eye exam: Present normal appearance, PERRL and EOMI ENT ENT exam: Present normal exam, normal oropharynx and mucous membranes moist Neck Neck exam: Present normal inspection, full ROM (But painful) and trachea midline; Absent lymphadenopathy Chest Chest inspection: Present normal inspection and symmetric chest wall rise Respiratory Respiratory exam: Present normal lung sounds bilaterally; Absent accessory muscle use Cardiovascular Cardiovascular exam: Present regular rate, normal rhythm, normal heart sounds, +S1 and +S2 Abdominal Exam Abdominal exam: Present soft, normal bowel sounds and other (Obese); Absent tenderness, guarding or rebound Extremities Exam Extremities exam: Present normal inspection; Absent full ROM (Diminished range of motion in the dorsal spine and bilateral hips due to discomfort. Patient has an abrasion/skin tear to the right elbow) Neurological Exam Neurological exam: Present alert, oriented X3 and CN II-XII intact Psychiatric Psychiatric exam: Present normal affect and normal mood Skin Skin exam: Present warm, dry and normal color Medical Decision Making <DESMOND Smith - Last Filed: 05/16/23 16:56> Medical Records Medical records reviewed: Yes I reviewed the patient's medical records. Nayan Inquiry Pt receiving controlled substance: No Vital Signs: 05/16/23 14:09 05/16/23 14:05 05/16/23 15:00 Temperature 97.7 F Temperature Source Oral Pulse Rate 68 68 Pulse Rate [Right Radial] 79 Respiratory Rate 20 20 20 Blood Pressure 143/75 H Blood Pressure [Right Arm] 143/75 H Blood Pressure Mean 89 Blood Pressure Mean [Right Arm] 97 02 Sat by Pulse Oximetry 96 97 95 Oxygen Delivery Method Room Air Oxygen Flow Rate (LPM) 05/16/23 17:15 05/16/23 17:30 05/16/23 18:00 Temperature Temperature Source Pulse Rate 66 64 63 Pulse Rate [Right Radial] Respiratory Rate 16 22 22 Blood Pressure 137/48 L 116/56 L 113/57 L Blood Pressure [Right Arm] Blood Pressure Mean 77 76 71 Blood Pressure Mean [Right Arm] 02 Sat by Pulse Oximetry 97 94 L 93 L Oxygen Delivery Method Nasal Cannula Nasal Cannula Oxygen Flow Rate (LPM) 3 3 Lab Data Lab results reviewed: Yes I reviewed the patient's lab results. Lab Results 05/16/23 14:00: WBC 8.2, RBC 5.56 H, Hgb 15.6, Hct 47.8 H, MCV 85.9, MCH 28.1, MCHC 32.7, RDW 13.5, Plt Count 266, MPV 9.0, Neut % (Auto) 78.2, Lymph % (Auto) 15.7, [place] % (Auto) 5.3, Eos % (Auto) 0.3, Baso % (Auto) 0.6, Neut # (Auto) 6.4, Lymph # (Auto) 1.3, [place] # (Auto) 0.4, Eos # (Auto) 0.0, Baso # (Auto) 0.1, PT 10.6, INR 0.98, D-Dimer 1.28 H, Sodium 140, Potassium 4.0, Chloride 106, Carbon Dioxide 28, Anion Gap 10.0, BUN 12, Creatinine 0.70, Estimated Creat Clear 78, Estimated GFR 81, Est GFR ( Amer) 98, Glucose 163 H, Calcium 9.3, Total Bilirubin 1.0, AST 30, ALT 23, Alkaline Phosphatase 136 H, Total Creatine Kinase 55, Total Protein 7.3, Albumin 4.0, Globulin 3.3 H, Albumin/Globulin Ratio 1.2 05/17/23 06:20 05/17/23 06:20 Orders (Tests/Meds): ED MEDICATIONS Generic Name Dose Route Start Last Admin Trade Name Freq PRN Reason Stop Dose Admin Acetaminophen 650 mg 05/16/23 20:03 05/16/23 20:19 Acetaminophen 325mg Tab PO 06/15/23 20:02 650 mg Q4HP PRN Administration Fever or Mild Pain (1-3) Albuterol Sulfate 2 puff 05/16/23 21:00 05/17/23 06:17 Albuterol-Hfa 90mcg/Puff Inhaler 8gm 06/15/23 20:59 2 puff BID MARGARET Administration Albuterol/Ipratropium 3 ml 05/16/23 18:48 Ipratropium/Albuterol 3 Ml Neb 06/15/23 18:47 Q6HP PRN shortness of breath or wheezing Atorvastatin Calcium 80 mg 05/16/23 19:00 Atorvastatin 40mg Tablet PO 06/15/23 18:59 ONCE MARGARET Donepezil HCl 5 mg 05/16/23 21:00 05/16/23 20:19 Donepezil 5mg Tab PO 06/15/23 20:59 5 mg HS MARGARET Administration Fluticasone Propionate 2 spray 05/17/23 09:00 Fluticasone Prop 50mcg Nasal [place] 16gm NS 06/16/23 08:59 DAILY MARGARET Meclizine HCl 25 mg 05/16/23 21:00 05/16/23 20:19 Meclizine 25mg Tablet PO 06/15/23 20:59 25 mg TID MARGARET Administration Memantine 10 mg 05/16/23 21:00 05/16/23 20:19 Memantine 10mg Tablet PO 06/15/23 20:59 10 mg BID MARGARET Administration Pantoprazole Sodium 40 mg 05/16/23 21:00 05/16/23 20:19 Pantoprazole 40mg Tablet PO 06/15/23 20:59 40 mg HS MARGARET Administration Promethazine HCl 25 mg 05/16/23 16:52 Promethazine Hcl 25mg/Ml 1ml Vial IV 06/15/23 16:51 Q6HP PRN Nausea And Vomiting Discontinued Medications Generic Name Dose Route Start Last Admin Trade Name Freq PRN Reason Stop Dose Admin Acetaminophen 1,000 mg 05/16/23 14:08 05/16/23 14:46 Acetaminophen 1,000mg/100ml Vial IV 05/16/23 14:09 1,000 mg ONCE ONE Administration Lactated Ringer's 1,000 mls @ 250 mls/hr 05/16/23 17:00 05/16/23 17:06 Lactated Ringer's 1000 Ml Bag IV 05/16/23 20:59 250 mls/hr .Q4H MARGARET Administration Miscellaneous 1 unit 05/16/23 18:48 05/16/23 21:52 Aerochamber/Optihaler MC 05/16/23 18:49 Not Given ONCE ONE Ondansetron HCl 4 mg 05/16/23 14:30 05/16/23 14:47 Ondansetron 4mg/2ml Vial IV 05/16/23 14:31 4 mg ONCE ONE Administration Ondansetron HCl 4 mg 05/16/23 15:26 05/16/23 15:31 Ondansetron 4mg/2ml Vial IV 05/16/23 15:27 4 mg ONCE ONE Administration Promethazine HCl 12.5 mg 05/16/23 16:19 05/16/23 17:06 Promethazine Hcl 25mg/Ml 1ml Vial IV 05/16/23 16:20 12.5 mg ONCE ONE Administration Scopolamine 1 each 05/16/23 16:53 05/16/23 17:16 Scopolamine 1.5mg/72hrs Patch TD 05/16/23 16:54 1 each ONCE ONE Administration Sodium Chloride 25 ml 05/16/23 16:19 05/16/23 17:06 Sodium Chloride 0.9% 25ml Bag IV 05/16/23 16:20 25 ml ONCE ONE Administration Sodium Chloride 25 ml 05/16/23 16:52 05/16/23 18:32 Sodium Chloride 0.9% 25ml Bag IV 05/16/23 16:53 Not Given ONCE ONE ORDERS Category Date Time Status CBC w/Auto Diff [Complete Blood Count Auto Diff] Stat Lab 05/16/23 14:00 Completed CK [Creatine Kinase] Stat Lab 05/16/23 14:00 Completed CMP [Comprehensive Metabolic Panel] Stat Lab 05/16/23 14:00 Completed Complete Blood Count Auto Diff AMLAB Lab 05/17/23 06:20 Completed Comprehensive Metabolic Panel AMLAB Lab 05/17/23 06:20 Completed D-Dimer Stat Lab 05/16/23 14:00 Completed INR [Prothrombin Time INR] Stat Lab 05/16/23 14:00 Completed Magnesium AMLAB Lab 05/17/23 06:20 Completed ECG initial [place] Routine Y 05/16/23 14:10 Completed Medical Decision Narrative: In summary patient is a 78-year-old female who presents to the emergency department for evaluation of syncope, vertigo, head neck back and hip pain. Patient has past medical history of vertigo, a chronic lung infection that is currently being followed by pulmonology, severe presbycusis, reported history of diabetes mellitus but not on any current diabetic medications, diabetic neuropathy. Patient is hemodynamically stable upon arrival, and afebrile. Patient is currently experiencing vertiginous symptoms with nausea and now dry heaves. She has longstanding history of vertigo on twice a day meclizine. She was awoken in the middle of the night although she is unsure exactly what time with a dizziness episode. She normally has to sleep in a recliner due to the inability to lie flat due to dizziness. She got up to go to the restroom and was able to void successfully however when she attempted to move back to the recliner she had a syncopal episode. She fell in a doorway and awoke an unknown amount of time later lying facedown. She had difficulty getting herself up but was able to eventually make her way back to the recliner. Her relatives came and found her in the chair and noted that she was awake alert oriented and appropriate. Patient herself states that she has had periods of syncope before with a vertiginous episode but never has lost consciousness for a prolonged period of time like today. She does not know how long she was out but she thinks it was around 0430 hrs. Patient complains of pain to her head neck back pelvis and hips. Neurovascular Ponce shows regular rate and rhythm without murmurs gallops rubs or thrills on auscultation. No dependent edema. Peripheral pulses are +3 and brisk in all 4 extremities. Neurologic exam shows no cerebellar signs of dysarthria ataxia or dysmetria. Patient has a slight abrasion to the left elbow but no deformity noted. Palpation of dorsal spine reveals no deformities or step-offs. Patient is tender in the neck and paraspinous muscles but not actually on palpation of the bony spine. She is focally tender in the left SI joint as well as pain at the bilateral hips on compression. No deformities or instability noted throughout all of the bony skeleton. Differential diagnosis includes vertiginous syncope versus cardiogenic causes versus cardiovascular causes including dissection and vertebral artery aneurysm versus neurogenic causes versus vascular causes versus stroke etc. Initial workup will be conducted with hematologic labs radiographic studies twelve-lead EKG. Initial interventions include antiemetics to control her intractable vomiting and nausea. Initial workup reviewed by me shows an elevated D-dimer but the remainder of her laboratory investigation are actionable. We considered CT angiography however patient has a significant contrast allergy and the premedication protocol is for a prolonged period of time and we attempted to get noncontrasted studies of the brain and bony skeleton however patient is intolerant of lying flat currently and is still having intractable nausea vomiting. Thus a [employer] cause of cannot be ruled out at this time nor any type of fracture or occult injury. Given this I discussed patient management with hospital medicine. At this point she will be admitted for attempted control of her intractable nausea and vomiting further workup of her syncopal event pending <Keith Avalos MD - Last Filed: 05/17/23 07:45> Vital Signs: 05/16/23 14:09 05/16/23 14:05 05/16/23 15:00 Temperature 97.7 F Temperature Source Oral Pulse Rate 68 68 Pulse Rate [Right Radial] 79 Respiratory Rate 20 20 20 Blood Pressure 143/75 H Blood Pressure [Right Arm] 143/75 H Blood Pressure Mean 89 Blood Pressure Mean [Right Arm] 97 02 Sat by Pulse Oximetry 96 97 95 Oxygen Delivery Method Room Air Oxygen Flow Rate (LPM) 05/16/23 17:15 05/16/23 17:30 05/16/23 18:00 Temperature Temperature Source Pulse Rate 66 64 63 Pulse Rate [Right Radial] Respiratory Rate 16 22 22 Blood Pressure 137/48 L 116/56 L 113/57 L Blood Pressure [Right Arm] Blood Pressure Mean 77 76 71 Blood Pressure Mean [Right Arm] 02 Sat by Pulse Oximetry 97 94 L 93 L Oxygen Delivery Method Nasal Cannula Nasal Cannula Oxygen Flow Rate (LPM) 3 3 Lab Data Lab Results 05/16/23 14:00: WBC 8.2, RBC 5.56 H, Hgb 15.6, Hct 47.8 H, MCV 85.9, MCH 28.1, MCHC 32.7, RDW 13.5, Plt Count 266, MPV 9.0, Neut % (Auto) 78.2, Lymph % (Auto) 15.7, [place] % (Auto) 5.3, Eos % (Auto) 0.3, Baso % (Auto) 0.6, Neut # (Auto) 6.4, Lymph # (Auto) 1.3, [place] # (Auto) 0.4, Eos # (Auto) 0.0, Baso # (Auto) 0.1, PT 10.6, INR 0.98, D-Dimer 1.28 H, Sodium 140, Potassium 4.0, Chloride 106, Carbon Dioxide 28, Anion Gap 10.0, BUN 12, Creatinine 0.70, Estimated Creat Clear 78, Estimated GFR 81, Est GFR ( Amer) 98, Glucose 163 H, Calcium 9.3, Total Bilirubin 1.0, AST 30, ALT 23, Alkaline Phosphatase 136 H, Total Creatine Kinase 55, Total Protein 7.3, Albumin 4.0, Globulin 3.3 H, Albumin/Globulin Ratio 1.2 Orders (Tests/Meds): ED MEDICATIONS Generic Name Dose Route Start Last Admin Trade Name [place] PRN Reason Stop Dose Admin Acetaminophen 650 mg 05/16/23 20:03 05/16/23 20:19 Acetaminophen 325mg Tab PO 06/15/23 20:02 650 mg Q4HP PRN Administration Fever or Mild Pain (1-3) Albuterol Sulfate 2 puff 05/16/23 21:00 05/17/23 06:17 Albuterol-Hfa 90mcg/Puff Inhaler 8gm IH 06/15/23 20:59 2 puff BID MARGARET Administration Albuterol/Ipratropium 3 ml 05/16/23 18:48 Ipratropium/Albuterol 3 Ml Neb 06/15/23 18:47 Q6HP PRN shortness of breath or wheezing Atorvastatin Calcium 80 mg 05/16/23 19:00 Atorvastatin 40mg Tablet PO 06/15/23 18:59 ONCE MARGARET Donepezil HCl 5 mg 05/16/23 21:00 05/16/23 20:19 Donepezil 5mg Tab PO 06/15/23 20:59 5 mg HS MARGARET Administration Fluticasone Propionate 2 spray 05/17/23 09:00 Fluticasone Prop 50mcg Nasal [place] 16gm NS 06/16/23 08:59 DAILY MARGARET Meclizine HCl 25 mg 05/16/23 21:00 05/16/23 20:19 Meclizine 25mg Tablet PO 06/15/23 20:59 25 mg TID MARGARET Administration Memantine 10 mg 05/16/23 21:00 05/16/23 20:19 Memantine 10mg Tablet PO 06/15/23 20:59 10 mg BID MARGARET Administration Pantoprazole Sodium 40 mg 05/16/23 21:00 05/16/23 20:19 Pantoprazole 40mg Tablet PO 06/15/23 20:59 40 mg HS MARGARET Administration Promethazine HCl 25 mg 05/16/23 16:52 Promethazine Hcl 25mg/Ml 1ml Vial IV 06/15/23 16:51 Q6HP PRN Nausea And Vomiting Discontinued Medications Generic Name Dose Route Start Last Admin Trade Name [place] PRN Reason Stop Dose Admin Acetaminophen 1,000 mg 05/16/23 14:08 05/16/23 14:46 Acetaminophen 1,000mg/100ml Vial IV 05/16/23 14:09 1,000 mg ONCE ONE Administration Lactated Ringer's 1,000 mls @ 250 mls/hr 05/16/23 17:00 05/16/23 17:06 Lactated Ringer's 1000 Ml Bag IV 05/16/23 20:59 250 mls/hr .Q4H MARGARET Administration Miscellaneous 1 unit 05/16/23 18:48 05/16/23 21:52 Aerochamber/Optihaler MC 05/16/23 18:49 Not Given ONCE ONE Ondansetron HCl 4 mg 05/16/23 14:30 05/16/23 14:47 Ondansetron 4mg/2ml Vial IV 05/16/23 14:31 4 mg ONCE ONE Administration Ondansetron HCl 4 mg 05/16/23 15:26 05/16/23 15:31 Ondansetron 4mg/2ml Vial IV 05/16/23 15:27 4 mg ONCE ONE Administration Promethazine HCl 12.5 mg 05/16/23 16:19 05/16/23 17:06 Promethazine Hcl 25mg/Ml 1ml Vial IV 05/16/23 16:20 12.5 mg ONCE ONE Administration Scopolamine 1 each 05/16/23 16:53 05/16/23 17:16 Scopolamine 1.5mg/72hrs Patch TD 05/16/23 16:54 1 each ONCE ONE Administration Sodium Chloride 25 ml 05/16/23 16:19 05/16/23 17:06 Sodium Chloride 0.9% 25ml Bag IV 05/16/23 16:20 25 ml ONCE ONE Administration Sodium Chloride 25 ml 05/16/23 16:52 05/16/23 18:32 Sodium Chloride 0.9% 25ml Bag IV 05/16/23 16:53 Not Given ONCE ONE ORDERS Category Date Time Status CBC w/Auto Diff [Complete Blood Count Auto Diff] Stat Lab 05/16/23 14:00 Completed CK [Creatine Kinase] Stat Lab 05/16/23 14:00 Completed CMP [Comprehensive Metabolic Panel] Stat Lab 05/16/23 14:00 Completed Complete Blood Count Auto Diff AMLAB Lab 05/17/23 06:20 Completed Comprehensive Metabolic Panel AMLAB Lab 05/17/23 06:20 Completed D-Dimer Stat Lab 05/16/23 14:00 Completed INR [Prothrombin Time INR] Stat Lab 05/16/23 14:00 Completed Magnesium AMLAB Lab 05/17/23 06:20 Completed ECG initial [place] Routine Y 05/16/23 14:10 Completed Medical Decision Narrative: In summary patient is a 78-year-old female who presents to the emergency department for evaluation of syncope, vertigo, head neck back and hip pain. Patient has past medical history of vertigo, a chronic lung infection that is currently being followed by pulmonology, severe presbycusis, reported history of diabetes mellitus but not on any current diabetic medications, diabetic neuropathy. Patient is hemodynamically stable upon arrival, and afebrile. Patient is currently experiencing vertiginous symptoms with nausea and now dry heaves. She has longstanding history of vertigo on twice a day meclizine. She was awoken in the middle of the night although she is unsure exactly what time with a dizziness episode. She normally has to sleep in a recliner due to the inability to lie flat due to dizziness. She got up to go to the restroom and was able to void successfully however when she attempted to move back to the recliner she had a syncopal episode. She fell in a doorway and awoke an unknown amount of time later lying facedown. She had difficulty getting herself up but was able to eventually make her way back to the recliner. Her relatives came and found her in the chair and noted that she was awake alert oriented and appropriate. Patient herself states that she has had periods of syncope before with a vertiginous episode but never has lost consciousness for a prolonged period of time like today. She does not know how long she was out but she thinks it was around 0430 hrs. Patient complains of pain to her head neck back pelvis and hips. Neurovascular Ponce shows regular rate and rhythm without murmurs gallops rubs or thrills on auscultation. No dependent edema. Peripheral pulses are +3 and brisk in all 4 extremities. Neurologic exam shows no cerebellar signs of dysarthria ataxia or dysmetria. Patient has a slight abrasion to the left elbow but no deformity noted. Palpation of dorsal spine reveals no deformities or step-offs. Patient is tender in the neck and paraspinous muscles but not actually on palpation of the bony spine. She is focally tender in the left SI joint as well as pain at the bilateral hips on compression. No deformities or instability noted throughout all of the bony skeleton. Differential diagnosis includes vertiginous syncope versus cardiogenic causes versus cardiovascular causes including dissection and vertebral artery aneurysm versus neurogenic causes versus vascular causes versus stroke etc. Initial workup will be conducted with hematologic labs radiographic studies twelve-lead EKG. Initial interventions include antiemetics to control her intractable vomiting and nausea. Initial workup reviewed by me shows an elevated D-dimer but the remainder of her laboratory investigation are actionable. We considered CT angiography however patient has a significant contrast allergy and the premedication protocol is for a prolonged period of time and we attempted to get noncontrasted studies of the brain and bony skeleton however patient is intolerant of lying flat currently and is still having intractable nausea vomiting. Thus a [employer] cause of cannot be ruled out at this time nor any type of fracture or occult injury. Given this I discussed patient management with hospital medicine. At this point she will be admitted for attempted control of her intractable nausea and vomiting further workup of her syncopal event pending I was consulted by the HECTOR, and we discussed the complexity of the problems being addressed. I approved the treatment and management plan for this patient?s care in the Emergency Department, thus performing a substantive portion of the medical decision making. Keith Avalos MD Critical Care <DESMOND Smith - Last Filed: 05/16/23 16:56> Critical Care Time Critical Care Time: Yes Attestation: On 05/16/23, the high probability of a clinically significant, sudden or life threatening deterioration of the following system(s) required my full and direct attention, intervention and personal management. The time I documented below is in addition to time spent performing reported procedures but includes the following listed in this critical care notation. Total Time Total Critical Care Time: 45
--- NOTE | 2023-05-16 14:10 | ECG_ITS ---
APPROVED REPORT Exam: Resting ECG HR:82 bpm ECG Measurements Heart Rate 82 AXES TN 211 P 54 QRSd 82 QRS -4 QT 393 T 63 QTc 431 Conclusion SINUS RHYTHM WITH FIRST DEGREE AV BLOCK LOW QRS VOLTAGE IN PRECORDIAL LEADS [QRS DEFLECTION < 1.0 mV IN CHEST LEADS] ABNORMAL ECG UNCONFIRMED REPORT Electronically signed by : James Stack MD 05/16/2023 20:05:30
[2023-05-16 14:45] LABS: Basophils # 0.1 K/mm3 (0-0.2); Basophils % 0.6 % (0.1-2.0); Eosinophils % 0.3 % (0.1-12.0); Hematocrit 47.8 % (37.0-47.0); Hemoglobin 15.6 g/dL (12.2-16.2); Lymphocytes # 1.3 K/mm3 (0.7-4.5); Lymphocytes % 15.7 % (10-50); Mean Corpuscular HGB Conc 32.7 g/dL (31.8-35.4); Mean Corpuscular Hemoglobin 28.1 pg (27.0-31.2); Mean Corpuscular Volume 85.9 fl (81-99); Monocytes # 0.4 K/mm3 (0.1-1.0); Monocytes % 5.3 % (1.7-9.3); Neutrophils # 6.4 K/mm3 (1.8-7.8); Neutrophils % 78.2 % (37.0-80.0); Platelet Count 266 K/mm3 (142-424); Red Blood Count 5.56 M/mm3 (4.20-5.40); Red Cell Distribution Width 13.5 % (11.5-17.5); White Blood Count 8.2 K/mm3 (4.8-10.8)
[2023-05-16] MEDS: ACETAMINOPHEN 1,000MG/100ML VIAL 1000 MG IV (14:46)
[2023-05-16] MEDS: ONDANSETRON 4MG/2ML VIAL 4 MG IV ×2 (14:47→15:31)
[2023-05-16 14:48] LABS: Alanine Aminotransferase 23 U/L (12-78); Albumin/Globulin Ratio 1.2 (1.1-1.8); Alkaline Phosphatase 136 U/L (38-126); Aspartate Amino Transferase 30 U/L (14-36); Blood Urea Nitrogen 12 mg/dl (7-17); Calcium 9.3 mg/dl (8.4-10.2); Carbon Dioxide 28 mmol/L (22.0-30.0); Chloride 106 mmol/L (98-107); Creatine Kinase 55 U/L (30-135); Creatinine Clearance Estimated 78 mL/min (50-200); Estimated Glomerular Filt Rate 81 ml/min (>60); GFR (African American) 98 ML/MIN (>60); Globulin 3.3 g/dL (1.3-3.2); Glucose 163 mg/dl (74-100); Sodium 140 mmol/L (136-145); Total Protein,Serum 7.3 g/dl (6.3-8.2)
[2023-05-16 14:57] LABS: INR 0.98 (0.9-1.1); Prothrombin Time 10.6 seconds (10.1-12.5)
[2023-05-16 15:07] LABS: D-Dimer 1.28 ug/mL (0.0-0.5)
--- NOTE | 2023-05-16 15:09 | ED_ITS ---
I was consulted by the HECTOR, and we discussed the complexity of the problems being addressed. I approved the treatment and management plan for this patient's care in the emergency department, thus performing a substantive portion of the medical decision making. Jenni Morel MD, KELLI, FACE Discharge Plan Disposition Chief Complaint: Fall Prescriptions Prescriptions: No Action atorvastatin 80 mg tablet 80 mg PO ONCE cyanocobalamin (vitamin B-12) 1,000 mcg/mL solution 1,000 mcg IM DAILY Patient Comments: INJECT 1 ML INTRAMUSCULARLY ONCE A WEEK DIRECTED FOR B12 LEVEL donepezil 5 mg tablet 5 mg PO HS Patient Comments: TAKE ONE TABLET BY MOUTH EVERY DAY AT BEDTIME omeprazole 40 mg capsule,delayed release(DR/EC) 40 mg PO DAILY furosemide 20 mg tablet 20 mg PO DAILY cholecalciferol (vitamin D3) 25 mcg (1,000 unit) capsule 25 mcg PO DAILY Patient Comments: TAKE ONE CAPSULE BY MOUTH EVERY DAY pregabalin 50 mg capsule 50 mg PO HS Patient Comments: TAKE ONE CAPSULE BY MOUTH EVERY DAY IN THE EVENING MAY CAUSE DROWSINESS Linzess 290 mcg capsule 290 mcg PO DAILY Sucraid 8,500 unit/mL solution 2 ml PO meclizine 25 mg tablet 25 mg PO TID albuterol sulfate 90 mcg/actuation HFA aerosol inhaler 2 inh inhalation BID 90 Days Qty: 8.5 3RF Rx Instructions: To be used before flutter valve for sputum clearance azelastine 137 mcg (0.1 %) aerosol,spray 2 spray NS BID 90 Days Qty: 30 2RF Rx Instructions: administer into each nostril fluticasone propionate 50 mcg/actuation spray,suspension 2 spray NS DAILY 90 Days Qty: 15.8 2RF Rx Instructions: administer into each nostril ipratropium-albuterol 0.5 mg-3 mg(2.5 mg base)/3 mL solution for nebulization 3 ml inhalation Q6H PRN (Reason: shortness of breath or wheezing) Qty: 90 3RF levofloxacin 750 mg tablet 750 mg PO DAILY 10 Days Qty: 10 0RF hydroxyzine pamoate 25 MG capsule 25 mg PO DAILY memantine 10 MG tablet 10 mg PO BID aspirin 81 MG tablet,delayed release (DR/EC) 81 mg PO DAILY ergocalciferol (vitamin D2) 50,000 UNIT capsule 50,000 unit PO DAILY cyclobenzaprine 5 MG tablet 5 mg PO NEEDED PRN (Reason: muscles) acetaminophen 500 MG tablet 500 mg PO QID PRN (Reason: PAIN) Referrals Follow up/Referrals: James Stack MD [Primary Care Provider] - See instructions Discharge ED Provider: Keith Avalos [facility] General Chief complaint: Fall Stated complaint: fall at home neck pain lower back pain Time Seen by Provider: 05/16/23 14:01 Mode of Arrival: Wheelchair Source of Information: Patient and Relative Limitations: Physical Limitations Description of Symptoms (Recalled from ER Triage Doc. by RN): FALL ABOUT 430 AM. VERTIGO. NECK AND BACK PAIN. Related Data Home Medications Medication Instructions Recorded Confirmed atorvastatin 80 mg tablet 80 mg PO ONCE Cholesterol 05/30/17 03/23/23 memantine 10 mg tablet 10 mg PO BID MEMORY 02/02/19 03/23/23 aspirin 81 mg tablet,delayed 81 mg PO DAILY heart health 11/11/19 03/23/23 release cyclobenzaprine 5 mg tablet 5 mg PO NEEDED PRN muscles 11/11/19 03/23/23 ergocalciferol (vitamin D2) 1,250 50,000 unit PO DAILY Supplement 11/11/19 03/23/23 mcg (50,000 unit) capsule cyanocobalamin (vitamin B-12) 1,000 mcg IM DAILY Supplement 04/22/20 03/23/23 1,000 mcg/mL injection solution acetaminophen 500 mg tablet 500 mg PO QID PRN PAIN 07/09/20 03/23/23 hydroxyzine pamoate 25 mg capsule 25 mg PO DAILY itching 10/07/21 03/23/23 cholecalciferol (vitamin D3) 25 25 mcg PO DAILY 12/08/21 03/23/23 mcg (1,000 unit) capsule donepezil 5 mg tablet 5 mg PO HS 12/08/21 03/23/23 furosemide 20 mg tablet 20 mg PO DAILY 12/08/21 03/23/23 linaclotide 290 mcg capsule 290 mcg PO DAILY 12/08/21 03/23/23 (Linzess) omeprazole 40 mg capsule,delayed 40 mg PO DAILY 12/08/21 03/23/23 release pregabalin 50 mg capsule 50 mg PO HS 12/08/21 03/23/23 sacrosidase 8,500 unit/mL oral 2 ml PO 12/08/21 03/23/23 solution (Sucraid) meclizine 25 mg tablet 25 mg PO TID 05/04/22 03/23/23 Previous Rx's Medication Instructions Recorded albuterol sulfate 90 mcg/actuation 2 inh inhalation BID shortness of 12/28/22 aerosol inhaler breath or wheezing 90 days #8.5 grams azelastine 137 mcg (0.1 %) nasal 2 spray intranasal BID 90 days #30 12/28/22 spray aerosol mL fluticasone propionate 50 2 spray intranasal DAILY 90 days 12/28/22 mcg/actuation nasal #15.8 mL spray,suspension ipratropium 0.5 mg-albuterol 3 mg 3 ml inhalation Q6H PRN shortness 03/28/23 (2.5 mg base)/3 mL nebulization of breath or wheezing #90 mL soln levofloxacin 750 mg tablet 750 mg PO DAILY 10 days #10 tabs 03/30/23 Allergies Allergy/AdvReac Type Severity Reaction Status Date / Time honey Allergy Severe Anaphylaxis Verified 03/23/23 14:17 adhesive [ADHESIVE] Allergy Unknown Verified 03/23/23 14:17 ceftriaxone [From ROCEPHIN] Allergy Unknown Verified 03/23/23 14:17 ciprofloxacin [From CIPRO] Allergy Unknown Verified 03/23/23 14:17 codeine [CODEINE] Allergy Unknown Verified 03/23/23 14:17 gabapentin [GABAPENTIN] Allergy Unknown Verified 03/23/23 14:17 iodine [IODINE] Allergy Unknown Verified 03/23/23 14:17 latex [LATEX] Allergy Unknown Verified 03/23/23 14:17 meloxicam [MELOXICAM] Allergy Unknown Verified 03/23/23 14:17 meperidine [MEPERIDINE] Allergy Unknown Verified 03/23/23 14:17 oxytetracycline Allergy Unknown Verified 03/23/23 14:17 [OXYTETRACYCLINE] polymyxin B [POLYMYXIN B] Allergy Unknown Verified 03/23/23 14:17 rice [RICE] Allergy Unknown Verified 03/23/23 14:17 soy [SOY] Allergy Unknown Verified 03/23/23 14:17 venlafaxine [VENLAFAXINE] Allergy Unknown Verified 03/23/23 14:17 Iodinated Contrast Media Allergy Verified 05/16/23 14:55 BEEF Allergy Unknown ITCHING Uncoded 03/23/23 14:17 FISH. Allergy Unknown UNK RXN-ON Uncoded 03/23/23 14:17 ALLERGY TESTING ONLY From EGGS (FOOD/DRUG) Allergy Unknown DIARRHEA/NA Uncoded 03/23/23 14:17 USEA/VOMITI NG From MILK (FOOD/DRUG) Allergy Unknown DIARRHEA Uncoded 03/23/23 14:17 POTATOES Allergy Unknown BLOATING Uncoded 03/23/23 14:17 SEVELLA Allergy Unknown OUT OF IT Uncoded 03/23/23 14:17 VIOXX Allergy Unknown RASH/ITCHIN Uncoded 03/23/23 14:17 G WHEAT Allergy Unknown ITCHING IN Uncoded 03/23/23 14:17 MOUTH/NAUSEA PFSH PFSH Disclaimer: The information contained in this section may have been updated after the slick ent was seen, as this information can be updated by other users. Medical History (Updated 03/23/23 @ 15:41 by Jennifer Sierra MD) Abnormality of lung on CXR Arrhythmia Asthma Atrial fibrillation Body aches CHF (congestive heart failure) Chronic cough COPD (chronic obstructive pulmonary disease) Cough productive of purulent sputum Dyspnea on exertion Fatigue Fever GERD (gastroesophageal reflux disease) Hearing loss of both ears HLD (hyperlipidemia) HTN (hypertension), benign Meniere's disease Post-nasal drip Sinus drainage T2DM (type 2 diabetes mellitus) Surgical History H/O breast biopsy H/O lumpectomy History of cholecystectomy Hx of tonsillectomy Family History Other Cancer Coronary artery disease Diabetes Heart attack Hyperlipidemia Hypertension Kidney disease Tuberculosis Social History Smoking Status: Never smoker alcohol intake: never substance use type: denies use current occupational status: retired Travel in the last 8 weeks: None housing: assisted living facility current occupational exposures/hazards: No caffeine: Yes Physical Exam General General appearance: alert and in no apparent distress Medical Decision Making Vital Signs: 05/16/23 14:09 05/16/23 14:05 Temperature 97.7 F Temperature Source Oral Pulse Rate 68 Pulse Rate [Right Radial] 79 Respiratory Rate 20 20 Blood Pressure 143/75 H Blood Pressure [Right Arm] 143/75 H Blood Pressure Mean 89 Blood Pressure Mean [Right Arm] 97 02 Sat by Pulse Oximetry 96 97 Oxygen Delivery Method Room Air Lab Data Lab Results 05/16/23 14:00: WBC 8.2, RBC 5.56 H, Hgb 15.6, Hct 47.8 H, MCV 85.9, MCH 28.1, MCHC 32.7, RDW 13.5, Plt Count 266, MPV 9.0, Neut % (Auto) 78.2, Lymph % (Auto) 15.7, [place] % (Auto) 5.3, Eos % (Auto) 0.3, Baso % (Auto) 0.6, Neut # (Auto) 6.4, Lymph # (Auto) 1.3, [place] # (Auto) 0.4, Eos # (Auto) 0.0, Baso # (Auto) 0.1, PT 10.6, INR 0.98, Sodium 140, Potassium 4.0, Chloride 106, Carbon Dioxide 28, Anion Gap 10.0, BUN 12, Creatinine 0.70, Estimated Creat Clear 78, Estimated GFR 81, Est GFR ( Amer) 98, Glucose 163 H, Calcium 9.3, Total Bilirubin 1.0, AST 30, ALT 23, Alkaline Phosphatase 136 H, Total Creatine Kinase 55, Total Protein 7.3, Albumin 4.0, Globulin 3.3 H, Albumin/Globulin Ratio 1.2 05/16/23 14:00 05/16/23 14:00 Orders (Tests/Meds): ED MEDICATIONS Discontinued Medications Generic Name Dose Route Start Last Admin Trade Name Freq PRN Reason Stop Dose Admin Acetaminophen 1,000 mg 05/16/23 14:08 05/16/23 14:46 Acetaminophen 1,000mg/100ml Vial IV 05/16/23 14:09 1,000 mg ONCE ONE Administration Ondansetron HCl 4 mg 05/16/23 14:30 05/16/23 14:47 Ondansetron 4mg/2ml Vial IV 05/16/23 14:31 4 mg ONCE ONE Administration ORDERS Category Date Time Status CT angio head Stat Cat Scan 05/16/23 14:[address] angio neck Stat Cat Scan 05/16/23 14:[address] bony pelvis Stat Cat Scan 05/16/23 14:[address] cervical spine wo con Stat Cat Scan 05/16/23 14:[address] head/brain wo con Stat Cat Scan 05/16/23 14:[address] lumbar spine wo con Stat Cat Scan 05/16/23 14:[address] thoracic spine wo con Stat Cat Scan 05/16/23 14:08 Ordered CTA Chest [CT angio chest PE protocol] Stat Cat Scan 05/16/23 14:25 Ordered Elbow XR right 2 views [XR elbow RT 2V] Stat Exams 05/16/23 14:25 Ordered XR hip LT 2-3V w/pelvis Stat Exams 05/16/23 14:25 Ordered CBC w/Auto Diff [Complete Blood Count Auto Diff] Stat Lab 05/16/23 14:00 Completed CK [Creatine Kinase] Stat Lab 05/16/23 14:00 Completed CMP [Comprehensive Metabolic Panel] Stat Lab 05/16/23 14:00 Completed D-Dimer Stat Lab 05/16/23 14:00 Received INR [Prothrombin Time INR] Stat Lab 05/16/23 14:00 Completed ECG Data Tracing #1: I reviewed this ECG and interpreted as documented below: Ventricular rate of 82 no acute ischemic changes noted there is a negative flexion lead aVF with an indeterminate axis no conduction abnormalities
--- NOTE | 2023-05-16 15:15 | PC.NURSE ---
PT HAS HAD MULTIPLE EPISODES OF WRETCHING AND VOMITING. SHE REPORTS INCREASED NAUSEA ON A DAILY BASIS BUT IS CURRENTLY WORSE.
--- NOTE | 2023-05-16 16:02 | PC.NURSE ---
PT REFUSED SCANS. MULTIPLE ATTEMPTS MADE TO OBTAIN BUT SHE IS UNABLE TO TOLERATE LAYING DOWN @ ALL.
--- NOTE | 2023-05-16 16:54 | P.HP_ITS ---
History of Present Illness *Admission Date: 05/16/23 *Reason for visit:: dizziness, syncope, intractable N/V *History of present illness: Ms. Massey is a 78-year-old female who presented to the ER for evaluation of syncope. Was brought to the ER by her brother after having an episode approx imately 4:00 this morning where she reportedly had an episode of passing out at home and waking on the floor with nausea, vomiting, dizziness. She has a long history of vertigo, chronic lung disease, severe presbycusis, diabetes, neuropathy, and Meniere's. [facility] and generally is fairly independent and goes for walks when the weather is nice. She presented to the ER with severe vertiginous symptoms, dry heaves, intractable nausea. Reportedly takes meclizine multiple times a day for her dizziness to maintain functionality. Sleeps in a recliner every night due to inability to lay flat as that makes her dizziness worse. States she got up this morning to go to the bathroom and when she was going back to her recliner she believes that is when she had her syncopal event. Fell in the doorway and awoke after being on the ground for several hours. Eventually made her way back to her recliner and this is where her brother found her this morning. She was alert and oriented x 3 and at her baseline level of mentation. She has had episodes like this before but they have never lasted this long. Does not recall losing consciousness in the past either. Workup in the ER initiated with labs and exam. Attempts made to obtain imaging of patient were unsuccessful given her inability to lay down due to dizziness and vomiting. She was noted to have pain in her lower back around her SI joint. Dizziness with head movement. Labs are relatively unremarkable with no significant kidney injury, electrolyte disturbances, or leukocytosis. Given intractable nausea and vomiting, medicine was consulted for further management as patient is unable to discharge safely home at this time. Low concern for focal neurologic injury as she has no focal neurologic deficits on exam. Received 4 mg of Zofran with no improvement, subsequent dose of 8 mg of Zofran with no resolution of nausea and vomiting. Was finally given 12 and half milligrams of Phenergan which is allowed her to rest and seems to have stopped her vomiting and improved her dizziness. Patient is hemodynamically stable and on room air. Brothers are at bedside to help give history and review of systems. Patient awoke on my exam and is pleasant and oriented to self and place. Able to move all 4 extremities. No facial asymmetry. [facility] Disclaimer: The information contained in this section may have been updated after the patient was seen, as this information can be updated by other users. Medical History (Updated 05/16/23 @ 22:40 by Naman Sandoval MD) Abnormality of lung on CXR Arrhythmia Asthma Atrial fibrillation Body aches CHF (congestive heart failure) Chronic cough COPD (chronic obstructive pulmonary disease) Cough productive of purulent sputum Dyspnea on exertion Fatigue Fever GERD (gastroesophageal reflux disease) Hearing loss of both ears HLD (hyperlipidemia) HTN (hypertension), benign Meniere's disease Post-nasal drip Sinus drainage T2DM (type 2 diabetes mellitus) Surgical History H/O breast biopsy H/O lumpectomy History of cholecystectomy Hx of tonsillectomy Family History Tuberculosis Diabetes Coronary artery disease Hyperlipidemia Kidney disease Heart attack Cancer Hypertension Social History Smoking Status: Never smoker alcohol intake: never substance use type: denies use current occupational status: retired and disabled Travel in the last 8 weeks: None housing: assisted living facility current occupational exposures/hazards: No caffeine: Yes Review of Systems Review of Systems Review of systems (narrative): 14 point review of systems performed, pertinent positives and negatives as per HPI Meds Home Medications and Allergies Home Medications Medication Instructions Recorded Confirmed Type atorvastatin 80 mg tablet 80 mg PO ONCE Cholesterol 05/30/17 05/16/23 History memantine 10 mg tablet 10 mg PO BID MEMORY 02/02/19 05/16/23 History cyanocobalamin (vitamin B-12) 1,000 mcg IM DAILY Supplement 04/22/20 05/16/23 History 1,000 mcg/mL injection solution acetaminophen 500 mg tablet 500 mg PO QID PRN PAIN 07/09/20 05/16/23 History donepezil 5 mg tablet 5 mg PO HS 12/08/21 05/16/23 History furosemide 20 mg tablet 20 mg PO DAILY 12/08/21 05/16/23 History linaclotide 290 mcg capsule 290 mcg PO DAILY 12/08/21 05/16/23 History (Linzess) pregabalin 50 mg capsule 50 mg PO HS 12/08/21 05/16/23 History sacrosidase 8,500 unit/mL oral 2 ml PO DIRECTED 12/08/21 05/16/23 History solution (Sucraid) meclizine 25 mg tablet 25 mg PO TID 05/04/22 05/16/23 History albuterol sulfate 90 mcg/actuation 2 inh inhalation BID shortness of 12/28/22 05/16/23 Rx aerosol inhaler breath or wheezing 90 days #8.5 grams fluticasone propionate 50 2 spray intranasal DAILY 90 days 12/28/22 05/16/23 Rx mcg/actuation nasal #15.8 mL spray,suspension ipratropium 0.5 mg-albuterol 3 mg 3 ml inhalation Q6H PRN shortness 03/28/23 05/16/23 Rx (2.5 mg base)/3 mL nebulization of breath or wheezing #90 mL soln aspirin 325 mg tablet,delayed 325 mg PO DAILY 05/16/23 05/16/23 History release cholecalciferol (vitamin D3) 50 50 mcg PO DAILY 05/16/23 05/16/23 History mcg (2,000 unit) capsule omeprazole 20 mg capsule,delayed 20 mg PO DAILY 05/16/23 05/16/23 History release New Prescriptions to Start Prescriptions: Allergies Allergy/AdvReac Type Severity Reaction Status Date / Time honey Allergy Severe Anaphylaxis Verified 03/23/23 14:17 adhesive [ADHESIVE] Allergy Unknown Verified 03/23/23 14:17 ceftriaxone [From ROCEPHIN] Allergy Unknown Verified 03/23/23 14:17 ciprofloxacin [From CIPRO] Allergy Unknown Verified 03/23/23 14:17 codeine [CODEINE] Allergy Unknown Verified 03/23/23 14:17 gabapentin [GABAPENTIN] Allergy Unknown Verified 03/23/23 14:17 iodine [IODINE] Allergy Unknown Verified 03/23/23 14:17 latex [LATEX] Allergy Unknown Verified 03/23/23 14:17 meloxicam [MELOXICAM] Allergy Unknown Verified 03/23/23 14:17 meperidine [MEPERIDINE] Allergy Unknown Verified 03/23/23 14:17 oxytetracycline Allergy Unknown Verified 03/23/23 14:17 [OXYTETRACYCLINE] polymyxin B [POLYMYXIN B] Allergy Unknown Verified 03/23/23 14:17 rice [RICE] Allergy Unknown Verified 03/23/23 14:17 soy [SOY] Allergy Unknown Verified 03/23/23 14:17 venlafaxine [VENLAFAXINE] Allergy Unknown Verified 03/23/23 14:17 Iodinated Contrast Media Allergy Verified 05/16/23 14:55 BEEF Allergy Unknown ITCHING Uncoded 03/23/23 14:17 FISH. Allergy Unknown UNK RXN-ON Uncoded 03/23/23 14:17 ALLERGY TESTING ONLY From EGGS (FOOD/DRUG) Allergy Unknown DIARRHEA/NA Uncoded 03/23/23 14:17 USEA/VOMITI NG From MILK (FOOD/DRUG) Allergy Unknown DIARRHEA Uncoded 03/23/23 14:17 POTATOES Allergy Unknown BLOATING Uncoded 03/23/23 14:17 SEVELLA Allergy Unknown OUT OF IT Uncoded 03/23/23 14:17 VIOXX Allergy Unknown RASH/ITCHIN Uncoded 03/23/23 14:17 G WHEAT Allergy Unknown ITCHING IN Uncoded 03/23/23 14:17 MOUTH/NAUSEA Exam Data for Last 24 hours Vital signs and Labs for Last 24 Hours: Temp Pulse Resp BP Pulse Ox O2 Del Method 97.7 F 68 20 143/75 H 95 Room Air 05/16/23 14:09 05/16/23 15:00 05/16/23 15:00 05/16/23 14:09 05/16/23 15:00 05/16/23 14:09 Laboratory Results - last 24 hr 05/16/23 14:00: WBC 8.2, RBC 5.56 H, Hgb 15.6, Hct 47.8 H, MCV 85.9, MCH 28.1, MCHC 32.7, RDW 13.5, Plt Count 266, MPV 9.0, Neut % (Auto) 78.2, Lymph % (Auto) 15.7, [place] % (Auto) 5.3, Eos % (Auto) 0.3, Baso % (Auto) 0.6, Neut # (Auto) 6.4, Lymph # (Auto) 1.3, [place] # (Auto) 0.4, Eos # (Auto) 0.0, Baso # (Auto) 0.1, PT 10.6, INR 0.98, D-Dimer 1.28 H, Sodium 140, Potassium 4.0, Chloride 106, Carbon Dioxide 28, Anion Gap 10.0, BUN 12, Creatinine 0.70, Estimated Creat Clear 78, Estimated GFR 81, Est GFR ( Amer) 98, Glucose 163 H, Calcium 9.3, Total Bilirubin 1.0, AST 30, ALT 23, Alkaline Phosphatase 136 H, Total Creatine Kinase 55, Total Protein 7.3, Albumin 4.0, Globulin 3.3 H, Albumin/Globulin Ratio 1.2 I & O for Last 24 hours: Intake & Output 05/13/23 05/14/23 05/15/23 05/16/23 23:59 23:59 23:59 23:59 Weight 104.326 kg Constitutional Constitutional: no acute distress and obese *Routine HEENT Exam Head: Present normocephalic Eye: Present EOMI and PERRL ENT: Present mucous membranes moist *Routine Neck Exam Neck: Present supple; Absent lymphadenopathy *Routine Respiratory Exam Respiratory: Present CTA bilaterally *Routine Cardiovascular Exam Cardiovascular: Present RRR *Routine Abdominal Exam Abdominal: Present soft and normoactive bowel sounds; Absent tenderness *Routine Rectal Exam Rectal:: deferred *Routine Genitalia Exam Genitalia:: deferred *Routine Extremities Exam Extremities: Absent cyanosis, clubbing or edema *Routine Skin Exam Skin: Present warm; Absent rash *Routine Neurological Exam Neurological: Present alert, oriented X3, CN II-XII intact and moving all e xtremities; Absent altered mental status Assessment and Plan *Assessment and plan (1) Vomiting: Status: Acute Category: Medical Code(s): R11.10 - Vomiting, unspecified (2) Meniere's disease: Status: Acute Category: Medical Code(s): H81.09 - Meniere's disease, unspecified ear (3) Vertigo: Status: Acute Category: Medical Code(s): R42 - Dizziness and giddiness (4) Nausea & vomiting: Status: Acute Qualifiers: Vomiting Intractability: unspecified Vomiting type: unspecified Qualified Code(s): R11.2 - Nausea with vomiting, unspecified Category: Medical Code(s): R11.2 - Nausea with vomiting, unspecified (5) Class 1 obesity: Status: Acute Category: Medical Code(s): E66.9 - Obesity, unspecified (6) COPD (chronic obstructive pulmonary disease): Status: Chronic Category: Medical Code(s): J44.9 - Chronic obstructive pulmonary disease, unspecified (7) GERD (gastroesophageal reflux disease): Status: Chronic Category: Medical Code(s): K21.9 - Gastro-esophageal reflux disease without esophagitis (8) Obesity (BMI 30-39.9): Status: Acute Category: Medical Code(s): E66.9 - Obesity, unspecified Plan 78-year-old female who presented with intractable nausea and vomiting. Attempts to manage vomiting in the ER were unsuccessful. Medicine consulted, discussed case with the ER physician who request admission for further treatment of her nausea and potential imaging if able to lay flat in the morning. Medicine agreed to admit for further management. Problems addressed as follows: Vertigo Intractable nausea and vomiting History of M?ni?re's -Continue Zofran 4 mg every 6 hours as needed IV for nausea and vomiting. Will initiate scopolamine patch every 72 hours. Placed in the ER with some improvement in symptoms. -Differential includes otolith dysfunction, exacerbation of M?ni?re's, vestibular stroke. Will attempt to obtain CT or MRI of head in the morning if dizziness improved and able to lay flat. Reportedly has allergy to iodine, will need to avoid contrast given previous history of allergies per her report -PT and OT consulted to assist with management and evaluation for safety to go home. Request assistance with Ana maneuver to help with otolith realignment. -Kidney function and electrolytes normal. CBC, CMP, magnesium ordered for the morning. Continue DuoNebs every 6 hours as needed for COPD/chronic lung disease History of diabetes: A1c pending for the morning. Glucose 163 on presentation. Will consider sliding scale insulin and fingersticks ACHS if A1c diagnostic for diabetes Continue Lipitor 80 mg nightly for hyperlipidemia Continue donepezil 5 mg nightly and memantine 10 mg twice daily for cognitive impairment Continue pantoprazole 40 mg nightly for chronic GERD Full code Regular diet Holding anticoagulation in the setting of fall and inability to scan head in the remote chance she has intracranial bleed.
[2023-05-16] MEDS: LACTATED RINGERS 1000ML 1,000 ML 250 ML IV (17:06)
[2023-05-16] MEDS: PROMETHAZINE HCL 25MG/ML 1ML VIAL 12.5 MG IV (17:06)
[2023-05-16] MEDS: SODIUM CHLORIDE 0.9% 25ML BAG 25 ML IV (17:06)
[2023-05-16] MEDS: SCOPOLAMINE 1.5MG/72HRS PATCH 1 EACH TD (17:16)
--- NOTE | 2023-05-16 17:47 | PC.NURSE ---
GROUND SUPPORT EQUIPMENT MECHANIC NOTIFIED OF ADMISSION
--- NOTE | 2023-05-16 18:32 | PC.NURSE ---
report called to [facility] 2nd floor
--- NOTE | 2023-05-16 18:58 | PC.NURSE ---
Patient arrived to floor via stretcher from ED at 18:58.
[2023-05-16] MEDS: PANTOPRAZOLE 40MG TABLET 40 MG PO (20:19)
[2023-05-16] MEDS: ACETAMINOPHEN 325MG TAB 650 MG PO (20:19)
[2023-05-16] MEDS: MECLIZINE 25MG TABLET 25 MG PO (20:19)
[2023-05-16] MEDS: MEMANTINE 10MG TABLET 10 MG PO (20:19)
[2023-05-16] MEDS: DONEPEZIL 5MG TAB 5 MG PO (20:19)
[2023-05-16 21:41] LABS: POC Glucose,Bedside 124 (70-110)
[2023-05-17 04:00] VITALS: BP 112/55; PULSE 58; RESP 14; TEMP 36.9; O2SAT 93; BMI 34.0
--- NOTE | 2023-05-17 04:27 | PC.NURSE ---
Pt is Alert and oriented at times, had moments of forgetfulness during admission. Brother (POA) helped to finish admission. Pt is tolerating RA well at 93%. Pt had a fall at home and C/O pain in lower back and [place] , treated per MAR for pain. Pt has small skin tear to right elbow. Pt denies N/V since admission. Pt denies pain and needs at this time.
[2023-05-17 05:12] LABS: POC Glucose,Bedside 100 (70-110)
[2023-05-17] MEDS: ALBUTEROL-HFA 90MCG/PUFF INHALER 8GM 2 PUFF IH (06:17)
[2023-05-17 06:56] LABS: Basophils # 0.1 K/mm3 (0-0.2); Basophils % 0.8 % (0.1-2.0); Eosinophils # 0.2 K/mm3 (0.0-0.4); Lymphocytes # 1.9 K/mm3 (0.7-4.5)
[2023-05-17 07:06] LABS: Eosinophils % 2.8 % (0.1-12.0); Hematocrit 42.5 % (37.0-47.0); Lymphocytes % 28.8 % (10-50); Mean Corpuscular HGB Conc 32.4 g/dL (31.8-35.4); Mean Corpuscular Hemoglobin 27.7 pg (27.0-31.2); Mean Corpuscular Volume 85.4 fl (81-99); Mean Platelet Volume 9.1 fl (7.4-10.4); Monocytes # 0.4 K/mm3 (0.1-1.0); Neutrophils % 61.7 % (37.0-80.0); Platelet Count 253 K/mm3 (142-424); Red Blood Count 4.97 M/mm3 (4.20-5.40); Red Cell Distribution Width 13.5 % (11.5-17.5); White Blood Count 6.5 K/mm3 (4.8-10.8)
[2023-05-17 07:10] LABS: Hemoglobin 13.8 g/dL (12.2-16.2)
[2023-05-17 07:28] LABS: Chloride 109 mmol/L (98-107); Potassium 3.5 mmoL/L (3.5-5.1); Sodium 138 mmol/L (136-145)
[2023-05-17 07:30] LABS: Alanine Aminotransferase 16 U/L (12-78); Aspartate Amino Transferase 25 U/L (14-36); Blood Urea Nitrogen 14 mg/dl (7-17); Creatinine Clearance Estimated 76 mL/min (50-200); Estimated Glomerular Filt Rate 70 ml/min (>60); GFR (African American) 84 ML/MIN (>60)
[2023-05-17 07:31] LABS: Albumin Level 3.4 g/dl (3.5-5.0); Albumin/Globulin Ratio 1.2 (1.1-1.8); Alkaline Phosphatase 113 U/L (38-126); Anion Gap 0.5 mEq/L (5-15); Bilirubin,Total 1.1 mg/dl (0.2-1.3); Calcium 8.9 mg/dl (8.4-10.2); Carbon Dioxide 32 mmol/L (22.0-30.0); Globulin 2.9 g/dL (1.3-3.2); Glucose 104 mg/dl (74-100); Magnesium 2.2 mg/dl (1.6-2.3); Total Protein,Serum 6.3 g/dl (6.3-8.2)
--- NOTE | 2023-05-17 07:48 | HMH.PHAINT1 ---
Pharmacy Intervention Comments: Verified all home medications using external fill history and spoke with patient at bedside.
[2023-05-17 08:00] VITALS: BP 122/61; PULSE 71; RESP 20; TEMP 36.8; O2SAT 100
[2023-05-17 08:00] LABS: Thyroid Stimulating Hormone 0.65 uIU/mL (0.465-4.68)
--- NOTE | 2023-05-17 09:16 | HMH.OTEV ---
OT Inpatient Evaluation Rehab OT IP Evaluation Start: 05/16/23 22:41 Freq: ONCE Status: Active Protocol: Document 05/17/23 09:08 MANUELITOANGELA (Rec: 05/17/23 09:16 [email or web address] [id number]) Rehab OT IP Assessment Subjective History Ms. Massey is a 78-year-old female who presented to the ER for evaluation of syncope. Was brought to the ER by her brother after having an episode approximately 4:00 this morning where she reportedly had an episode of passing out at home and waking on the floor with nausea, vomiting, dizziness. She has a long history of vertigo, chronic lung disease, severe presbycusis, diabetes, neuropathy, and Meniere's. She lives by herself in the [facility] and generally is fairly independent and goes for walks when the weather is nice. She presented to the ER with severe vertiginous symptoms, dry heaves, intractable nausea. Reportedly takes meclizine multiple times a day for her dizziness to maintain functionality. Sleeps in a recliner every night due to inability to lay flat as that makes her dizziness worse. States she got up this morning to go to the bathroom and when she was going back to her recliner she believes that is when she had her syncopal event. Fell in the doorway and awoke after being on the ground for several hours. Eventually made her way back to her recliner and this is where her brother found her this morning. She was alert and oriented x 3 and at her baseline level of mentation. She has had episodes like this before but they have never lasted this long. Does not recall losing consciousness in the past either. Workup in the ER initiated with labs and exam. Attempts made to obtain imaging of patient were unsuccessful given her inability to lay down due to dizziness and vomiting. She was noted to have pain in her lower back around her SI joint . Dizziness with head movement. Labs are relatively unremarkable with no significant kidney injury, electrolyte disturbances, or leukocytosis. Given intractable nausea and vomiting, medicine was consulted for further management as patient is unable to discharge safely home at this time. Low concern for focal neurologic injury as she has no focal neurologic deficits on exam. Received 4 mg of Zofran with no improvement, subsequent dose of 8 mg of Zofran with no resolution of nausea and vomiting. Was finally given 12 and half milligrams of Phenergan which is allowed her to rest and seems to have stopped her vomiting and improved her dizziness. Patient is hemodynamically stable and on room air. Brothers are at bedside to help give history and review of systems. Patient awoke on my exam and is pleasant and oriented to self and place. Able to move all 4 extremities . No facial asymmetry. Patient lives alone in the single story cottages at [facility]. Patient stated to use a RW and cane to ambulate within home. Patient uses transportation services for doctor appts and family members to assist with grocery shopping. Independent with ADLs and fx'l mobility. Subjective I can get up. Assisted Patient to restroom for transfers, ambulation, toileting and LB drsg. Patient completed all tasks with CGA for safety. Objective Patient Orientation Person,Name,Age,Birthday,Year Right Upper Extremity Gross ROM WFL Left Upper Extremity Gross ROM WFL Bed Mobility bed mobility - supine/sit Assist Level Contact Guard/Hand Hold Transfer Training Sit/Stand/Pivot Transfer Assist Level Contact Guard/Hand Hold Chair Transfer Ability Contact Guard/Hand Hold Chair Transfer Technique Sit to/from Ambulatory Chair Transfer Assistive Devices Rolling Walker Lower Body Dressing Ability Standby Assistance Rehab OT IP prob,goals,plan Problems Date of Evaluation: 05/17/23 OT IP Problems Bed Mobility,Transfers,Balance ,Self care,Safety Rehab Potential Rehab Potential Good Equipment Needs Assistive Devices Rolling / Wheeled Walker Plan OT intervention Plan Bed Mobility,Transfers,Balance ,Self care,Safety,Therapeutic Exercise OT Plan Frequency Daily Duration LOS Discharge Goals Bed Mobility Ability Assistance x1 Sit to Stand Chair Transfer Ability Supervision/Stand by Chair Transfer Ability Supervision/Stand by Chair Transfer Technique Sit to/from Ambulatory Chair Transfer Assistive Devices Rolling Walker Performing Toilet Hygiene Ability Standby Assistance Overall Commode/Toilet Transfer Ability Standby Assistance Commode/Toilet Transfer Technique Sit to/from Ambulatory Discharge Plan OT Discharge Plan Recommend HH services after medical d/c. Patient's functional mobility is performed at a higher level. Patient to continue to be seen here at [facility] to improve overall safety. Eval Complexity Eval Charge Codes 72982 - Low Complexity PHYSICIAN CERTIFICATION: I certify the specified therapy services for Charley R Long are required, authorized, and reviewed every 30 days.
[2023-05-17] MEDS: MEMANTINE 10MG TABLET 10 MG PO ×2 (09:20→22:00)
[2023-05-17] MEDS: FLUTICASONE PROP 50MCG NASAL SPRAY 16GM 2 SPRAY NS (09:20)
[2023-05-17] MEDS: MECLIZINE 25MG TABLET 25 MG PO ×3 (09:20→22:00)
--- NOTE | 2023-05-17 09:33 | DIET.NUTRFU ---
This RD spoke to patient to review allergies, patient has multiple food allergies on chart. Some reactions are more severe then others. Patient is well educated on her allergies, she does eat some of them in small portions and not often. She eat oats, even if they are not marked gluten free she does eat small amounts of bread and small amounts of potatoes. She does avoid beef and fish more for preference. 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 I did reviewed lunch and she choose chicken salad and fruit with keira and delisa, she was made aware the chicken salad has dubose (milk product) and she approved it. Left her dinner menu for her to choose meal. Based on interview patient can pick and choose, she is well educated on allergies.
[2023-05-17 09:43] VITALS: BMI 34.0
--- NOTE | 2023-05-17 10:01 | SW/DCPLANNER ---
Addendum entered by Alem Red 05/18/23 11:52: Misty zeng/ [facility] stated that services will begin this week for this patient. Original Note: I spoke w/ this patient regarding plans once medically stable for discharge. PT/OT evaluated patient and recommended returning home w/ home health services at time of discharge. Patient is agreeable to home health and prefers to use [facility]. I will set up home health services at time of discharge. Patient stated that she has all appropriate DME at home.
--- NOTE | 2023-05-17 10:14 | HMH.PTEV ---
Physical Therapy Evaluation Rehab PT IP Evaluation Start: 05/16/23 22:41 Freq: ONCE Status: Active Protocol: Document 05/17/23 10:07 RAFAEL (Rec: 05/17/23 10:14 RAFAEL [email or web address]) Subjective/History History History Per H&P: Ms. Massey is a 78-year-old female who presented to the ER for evaluation of syncope. Was brought to the ER by her brother after having an episode approximately 4:00 this morning where she reportedly had an episode of passing out at home and waking on the floor with nausea, vomiting, dizziness. She has a long history of vertigo, chronic lung disease, severe presbycusis, diabetes, neuropathy, and Meniere's. She lives by herself in the [facility] and generally is fairly independent and goes for walks when the weather is nice. She presented to the ER with severe vertiginous symptoms, dry heaves, intractable nausea. Reportedly takes meclizine multiple times a day for her dizziness to maintain functionality. Sleeps in a recliner every night due to inability to lay flat as that makes her dizziness worse. States she got up this morning to go to the bathroom and when she was going back to her recliner she believes that is when she had her syncopal event. Fell in the doorway and awoke after being on the ground for several hours. Eventually made her way back to her recliner and this is where her brother found her this morning. She was alert and oriented x 3 and at her baseline level of mentation. She has had episodes like this before but they have never lasted this long. Does not recall losing consciousness in the past either. Workup in the ER initiated with labs and exam. Attempts made to obtain imaging of patient were unsuccessful given her inability to lay down due to dizziness and vomiting. She was noted to have pain in her lower back around her SI joint . Dizziness with head movement. Labs are relatively unremarkable with no significant kidney injury, electrolyte disturbances, or leukocytosis. Given intractable nausea and vomiting, medicine was consulted for further management as patient is unable to discharge safely home at this time. Subjective Subjective Pt agreeable to PT evaluation. PLOF per pt report: Pt lives alone in single-story home at the [facility]. IND with ADLs and functional mobility. Intermittent use of RW for community ambulation and uneven terrain. Not driving. New diagnosis of cancer in past 12 No months? Rehab PT IP Eval Objective Appearance Patient Behavior Appropriate,Cooperative Patient Orientation Person,Place,Situation Difficulty following instructions none Speech Pattern Clear Ambulation Patient Able to Ambulate Yes Ambulation Observation IP General Gait Pattern Observation Wide Based Gait Ambulation Distance (feet) 20 Ambulation Assistive Device Rolling Walker Ambulation Ability Supervision/Stand by Balance Ability to Arise Able, w/o using arms Sitting Balance Steady, safe Standing Balance Steady, wide stance Transfers Bed Transfer Ability Supervision/Stand by Chair Transfer Ability Supervision/Stand by Sit to Stand Bed Transfer Ability Supervision/Stand by Rehab PT IP prob,goals,plan Problems Date of Evaluation: 05/17/23 PT IP Problems Transfers,Gait,Balance,Safety Rehab Potential Rehab Potential Good Equipment Needs Assistive Devices Rolling / Wheeled Walker Plan PT Intervention Plan Bed Mobility,Transfers,Gait, Balance,Safety,Therapeutic Exercise Other Intervention Plan 1-2 times PT Plan Frequency Daily Duration LOS Discharge Goals Bed Transfer Ability Independent Sit to Stand Chair Transfer Ability Independent Ambulation Assistive Device Rolling Walker Ambulation Distance (feet) 30 Discharge Plan PT Discharge Plan Pt safe to d/c home when deemed medically necessary d/t current level of mobility, home set-up, and nearby family support. Pt would benefit from skilled PT while at [facility] to prevent further functional decline and maximize safety with mobility. Pt would benefit from Home Health services to address deficits. Eval Complexity Eval Charge Codes 29001 - High Complexity PHYSICIAN CERTIFICATION: I certify the specified therapy services for Charley Massey are required, authorized, and reviewed every 30 days.
[2023-05-17 11:38] LABS: Hemoglobin A1C 6.2 % (4.0-6.0)
[2023-05-17 11:48] LABS: POC Glucose,Bedside 91 (70-110)
[2023-05-17] MEDS: ACETAMINOPHEN 325MG TAB 650 MG PO ×2 (12:00→22:25)
[2023-05-17] MEDS: SCOPOLAMINE 1.5MG/72HRS PATCH 1 EACH TD (12:00)
[2023-05-17 16:00] VITALS: BP 130/69; PULSE 62; RESP 18; TEMP 36.9; O2SAT 96
--- NOTE | 2023-05-17 16:52 | P.PN_ITS ---
Subjective *Date: 05/17/23 *Time: 17:12 Interval history: Patient showing clinical improvement. No vomiting in 24 hours. Afebrile overnight. Stable on room air. Dizziness improving but still severely dizzy when she lays flat. Attempt to obtain MRI this morning unsuccessful. Continues to require inpatient management. Working with therapy. Medical Exam Vital signs and Labs for Last 24 Hours: Vital Signs Temp Pulse Pulse Resp BP BP Pulse Ox 05/17/23 15:00 05/17/23 13:00 05/17/23 11:00 05/17/23 09:00 05/17/23 08:00 05/17/23 08:00 98.3 F 71 20 122/61 100 05/17/23 04:00 98.5 F 58 L 14 112/55 L 93 L 05/17/23 06:45 05/17/23 04:51 05/17/23 02:49 05/17/23 01:00 05/16/23 23:00 05/16/23 20:00 05/16/23 21:00 05/16/23 19:00 05/16/23 18:58 05/16/23 18:58 97.6 F 60 16 116/52 L 98 05/16/23 19:01 98.1 F 94 H 20 133/81 05/16/23 18:00 63 22 113/57 L 93 L 05/16/23 17:30 64 22 116/56 L 94 L 05/16/23 17:15 66 16 137/48 L 97 O2 Del Method O2 Flow Rate 05/17/23 15:00 Room Air 05/17/23 13:00 Room Air 05/17/23 11:00 Room Air 05/17/23 09:00 Room Air 05/17/23 08:00 Room Air 05/17/23 08:00 Room Air 05/17/23 04:00 Room Air 05/17/23 06:45 Room Air 05/17/23 04:51 Room Air 05/17/23 02:49 Room Air 05/17/23 01:00 Room Air 05/16/23 23:00 Room Air 05/16/23 20:00 Room Air 05/16/23 21:00 Room Air 05/16/23 19:00 Room Air 05/16/23 18:58 Room Air 05/16/23 18:58 Room Air 05/16/23 19:01 Room Air 05/16/23 18:00 Nasal Cannula 3 05/16/23 17:30 Nasal Cannula 3 05/16/23 17:15 Intake and Output 05/17/23 05/17/23 05/17/23 07:59 15:59 23:59 Intake Total 1240 / 1750 510 / 1750 Output Total 0 / 0 Balance 1240 / 1750 510 / 1750 Intake: Intake, Oral Amount 240 / 750 510 / 750 Intake, Total IV Amount 1000 / 1000 Lactated Ringers 1000ML 1,000 1000 / 1000 ml @ 250 mls/hr IV .Q4H [facility] Rx# :[id number] Output: Output, Urine Amount 0 / 0 Other: Number of Unmeasured Voids 1 Weight 102.05 kg 102 kg Patient Weight 05/17/23 23:59 Weight 102 kg Laboratory Results - last 24 hr 05/16/23 21:21: POC Glucose 124 H 05/17/23 05:05: POC Glucose 100 05/17/23 06:20: WBC 6.5, RBC 4.97, Hgb 13.8 D, Hct 42.5, MCV 85.4, MCH 27.7, MCHC 32.4, RDW 13.5, Plt Count 253, MPV 9.1, Neut % (Auto) 61.7, Lymph % (Auto) 28.8, [place] % (Auto) 6.0, Eos % (Auto) 2.8, Baso % (Auto) 0.8, Neut # (Auto) 4.0, Lymph # (Auto) 1.9, [place] # (Auto) 0.4, Eos # (Auto) 0.2, Baso # (Auto) 0.1, Sodium 138, Potassium 3.5, Chloride 109 H, Carbon Dioxide 32 H, Anion Gap 0.5 L, BUN 14, Creatinine 0.80, Estimated Creat Clear 76, Estimated GFR 70, Est GFR ( Amer) 84, Glucose 104 H D, Hemoglobin A1c 6.2 H, Calcium 8.9, Magnesium 2.2, Total Bilirubin 1.1, AST 25, ALT 16 D, Alkaline Phosphatase 113, Total Protein 6.3, Albumin 3.4 L D, Globulin 2.9, Albumin/Globulin Ratio 1.2, TSH 0.65 05/17/23 11:40: POC Glucose 91 I & O for Labs for Last 24 Hours: Intake & Output 05/14/23 05/15/23 05/16/23 05/17/23 23:59 23:59 23:59 23:59 Intake Total 1750 / 1750 Output Total 0 / 0 Balance 1750 / 1750 Weight 102.058 kg 102 kg Constitutional: Present no acute distress, obese, chronically ill appearing and cooperative Head: Present atraumatic and normocephalic ENT: Present normal exam Comment:: Nystagmus when looks to the left Neck: Present normal inspection Respiratory: Present normal respiratory effort; Absent rhonchi, wheezes or crackles Cardiac: Present Reg Rate and Rhythm GI: Present normal bowel sounds; Absent tenderness Extremities: Present normal inspection and full ROM Skin: Present intact; Absent erythema Neuro: Present Cranial Nerve 2-12 Intact, No Lateralizing Findings, Grossly Intact, alert, awake, oriented x 3 and moves all extremities; Absent Weakness Comment:: Dizzy when turns head [id number]. No dysarthria or dyskinesia Assessment and Plan *Assessment and plan (1) Vomiting: Status: Acute Category: Medical Code(s): R11.10 - Vomiting, unspecified (2) Meniere's disease: Status: Acute Category: Medical Code(s): H81.09 - Meniere's disease, unspecified ear (3) Vertigo: Status: Acute Category: Medical Code(s): R42 - Dizziness and giddiness (4) Nausea & vomiting: Status: Acute Qualifiers: Vomiting Intractability: unspecified Vomiting type: unspecified Qualified Code(s): R11.2 - Nausea with vomiting, unspecified Category: Medical Code(s): R11.2 - Nausea with vomiting, unspecified (5) Class 1 obesity: Status: Acute Category: Medical Code(s): E66.9 - Obesity, unspecified (6) COPD (chronic obstructive pulmonary disease): Status: Chronic Category: Medical Code(s): J44.9 - Chronic obstructive pulmonary disease, unspecified (7) GERD (gastroesophageal reflux disease): Status: Chronic Category: Medical Code(s): K21.9 - Gastro-esophageal reflux disease without esophagitis (8) Obesity (BMI 30-39.9): Status: Acute Category: Medical Code(s): E66.9 - Obesity, unspecified Plan 78-year-old female who presented with intractable nausea and vomiting. Attempts to manage vomiting in the ER were unsuccessful. Medicine consulted, discussed case with the ER physician who request admission for further treatment of her nausea and potential imaging if able to lay flat in the morning. Medicine agreed to admit for further management. Symptoms appear to be showing some slight improvement. Attempt to obtain MRI this morning unsuccessful due to inability to lay flat. Discussed attempting transfer for sedated MRI, attempted transfer unsuccessful given clinical improvement in patient's condition and wait lists at tertiary centers. Significant discussion with patient (see ACP note), will observe for 24 more hours. If continues to improve clinically with no worsening neurologic symptoms, anticipate discharge home with close outpatient follow-up with neurotology/ENT at . Problems addressed as follows: Vertigo Intractable nausea and vomiting History of M?ni?re's -Continue Zofran 4 mg every 6 hours as needed IV for nausea and vomiting. No Zofran needed in 24 hours. Continue scopolamine patch every 72 hours. -Differential includes otolith dysfunction, exacerbation of M?ni?re's, vestibular stroke. Failed attempt to obtain head imaging. Clinically improving however. Extensive discussion with patient, as we are unable to transfer at this time and she is improving, we will observe for 24 more hours. Anticipate close follow-up and referral to neurotology at for further management as an outpatient. Consulted ENT at , anticipate follow-up in the next 1 to 2 weeks. - PT and OT consulted to assist with management and evaluation for safety to go home. Patient ambulating with walker today. Anticipate discharge home with assistance from her brother -Kidney function and electrolytes normal. CBC, CMP, magnesium ordered for the morning. Continue DuoNebs every 6 hours as needed for COPD/chronic lung disease History of diabetes: A1c 6.2, prediabetic. Discontinue fingersticks. Continue Lipitor 80 mg nightly for hyperlipidemia Continue donepezil 5 mg nightly and memantine 10 mg twice daily for cognitive impairment Continue pantoprazole 40 mg nightly for chronic GERD Full code Regular diet Holding anticoagulation
--- NOTE | 2023-05-17 16:52 | EXP.EVENT.NO ---
Advance care planning note: Active diagnosis: History of M?ni?re's disease, recurrent pneumonia, intractable nausea and vomiting, hypertension, dementia, prediabetes The patient's active diagnoses are of sufficient risk that focused discussion on advanced care planning is indicated in order to allow the patient to thoughtfully consider personal goals of care; and, if situations arise that prevent the ability to personally give input, to ensure appropriate representation of their personal desires through documentation or informed surrogate decision makers. Discussion: Persons present and participating in discussion: Patient, 2 brothers Discussion: Extensive discussion about goals of care. Discussed patient's progressive condition over the past 30 years. Discussed concerns for exacerbation of M?ni?re's versus possible stroke and limited treatment options. Discussed further workup. Patient interested in improving quality of life and just does not want to be dizzy any longer. Has been searching for answers for over 30 years for condition. Would like to pursue further workup including possible transfer. Attempts to transfer unsuccessful today. Shared decision making about goals moving forward. Patient comfortable with plan of seeing how she does over the next 24 hours, if remains clinically stable, close follow-up as an outpatient. Already has POA in place with both of her brothers. Comfortable at this time. Seeing clinical improvement. Time spent: Total time spent [id number] in education and discussion directly related to advance care plannin minutes
--- NOTE | 2023-05-17 18:54 | PC.NURSE ---
PT HAS DONE WELL THIS SHIFT. ONLY COMPLAINT WAS A HEADACHE, TREATED PER MAR WITH RELIEF. PT STATED SHES BEEN HAVING SOME NAUSEA BUT HAS DENIED BEING NAUSEAS EVERYTIME THIS NURSE HAS CHECKED ON PT. PTS BROTHERS HAVE BEEN AT BS ALL DAY. NO CONCERNS AT THIS TIME, CB WITHIN REACH.
[2023-05-17 20:00] VITALS: BP 134/52; PULSE 63; RESP 17; TEMP 37; O2SAT 92
[2023-05-17] MEDS: DONEPEZIL 5MG TAB 5 MG PO (22:00)
[2023-05-17] MEDS: ATORVASTATIN 40MG TABLET 80 MG PO (22:00)
[2023-05-17] MEDS: PANTOPRAZOLE 40MG TABLET 40 MG PO (22:00)
[2023-05-18] VITALS: BP 145/72; PULSE 64; RESP 16; TEMP 36.8; O2SAT 93
[2023-05-18 04:00] VITALS: BP 153/64; PULSE 61; RESP 16; TEMP 36.7; O2SAT 96; BMI 34.9
[2023-05-18 06:12] LABS: Basophils % 0.4 % (0.1-2.0); Eosinophils # 0.3 K/mm3 (0.0-0.4); Eosinophils % 4.4 % (0.1-12.0); Hematocrit 42.4 % (37.0-47.0); Lymphocytes # 1.9 K/mm3 (0.7-4.5); Lymphocytes % 29.1 % (10-50); Mean Corpuscular Hemoglobin 29.1 pg (27.0-31.2); Mean Platelet Volume 8.8 fl (7.4-10.4); Monocytes # 0.3 K/mm3 (0.1-1.0); Monocytes % 4.4 % (1.7-9.3); Neutrophils # 4.1 K/mm3 (1.8-7.8); Neutrophils % 61.7 % (37.0-80.0); Platelet Count 239 K/mm3 (142-424); Red Blood Count 4.82 M/mm3 (4.20-5.40); Red Cell Distribution Width 13.8 % (11.5-17.5); White Blood Count 6.7 K/mm3 (4.8-10.8)
[2023-05-18 06:14] LABS: Chloride 110 mmol/L (98-107); Potassium 4.3 mmoL/L (3.5-5.1); Sodium 140 mmol/L (136-145)
[2023-05-18] MEDS: ALBUTEROL-HFA 90MCG/PUFF INHALER 8GM 2 PUFF IH (06:15)
[2023-05-18 06:17] LABS: Alanine Aminotransferase 17 U/L (12-78); Albumin Level 3.4 g/dl (3.5-5.0); Albumin/Globulin Ratio 1.1 (1.1-1.8); Alkaline Phosphatase 109 U/L (38-126); Anion Gap 4.3 mEq/L (5-15); Aspartate Amino Transferase 29 U/L (14-36); Bilirubin,Total 0.5 mg/dl (0.2-1.3); Blood Urea Nitrogen 20 mg/dl (7-17); Calcium 8.8 mg/dl (8.4-10.2); Carbon Dioxide 30 mmol/L (22.0-30.0); Creatinine Clearance Estimated 78 mL/min (50-200); Estimated Glomerular Filt Rate 70 ml/min (>60); GFR (African American) 84 ML/MIN (>60); Globulin 3.1 g/dL (1.3-3.2); Glucose 119 mg/dl (74-100); Magnesium 2.2 mg/dl (1.6-2.3); Total Protein,Serum 6.5 g/dl (6.3-8.2)
--- NOTE | 2023-05-18 07:43 | P.DS_ITS ---
General Admission date:: 05/16/23 Discharge date: 05/18/23 HPI HPI HPI: Ms. Massey is a 78-year-old female who presented to the ER for evaluation of syncope. Was brought to the ER by her brother after having an episode approximately 4:00 this morning where she reportedly had an episode of passing out at home and waking on the floor with nausea, vomiting, dizziness. She has a long history of vertigo, chronic lung disease, severe presbycusis, diabetes, neuropathy, and Meniere's. She lives by herself in the [facility] and generally is fairly independent and goes for walks when the weather is nice. She present ed to the ER with severe vertiginous symptoms, dry heaves, intractable nausea. Reportedly takes meclizine multiple times a day for her dizziness to maintain functionality. Sleeps in a recliner every night due to inability to lay flat as that makes her dizziness worse. States she got up this morning to go to the bathroom and when she was going back to her recliner she believes that is when she had her syncopal event. Fell in the doorway and awoke after being on the ground for several hours. Eventually made her way back to her recliner and this is where her brother found her this morning. She was alert and oriented x 3 and at her baseline level of mentation. She has had episodes like this before but they have never lasted this long. Does not recall losing consciousness in the past either. Workup in the ER initiated with labs and exam. Attempts made to obtain imaging of patient were unsuccessful given her inability to lay down due to dizziness and vomiting. She was noted to have pain in her lower back around her SI joint. Dizziness with head movement. Labs are relatively unremarkable with no significant kidney injury, electrolyte disturbances, or leukocytosis. Given intractable nausea and vomiting, medicine was consulted for further management as patient is unable to discharge safely home at this time. Low concern for focal neurologic injury as she has no focal neurologic deficits on exam. Received 4 mg of Zofran with no improvement, subsequent dose of 8 mg of Zofran with no resolution of nausea and vomiting. Was finally given 12 and half milligrams of Phenergan which is allowed her to rest and seems to have stopped her vomiting and improved her dizziness. Patient is hemodynamically stable and on room air. Brothers are at bedside to help give history and review of systems. Patient awoke on my exam and is pleasant and oriented to self and place. Able to move all 4 extremities. No facial asymmetry. Hospital Course Hospital Course Hospital Course: 78-year-old female who presented with intractable nausea and vomiting. Attempts to manage vomiting in the ER were unsuccessful. Medicine consulted, discussed case with the ER physician who request admission for further treatment of her nausea and potential imaging if able to lay flat in the morning. Medicine agreed to admit for further management. Symptoms appear to be showing some slight improvement. Attempt to obtain MRI this morning unsuccessful due to inability to lay flat. Discussed attempting transfer for sedated MRI, attempted transfer unsuccessful given clinical improvement in patient's condition and wait lists at tertiary centers. Significant discussion with patient (see ACP note), will observe for 24 more hours. If continues to improve clinically with no worsening neurologic symptoms, anticipate discharge home with close outpatient follow-up with neurotology/ENT at . Problems addressed as follows: Vertigo Intractable nausea and vomiting History of M?ni?re's -Patient admitted for vertigo and concern for possible stroke. Multiple attempts to obtain MRI of head and CT of head were unsuccessful due to patient's inability to lay flat. Given resolution of her symptoms, longstanding history of many years, low concern at this time for acute stroke. Treated with Zofran during admission for nausea. Nausea and vomiting resolved and she was free of symptoms for 48 hours prior to discharge. Recommend continuing scopolamine patch, patch in place at discharge. -Differential includes otolith dysfunction, exacerbation of M?ni?re's, vestibular stroke. Failed attempt to obtain head imaging. Clinically improving however. Extensive discussion with patient, as we are unable to transfer at this time and she is improving, observed for 48 hours with improvement in symptoms. Episode consistent with previous episodes of M?ni?re's disease where she will have flares for 2 to 3 days and slow resolution of her dizziness. Referred for close follow-up with neurotology at for further management as an outpatient. Consulted ENT at , they contacted patient on day of discharge and appointment has been scheduled. - PT and OT consulted to assist with management and evaluation for safety to go home. Patient ambulating with walker and stable to discharge home. Family to check on her. Home health referral placed. Continue DuoNebs every 6 hours as needed for COPD/chronic lung disease History of diabetes: A1c 6.2, prediabetic. no treatment at this time, managed by diet alone. Continue Lipitor 80 mg nightly for hyperlipidemia Continue donepezil 5 mg nightly and memantine 10 mg twice daily for cognitive impairment Continue pantoprazole 40 mg nightly for chronic GERD Spent 30 minutes in discharge counseling, documentation, chart review, and direct care with patient. Exam Data for Last 24 hours Vital signs and Labs for Last 24 Hours: Temp Pulse Resp BP Pulse Ox O2 Del Method O2 Flow Rate 98.0 F 61 16 153/64 H 96 Room Air 3 05/18/23 04:00 05/18/23 04:00 05/18/23 04:00 05/18/23 04:00 05/18/23 04:00 05/18/23 06:24 05/16/23 18:00 Laboratory Results - last 24 hr 05/17/23 06:20: Hemoglobin A1c 6.2 H, TSH 0.65 05/17/23 11:40: POC Glucose 91 05/18/23 05:37: WBC 6.7, RBC 4.82, Hgb 14.0, Hct 42.4, MCV 88.0, MCH 29.1, MCHC 33.0, RDW 13.8, Plt Count 239, MPV 8.8, Neut % (Auto) 61.7, Lymph % (Auto) 29.1, [place] % (Auto) 4.4, Eos % (Auto) 4.4, Baso % (Auto) 0.4, Neut # (Auto) 4.1, Lymph # (Auto) 1.9, [place] # (Auto) 0.3, Eos # (Auto) 0.3, Baso # (Auto) 0.0, Sodium 140, Potassium 4.3 D, Chloride 110 H, Carbon Dioxide 30, Anion Gap 4.3 L, BUN 20 H D, Creatinine 0.80, Estimated Creat Clear 78, Estimated GFR 70, Est GFR ( Amer) 84, Glucose 119 H, Calcium 8.8, Magnesium 2.2, Total Bilirubin 0.5, AST 29, ALT 17, Alkaline Phosphatase 109, Total Protein 6.5, Albumin 3.4 L, Globulin 3.1, Albumin/Globulin Ratio 1.1 I & O for Last 24 hours: Intake & Output 05/15/23 05/16/23 05/17/23 05/18/23 23:59 23:59 23:59 23:59 Intake Total 2019 120 / 120 Output Total 0 / 0 0 / 0 Balance 2019 120 / 120 Weight 102.058 kg 102 kg 104.644 kg Constitutional Constitutional: no acute distress, obese, chronically ill appearing and cooperative *Routine HEENT Exam Head: Present normocephalic Eye: Present EOMI and PERRL ENT: Present mucous membranes moist Comments: Mild nystagmus when looks to right or left. *Routine Neck Exam Neck: Present supple; Absent lymphadenopathy *Routine Respiratory Exam Respiratory: Present CTA bilaterally; Absent rhonchi, wheezes or crackles *Routine Cardiovascular Exam Cardiovascular: Present RRR *Routine Abdominal Exam Abdominal: Present soft and normoactive bowel sounds; Absent tenderness *Routine Rectal Exam Patient deferred: visual exam *Routine Exam Patient deferred: external exam *Routine Extremities Exam Extremities: Absent cyanosis, clubbing or edema *Routine Skin Exam Skin: Present warm; Absent rash *Routine Neurological Exam Neurological: Present alert, oriented X3 and moving all extremities; Absent altered mental status Results Data Completed and Pending Labs on day of discharge: Labs from last 24 hours 05/18/23 05/17/23 05/17/23 05:37 11:40 06:20 WBC 6.7 RBC 4.82 Hgb 14.0 Hct 42.4 MCV 88.0 MCH 29.1 MCHC 33.0 RDW 13.8 Plt Count 239 MPV 8.8 Neut % (Auto) 61.7 Lymph % (Auto) 29.1 [place] % (Auto) 4.4 Eos % (Auto) 4.4 Baso % (Auto) 0.4 Neut # (Auto) 4.1 Lymph # (Auto) 1.9 [place] # (Auto) 0.3 Eos # (Auto) 0.3 Baso # (Auto) 0.0 Sodium 140 Potassium 4.3 D Chloride 110 H Carbon Dioxide 30 Anion Gap 4.3 L BUN 20 H D Creatinine 0.80 Estimated Creat Clear 78 Estimated GFR 70 Est GFR ( Amer) 84 Glucose 119 H POC Glucose 91 Hemoglobin A1c 6.2 H Calcium 8.8 Magnesium 2.2 Total Bilirubin 0.5 AST 29 ALT 17 Alkaline Phosphatase 109 Total Protein 6.5 Albumin 3.4 L Globulin 3.1 Albumin/Globulin Ratio 1.1 TSH 0.65 DS: Diagnosis Discharge Diagnosis (1) Vomiting: Status: Acute Code(s): R11.10 - Vomiting, unspecified (2) Meniere's disease: Status: Acute Code(s): H81.09 - Meniere's disease, unspecified ear (3) Vertigo: Status: Acute Code(s): R42 - Dizziness and giddiness (4) Nausea & vomiting: Status: Acute Code(s): R11.2 - Nausea with vomiting, unspecified Qualifiers: Vomiting Intractability: unspecified Vomiting type: unspecified Qualified Code(s): R11.2 - Nausea with vomiting, unspecified (5) Class 1 obesity: Status: Acute Code(s): E66.9 - Obesity, unspecified (6) COPD (chronic obstructive pulmonary disease): Status: Chronic Code(s): J44.9 - Chronic obstructive pulmonary disease, unspecified (7) GERD (gastroesophageal reflux disease): Status: Chronic Code(s): K21.9 - Gastro-esophageal reflux disease without esophagitis (8) Obesity (BMI 30-39.9): Status: Acute Code(s): E66.9 - Obesity, unspecified Meds Home Medications and Allergies Home Medications Medication Instructions Recorded Confirmed Type atorvastatin 80 mg tablet 80 mg PO ONCE Cholesterol 05/30/17 05/16/23 History memantine 10 mg tablet 10 mg PO BID MEMORY 02/02/19 05/16/23 History cyanocobalamin (vitamin B-12) 1,000 mcg IM WEEKLY Supplement 04/22/20 05/17/23 History 1,000 mcg/mL injection solution acetaminophen 500 mg tablet 500 mg PO QID PRN PAIN 07/09/20 05/16/23 History donepezil 5 mg tablet 5 mg PO HS 12/08/21 05/16/23 History linaclotide 290 mcg capsule 290 mcg PO DAILY 12/08/21 05/16/23 History (Linzess) pregabalin 50 mg capsule 50 mg PO HS 12/08/21 05/16/23 History sacrosidase 8,500 unit/mL oral 2 ml PO .6X/DAY 12/08/21 05/17/23 History solution (Sucraid) meclizine 25 mg tablet 25 mg PO TID 05/04/22 05/16/23 History albuterol sulfate 90 mcg/actuation 2 inh inhalation BID shortness of 12/28/22 05/16/23 Rx aerosol inhaler breath or wheezing 90 days #8.5 grams fluticasone propionate 50 2 spray intranasal DAILY 90 days 12/28/22 05/16/23 Rx mcg/actuation nasal #15.8 mL spray,suspension ipratropium 0.5 mg-albuterol 3 mg 3 ml inhalation Q6H PRN shortness 03/28/23 05/16/23 Rx (2.5 mg base)/3 mL nebulization of breath or wheezing #90 mL soln aspirin 325 mg tablet,delayed 325 mg PO DAILY 05/16/23 05/16/23 History release cholecalciferol (vitamin D3) 50 50 mcg PO DAILY 05/16/23 05/16/23 History mcg (2,000 unit) capsule omeprazole 20 mg capsule,delayed 20 mg PO DAILY 05/16/23 05/16/23 History release aluminum-mag hydroxide-simethicone 5 ml PO NEEDED PRN Acid Reflux 05/17/23 05/17/23 History 200 mg-200 mg-20 mg/5 mL oral susp azelastine 137 mcg (0.1 %) nasal 2 spray intranasal DAILY 05/17/23 05/17/23 History spray aerosol cyclobenzaprine 5 mg tablet 5 mg PO DAILY PRN Muscle Spasm 05/17/23 05/17/23 History montelukast 10 mg tablet 10 mg PO DAILY 05/17/23 05/17/23 History polyethylene glycol 3350 17 17 g PO DAILYP PRN Constipation 05/17/23 05/17/23 History gram/dose oral powder (Miralax) psyllium [id number] 3 1 ea PO DAILYP PRN Constipation 05/17/23 05/17/23 History gram/6 gram oral powder New Prescriptions to Start Prescriptions: Allergies Allergy/AdvReac Type Severity Reaction Status Date / Time honey Allergy Severe Anaphylaxis Verified 03/23/23 14:17 adhesive [ADHESIVE] Allergy Unknown Verified 03/23/23 14:17 ceftriaxone [From ROCEPHIN] Allergy Unknown Verified 03/23/23 14:17 ciprofloxacin [From CIPRO] Allergy Unknown Verified 03/23/23 14:17 codeine [CODEINE] Allergy Unknown Verified 03/23/23 14:17 gabapentin [GABAPENTIN] Allergy Unknown Verified 03/23/23 14:17 iodine [IODINE] Allergy Unknown Verified 03/23/23 14:17 latex [LATEX] Allergy Unknown Verified 03/23/23 14:17 meloxicam [MELOXICAM] Allergy Unknown Verified 03/23/23 14:17 meperidine [MEPERIDINE] Allergy Unknown Verified 03/23/23 14:17 oxytetracycline Allergy Unknown Verified 03/23/23 14:17 [OXYTETRACYCLINE] polymyxin B [POLYMYXIN B] Allergy Unknown Verified 03/23/23 14:17 rice [RICE] Allergy Unknown Verified 03/23/23 14:17 soy [SOY] Allergy Unknown Verified 03/23/23 14:17 venlafaxine [VENLAFAXINE] Allergy Unknown Verified 03/23/23 14:17 Iodinated Contrast Media Allergy Verified 05/16/23 14:55 BEEF Allergy Unknown ITCHING Uncoded 03/23/23 14:17 FISH. Allergy Unknown UNK RXN-ON Uncoded 03/23/23 14:17 ALLERGY TESTING ONLY From EGGS (FOOD/DRUG) Allergy Unknown DIARRHEA/NA Uncoded 03/23/23 14:17 USEA/VOMITI NG From MILK (FOOD/DRUG) Allergy Unknown DIARRHEA Uncoded 03/23/23 14:17 POTATOES Allergy Unknown BLOATING Uncoded 03/23/23 14:17 SEVELLA Allergy Unknown OUT OF IT Uncoded 03/23/23 14:17 VIOXX Allergy Unknown RASH/ITCHIN Uncoded 03/23/23 14:17 G WHEAT Allergy Unknown ITCHING IN Uncoded 03/23/23 14:17 MOUTH/NAUSEA Discharge Plan Disposition Patient Disposition: Home Health Service Condition: Fair Discharge Order Discharge Orders: Discharge Order (Routine); Ordered 05/18/23 Ordered By: Naman Sandoval Follow up Plan Follow up with: ProviderMaria Elena MD [Referring] - 06/05/23 (Your ENT appt at is this day. ) James Stack MD [Primary Care Provider] - 05/24/23 2:15 pm Prescriptions/Medication Reconciliation: Continued atorvastatin 80 mg tablet 80 mg PO ONCE cyanocobalamin (vitamin B-12) 1,000 mcg/mL solution 1,000 mcg IM WEEKLY Patient Comments: INJECT 1 ML INTRAMUSCULARLY ONCE A WEEK DIRECTED FOR B12 LEVEL donepezil 5 mg tablet 5 mg PO HS Patient Comments: TAKE ONE TABLET BY MOUTH EVERY DAY AT BEDTIME pregabalin 50 mg capsule 50 mg PO HS Patient Comments: TAKE ONE CAPSULE BY MOUTH EVERY DAY IN THE EVENING MAY CAUSE DROWSINESS Linzess 290 mcg capsule 290 mcg PO DAILY Sucraid 8,500 unit/mL solution 2 ml PO .6X/DAY meclizine 25 mg tablet 25 mg PO TID albuterol sulfate 90 mcg/actuation HFA aerosol inhaler 2 inh inhalation BID 90 Days Qty: 8.5 3RF Rx Instructions: To be used before flutter valve for sputum clearance fluticasone propionate 50 mcg/actuation spray,suspension 2 spray NS DAILY 90 Days Qty: 15.8 2RF Rx Instructions: administer into each nostril ipratropium-albuterol 0.5 mg-3 mg(2.5 mg base)/3 mL solution for nebulization 3 ml inhalation Q6H PRN (Reason: shortness of breath or wheezing) Qty: 90 3RF memantine 10 MG tablet 10 mg PO BID acetaminophen 500 MG tablet 500 mg PO QID PRN (Reason: PAIN) omeprazole 20 mg capsule,delayed release(DR/EC) 20 mg PO DAILY cholecalciferol (vitamin D3) 50 mcg (2,000 unit) capsule 50 mcg PO DAILY Patient Comments: TAKE ONE CAPSULE BY MOUTH EVERY DAY aspirin 325 mg tablet,delayed release (DR/EC) 325 mg PO DAILY Patient Comments: TAKE ONE TABLET BY MOUTH EVERY DAY montelukast 10 mg tablet 10 mg PO DAILY Patient Comments: TAKE ONE TABLET BY MOUTH EVERY DAY alum-mag hydroxide-simeth 200-200-20 mg/5 mL Suspension 5 ml PO NEEDED PRN (Reason: Acid Reflux) azelastine 137 mcg (0.1 %) Aerosol,[place] 2 spray intranasal DAILY polyethylene glycol 3350 [Miralax] 17 gram/dose Powder 17 g PO DAILYP PRN (Reason: Constipation) cyclobenzaprine 5 mg Tablet 5 mg PO DAILY PRN (Reason: Muscle Spasm) psyllium [id number]-[id number]-[id number] 3 gram/6 gram Powder 1 ea PO DAILYP PRN (Reason: Constipation) Discontinued furosemide 20 mg tablet 20 mg PO DAILY Diabetic Tussin 2 mg/5 mL Liquid 4 mg PO Q6 PRN (Reason: Cough) Problem Reconciliation Problems Reviewed?: Yes Patient Discharge Instructions ACTIVITY: Continue current activity and Ambulate as tolerated DIET: continue same diet Patient Instructions: DI for Vertigo, How to Prevent Falls Providers Primary Care Provider: James Stack Admit Provider: Naman Sandoval Attending Provider: Naman Sandoval
[2023-05-18 07:47] VITALS: BP 126/51; PULSE 58; RESP 18; TEMP 36.8; O2SAT 97
[2023-05-18] MEDS: MEMANTINE 10MG TABLET 10 MG PO (08:08)
[2023-05-18] MEDS: MECLIZINE 25MG TABLET 25 MG PO (08:08)
[2023-05-18] MEDS: FLUTICASONE PROP 50MCG NASAL SPRAY 16GM 2 SPRAY NS (08:08)
--- NOTE | 2023-05-18 11:41 | DIET.NUTRFU ---
provided her with multiple cardio handouts at her request and contact information for possible followup after neurotology/ENT at to go over menu plan. She as multiple allergies and cardio/diabetic diet recommendations and she would like a specific diet regimen to follow
--- NOTE | 2023-05-19 15:05 | CARE MANAGER ---
Contacted patient related to hospital discharge. She states she is still a little light headed but feeling better. She is aware of follow up appointments. YANIRA Neal
== END 2023-05-18 10:50 | disposition home health service (06) ==
LOC: ER 15:51 → 2ND 18:27
PROVIDERS: Physician Assistant; Admitting Provider Internal Medicine Adolescent Medicine; Emergency Provider Emergency Medicine; PCP Internal Medicine Adolescent Medicine; Visit Provider Internal Medicine Adolescent Medicine
DX: R11.2 Nausea with vomiting, unspecified (principal); R42 Dizziness and giddiness; E66.9 Obesity, unspecified; J44.9 Chronic obstructive pulmonary disease, unspecified; K21.9 Gastro-esophageal reflux disease without esophagitis; I50.9 Heart failure, unspecified; I11.0 Hypertensive heart disease with heart failure; E78.5 Hyperlipidemia, unspecified; E11.9 Type 2 diabetes mellitus without complications; Z68.35 Body mass index [BMI] 35.0-35.9, adult
CPT/HCPCS: 36415; 80053; 82550; 82962; 83036; 83735; 84443; 85025; 85378; 85610; 93005; 94640; 97110; 97116; 97163; 97165; 97530; 97535; 99291; G0378; J0131; J2405

== ENCOUNTER 2023-06-21 13:45 | Outpatient (CLI) | payer MEDICARE, BC, SELFPAY ==
--- NOTE | 2023-06-21 | CA_ITS ---
FINAL REPORT TECHNIQUE: Ultrasound images of the deep venous system were obtained from the left groin to the calf veins. CLINICAL HISTORY: .painful varicosities patient states are moving up the leg COMPARISON: None FINDINGS: The deep venous system is normally compressible. Normal flow is identified. Numerous varicosities are noted in the lower leg, without evidence of venous thrombosis. IMPRESSION: No evidence of left lower extremity DVT. Reviewed, Interpreted and Dictated by Kenn Ortiz MD Transcribed by Devorah Dang Authenticated and [facility]
== END 2023-06-21 23:59 ==
LOC: RT 13:47
PROVIDERS: PCP Internal Medicine Adolescent Medicine; Visit Provider Nurse Practitioner Family
DX: I83.92 Asymptomatic varicose veins of left lower extremity (principal); M79.605 Pain in left leg
CPT/HCPCS: 93971

== ENCOUNTER 2023-12-28 09:12 | Outpatient (CLI) | payer MEDICARE, BC, SELFPAY ==
--- NOTE | 2023-12-28 | MR_ITS ---
FINAL REPORT CLINICAL HISTORY: ACUTE RT HEMIPARESIS. VERTIGO FINDINGS: Multi planar MR imaging was obtained through the brain without contrast. Overall image quality is degraded by patient motion. There are small scattered foci of abnormal signal in the deep white matter bilaterally which is nonspecific but could be related to chronic microvascular ischemic change. The midline structures appear intact. There is no evidence of Chiari malformation. On T2 and flair axial images the brain parenchyma is homogeneous. On diffusion-weighted images there is no evidence of restricted diffusion. There is extensive lobular mucoperiosteal thickening of the left maxillary sinus.. The seventh and eighth nerve root complexes are intact. IMPRESSION: Essentially unremarkable nonenhanced brain MRI. Chronic left maxillary sinusitis. Reviewed, Interpreted and Dictated by Kenn Ortiz MD Transcribed by Codi Unger Authenticated and [facility]
== END 2023-12-28 23:59 | disposition home or self-care (01) ==
LOC: RAD 09:12
PROVIDERS: PCP Internal Medicine Adolescent Medicine; Visit Provider Internal Medicine Adolescent Medicine
DX: G81.91 Hemiplegia, unspecified affecting right dominant side (principal)
CPT/HCPCS: 70551

== ENCOUNTER 2024-02-23 20:08 | Emergency (ER) | payer MEDICARE, BC, SELFPAY ==
[2024-02-23 20:16] VITALS: BP 158/71; PULSE 77; O2SAT 95
--- NOTE | 2024-02-23 20:26 | ED_ITS ---
<Statement entered by Jenni Morel MD - 02/23/24 23:22> I was consulted by the HECTOR, and we discussed the complexity of the problems being addressed. I approved the treatment and management plan for this patient's care in the emergency department, thus performing a substantive portion of the medical decision making. Jenni Morel MD, KELLI, FACEP Discharge Plan Disposition Patient Disposition: Home, Self-Care Condition: Good Prescriptions Prescriptions: New lidocaine HCl [Aspercreme (lidocaine HCl)] 4 % cream 1 applic topical BID MDD 4 Qty: 120 0RF Rx Instructions: Apply a thin topical layer only on the external hemorrhoid every 6 hours as needed for hemorrhoid pain. No Action atorvastatin 80 mg tablet 80 mg PO ONCE cyanocobalamin (vitamin B-12) 1,000 mcg/mL solution 1,000 mcg IM WEEKLY Patient Comments: INJECT 1 ML INTRAMUSCULARLY ONCE A WEEK DIRECTED FOR B12 LEVEL donepezil 5 mg tablet 5 mg PO HS Patient Comments: TAKE ONE TABLET BY MOUTH EVERY DAY AT BEDTIME meclizine 25 mg tablet 25 mg PO furosemide 20 mg tablet 20 mg PO Patient Comments: TAKE ONE TABLET BY MOUTH EVERY DAY escitalopram oxalate 10 mg tablet 10 mg PO Patient Comments: TAKE ONE TABLET BY MOUTH EVERY DAY pregabalin 50 mg capsule 50 mg PO Patient Comments: TAKE ONE CAPSULE BY MOUTH EVERY DAY IN THE EVENING FOR NERVE PAIN MAY CAUSE DROWSINESS Linzess 290 mcg capsule 290 mcg PO DAILY Qty: 90 3RF omeprazole 20 mg capsule,delayed release(DR/EC) 20 mg PO DAILY Qty: 90 3RF Sucraid 8,500 unit/mL solution 2 ml PO .6X/DAY Qty: 300 11RF fluticasone propionate 50 mcg/actuation spray,suspension 2 spray NS DAILY 90 Days Qty: 15.8 2RF Rx Instructions: administer into each nostril azelastine 137 mcg (0.1 %) aerosol,spray 2 spray intranasal HS 90 Days Qty: 30 2RF Rx Instructions: administer into each nostril albuterol sulfate 90 mcg/actuation HFA aerosol inhaler 2 inh inhalation BID 90 Days Qty: 8.5 3RF Rx Instructions: To be used before flutter valve for sputum clearance memantine 10 MG tablet 10 mg PO BID acetaminophen 500 MG tablet 500 mg PO QID PRN (Reason: PAIN) cholecalciferol (vitamin D3) 50 mcg (2,000 unit) capsule 50 mcg PO DAILY Patient Comments: TAKE ONE CAPSULE BY MOUTH EVERY DAY aspirin 325 mg tablet,delayed release (DR/EC) 325 mg PO DAILY Patient Comments: TAKE ONE TABLET BY MOUTH EVERY DAY montelukast 10 mg tablet 10 mg PO DAILY Patient Comments: TAKE ONE TABLET BY MOUTH EVERY DAY polyethylene glycol 3350 [Miralax] 17 gram/dose Powder 17 g PO DAILYP PRN (Reason: Constipation) psyllium [id number]-asctfu-xbgkxhays 3 gram/6 gram Powder 1 ea PO DAILYP PRN (Reason: Constipation) Referrals Follow up/Referrals: Spencer Ivory MD [Staff Physician] - See instructions (Bleeding external hemorrhoid) James Stack MD [Primary Care Provider] - See instructions Activity Restrictions/Add. Instructions Additional Instructions/Restrictions: Please call on Monday to make your appointment with general surgery for evaluation and care of your hemorrhoids. You may use witch reid as well as the topical ointment that I have sent to your pharmacy. Please place nothing inside your rectum. Follow-up with your PCP for no improvement or worsening signs or symptoms or return to the ER as needed Clinical Impressions Clinical Impression: Bleeding external hemorrhoids Instructions Patient Instructions: DI for Gastrointestinal Bleeding Print Language Print Language: Latvian Discharge ED Provider: Jenni Morel General Adult HPI General Chief complaint: GI Bleed Stated complaint: rectal bleeding Time Seen by Provider: 02/23/24 20:26 History of Present Illness HPI narrative: Patient presents for evaluation of bright red blood per rectum. Patient states that she has had 2 episodes today of bright red blood per rectum that involve defecation or urination. Primarily referring to sitting. She is actually having no perirectal pain. However this evening she was walking through the house and she noticed some drops of blood on the floor spontaneously. Again without pain. She does not know if she has hemorrhoids and cannot particularly tell but did state ironically that when she was trying to stop the bleeding it was painful to touch. She denies any fever chills hemoptysis hematochezia melena nausea vomiting diarrhea. Related Data Home Medications ?Medication ?Instructions ?Recorded ?Confirmed atorvastatin 80 mg tablet 80 mg PO ONCE Cholesterol 05/30/17 01/25/24 memantine 10 mg tablet 10 mg PO BID MEMORY 02/02/19 01/25/24 cyanocobalamin (vitamin B-12) 1,000 mcg IM WEEKLY Supplement 04/22/20 01/25/24 1,000 mcg/mL injection solution acetaminophen 500 mg tablet 500 mg PO QID PRN PAIN 07/09/20 01/25/24 donepezil 5 mg tablet 5 mg PO HS 12/08/21 01/25/24 aspirin 325 mg tablet,delayed 325 mg PO DAILY 05/16/23 01/25/24 release cholecalciferol (vitamin D3) 50 50 mcg PO DAILY 05/16/23 01/25/24 mcg (2,000 unit) capsule montelukast 10 mg tablet 10 mg PO DAILY 05/17/23 01/25/24 polyethylene glycol 3350 17 17 g PO DAILYP PRN Constipation 05/17/23 01/25/24 gram/dose oral powder (Miralax) psyllium jcii-pmwvvb-covojjdhm 3 1 ea PO DAILYP PRN Constipation 05/17/23 01/25/24 gram/6 gram oral powder escitalopram oxalate 10 mg tablet 10 mg PO 01/25/24 01/25/24 furosemide 20 mg tablet 20 mg PO 01/25/24 01/25/24 meclizine 25 mg tablet 25 mg PO 01/25/24 01/25/24 pregabalin 50 mg capsule 50 mg PO 01/25/24 01/25/24 Previous Rx's ?Medication ?Instructions ?Recorded albuterol sulfate 90 mcg/actuation 2 inh inhalation BID shortness of 06/22/23 aerosol inhaler breath or wheezing 90 days #8.5 grams azelastine 137 mcg (0.1 %) nasal 2 spray intranasal HS 90 days #30 06/22/23 spray mL fluticasone propionate 50 2 spray intranasal DAILY 90 days 06/22/23 mcg/actuation nasal #15.8 mL spray,suspension linaclotide 290 mcg capsule 290 mcg PO DAILY #90 caps 01/25/24 (Linzess) omeprazole 20 mg capsule,delayed 20 mg PO DAILY #90 caps 01/25/24 release sacrosidase 8,500 unit/mL oral 2 ml PO .6X/DAY #300 mL 01/25/24 solution (Sucraid) lidocaine HCl 4 % topical cream 1 applic topical BID Hemorrhoids 02/23/24 (Aspercreme (lidocaine HCl)) #120 grams Allergies Allergy/AdvReac Type Severity Reaction Status Date / Time honey Allergy Severe Anaphylaxis Verified 01/25/24 11:01 adhesive (ADHESIVE) Allergy Unknown Verified 01/25/24 11:01 ceftriaxone (From ROCEPHIN) Allergy Unknown Verified 01/25/24 11:01 ciprofloxacin (From CIPRO) Allergy Unknown Verified 01/25/24 11:01 codeine (CODEINE) Allergy Unknown Verified 01/25/24 11:01 gabapentin (GABAPENTIN) Allergy Unknown Verified 01/25/24 11:01 iodine (IODINE) Allergy Unknown Verified 01/25/24 11:01 latex (LATEX) Allergy Unknown Verified 01/25/24 11:01 meloxicam (MELOXICAM) Allergy Unknown Verified 01/25/24 11:01 meperidine (MEPERIDINE) Allergy Unknown Verified 01/25/24 11:01 oxytetracycline Allergy Unknown Verified 01/25/24 11:01 (OXYTETRACYCLINE) polymyxin B (POLYMYXIN B) Allergy Unknown Verified 01/25/24 11:01 rice (RICE) Allergy Unknown Verified 01/25/24 11:01 soy (SOY) Allergy Unknown Verified 01/25/24 11:01 venlafaxine (VENLAFAXINE) Allergy Unknown Verified 01/25/24 11:01 Iodinated Contrast Media Allergy Verified 01/25/24 11:01 BEEF Allergy Unknown ITCHING Uncoded 01/25/24 11:01 FISH. Allergy Unknown UNK RXN-ON Uncoded 01/25/24 11:01 ALLERGY TESTING ONLY From EGGS (FOOD/DRUG) Allergy Unknown DIARRHEA/NA Uncoded 01/25/24 11:01 USEA/VOMITI NG From MILK (FOOD/DRUG) Allergy Unknown DIARRHEA Uncoded 01/25/24 11:01 POTATOES Allergy Unknown BLOATING Uncoded 01/25/24 11:01 SEVELLA Allergy Unknown OUT OF IT Uncoded 01/25/24 11:01 VIOXX Allergy Unknown RASH/ITCHIN Uncoded 01/25/24 11:01 G WHEAT Allergy Unknown ITCHING IN Uncoded 01/25/24 11:01 MOUTH/NAUSEA PFSH PFSH Disclaimer: The information contained in this section may have been updated after the patient was seen, as this information can be updated by other users. Medical History Abnormality of lung on CXR Fatigue Cough productive of purulent sputum Body aches Fever Hearing loss of both ears Post-nasal drip Meniere's disease Sinus drainage Dyspnea on exertion Recurrent pneumonia Chronic cough HTN (hypertension), benign HLD (hyperlipidemia) GERD (gastroesophageal reflux disease) T2DM (type 2 diabetes mellitus) COPD (chronic obstructive pulmonary disease) CHF (congestive heart failure) Atrial fibrillation Asthma Arrhythmia Diabetes mellitus Surgical History History of cholecystectomy H/O breast biopsy H/O lumpectomy Hx of tonsillectomy Status post bronchoscopy with biopsy Family History Other Cancer Coronary artery disease Diabetes Heart attack Hyperlipidemia Hypertension Kidney disease Tuberculosis Social History Smoking Status: Never smoker alcohol intake: never substance use type: denies use current occupational status: retired and disabled housing: assisted living facility current occupational exposures/hazards: No caffeine: Yes Other Medical History Have you received the Flu Vaccine for this season: No Have you received the Pneumonia Vaccine: Yes ROS Obtained: Yes Systems reviewed as appropriate & no additional complaints except as documented Physical Exam General General appearance: alert and in no apparent distress Respiratory Respiratory exam: Present normal lung sounds bilaterally Cardiovascular Cardiovascular exam: Present regular rate Neurological Exam Neurological exam: Present alert and oriented X3 Medical Decision Making Medical Records Medical records reviewed: Yes I reviewed the patient's medical records. Screening: Per USPSTF and CDC recommendations, given the prevalence of disease in our region, it is our hospital?s policy to screen for HIV and viral Hepatitis for all patients aged 18 and over and those with ongoing risk factors. Nayan Inquiry Pt receiving controlled substance: No Vital Signs: 02/23/24 20:16 02/23/24 20:30 02/23/24 20:30 Temperature 97.9 F Temperature Source Oral Pulse Rate 77 72 Pulse Rate [Left Radial] 76 Respiratory Rate 22 Blood Pressure 158/71 H 138/62 Blood Pressure [Right Arm] 158/71 H Blood Pressure Mean [Right Arm] 100 Blood Pressure Source [Right Arm] Automatic Cuff Blood Pressure Position [Right Arm] Standing 02 Sat by Pulse Oximetry 95 95 96 Oxygen Delivery Method Room Air Lab Data Lab results reviewed: Yes I reviewed the patient's lab results. Lab Results 02/23/24 20:17: Stool Occult Blood Positive A Orders (Tests/Meds): ED MEDICATIONS Generic Name Dose Route Start Last Admin Trade Name Freq PRN Reason Stop Dose Admin Earnest Rodriguez 1 each 02/23/24 20:27 Earnest Rodriguez 40 Pads/Box TP 03/24/24 20:26 NEEDED PRN Hemorrhoids ORDERS Category Date Time Status Occult Blood,Stool Stat Lab 02/23/24 20:17 Completed Medical Decision Narrative: In summary patient is a 79-year-old female who presents to the emergency department for evaluation of bright red blood per rectum. Patient is hemodynamically stable upon arrival, afebrile. Physical exam is remarkable for multiple external hemorrhoids however she has a right posterior bleeding hemorrhoid that is not thrombosed currently. I do not feel any stool in the rectal vault however a true occult blood specimen was unreliable due to the amount of bleeding from external hemorrhoid and while venous contaminated my glove. No clotted blood noted no rectal tears noted on digital exam. Patient has no abdominal tenderness no rebound or guarding or rigidity.. Differential diagnosis includes bleeding external hemorrhoid. Versus internal bleeding hemorrhoid. Initial workup was considered with imaging and labs however patient has no red flags for any other sequela other than the obvious bleeding external hemorrhoid thus is deferred. Initial interventions include Tucks pads. As patient is hemodynamically stable and is not bleeding uncontrollably patient is appropriate for discharge with medical management and conservative treatment of Tucks pads and Aspercreme. Patient will be referred to general surgery for possible excision of the hemorrhoid if it continues to be bothersome. Patient given strict return precautions. Critical Care Critical Care Time Critical Care Time: No
[2024-02-23 20:30] VITALS: BP 138/62; BP 158/71; PULSE 72; PULSE 76; RESP 22; TEMP 36.6; O2SAT 95; O2SAT 96; BMI 34.5
[2024-02-23 20:40] LABS: Occult Blood,Stool Positive (Negative)
[2024-02-23 21:00] VITALS: BP 135/67; PULSE 69; O2SAT 98
[2024-02-23 21:04] VITALS: BP 135/67; PULSE 68; RESP 20; TEMP 36.6; O2SAT 96
== END 2024-02-23 21:11 | disposition home or self-care (01) ==
PROVIDERS: Physician Assistant; Emergency Provider Student in an Organized Health Care Education/Training Program; PCP Internal Medicine Adolescent Medicine
DX: K64.4 Residual hemorrhoidal skin tags (principal); K62.5 Hemorrhage of anus and rectum
CPT/HCPCS: 82272; 99283; G0328

== ENCOUNTER 2024-07-04 06:09 | Day surgery (SDC) | payer MEDICARE, BC, SELFPAY ==
--- NOTE | 2024-07-01 14:05 | SUR.PREOP ---
left message with pt regarding procedure
[2024-07-02 16:54] VITALS: BMI 33.7
[2024-07-04] VITALS (7 sets, daily range): BP systolic 107–143; BP diastolic 52–72; PULSE 59–68; RESP 17–18; TEMP 36.4–36.6; O2SAT 96–100
[2024-07-04] MEDS: LACTATED RINGERS 1000ML 1,000 ML 50 ML IV (06:56)
[2024-07-04 07:18] LABS: POC Glucose,Bedside 105 (70-110)
--- NOTE | 2024-07-04 07:24 | P.PNANES_ITS ---
[facility] Disclaimer: The information contained in this section may have been updated after the patient was seen, as this information can be updated by other users. Medical History Abnormality of lung on CXR Fatigue Cough productive of purulent sputum Body aches Fever Hearing loss of both ears Post-nasal drip Meniere's disease Sinus drainage Dyspnea on exertion Recurrent pneumonia Chronic cough HTN (hypertension), benign HLD (hyperlipidemia) GERD (gastroesophageal reflux disease) T2DM (type 2 diabetes mellitus) COPD (chronic obstructive pulmonary disease) CHF (congestive heart failure) Atrial fibrillation Asthma Arrhythmia Diabetes mellitus Surgical History History of cholecystectomy H/O breast biopsy H/O lumpectomy Hx of tonsillectomy Status post bronchoscopy with biopsy Family History Other Cancer Coronary artery disease Diabetes Heart attack Hyperlipidemia Hypertension Kidney disease Tuberculosis Social History Smoking Status: Never smoker alcohol intake: never substance use type: denies use current occupational status: retired and disabled Travel in the last 8 weeks: None housing: assisted living facility current occupational exposures/hazards: No caffeine: Yes Have you lived/traveled outside [place] in past 30 days?: No Contact w/someone who lives/traveled outside [place] past 30 days?: No Exposure to someone with infectious disease in past 14 days?: No Do you have a fever (greater than 100.4 F or 38 C)?: No Have you tested positive for COVID-19: No Exposed to someone with COVID-19 in past 14 days?: No Do you have a sore throat?: No Do you have a cough?: No Do you have any weakness?: No Do you have any diarrhea?: No Are you experiencing any unusual bleeding?: No Do you have any muscle aches/pain?: No Do you have any abdominal pain?: No Are you experiencing loss of taste or smell?: No [facility] Anesthesia Checklist Patient Identification Patient Identification: Arm Band and Verbal (Name & ) Structural Data Admitted From: Home Planned Operative Procedure/s: colonscopy Consent for Planned Operative Procedure(s) Verified: Yes Verified Documents: Surgical Consent and History and Physical NPO Status Verified Time NPO: 00:00 Additional verifications Anesthesia Reactions: No Hx Blood Transfusions: No Blood Transfusion Reaction: No Airway Assessment Mallampati Score:: Class II Dentition: Good Dentition Neurological Assessment Level of Consciousness: Awake, Alert and Appropriate Hx Seizures: No Anesthesia Plan Anesthesia Risk discussed: Yes Anesthesia Plan: Verified ASA Class: II Anesthesia Type: MAC
--- NOTE | 2024-07-04 07:59 | EXP.HP ---
History of Present Illness *Admission Date: 07/04/24 *Reason for visit:: Surveillance colonoscopy-personal history of adenomatous polyps *History of present illness: Mrs. Massey is a 79-year-old female who is here for surveillance colonoscopy secondary to a personal history of adenomatous colon polyps. Her colonoscopy in October 2019 revealed 4 polyps (tubular adenomas x 4) which were removed. The examination is deemed medically necessary for surveillance colonoscopy. The patient has been seen, interviewed and examined prior to the procedure by both myself and the anesthesia provider. [facility] Disclaimer: The information contained in this section may have been updated after the patient was seen, as this information can be updated by other users. Medical History Abnormality of lung on CXR Fatigue Cough productive of purulent sputum Body aches Fever Hearing loss of both ears Post-nasal drip Meniere's disease Sinus drainage Dyspnea on exertion Recurrent pneumonia Chronic cough HTN (hypertension), benign HLD (hyperlipidemia) GERD (gastroesophageal reflux disease) T2DM (type 2 diabetes mellitus) COPD (chronic obstructive pulmonary disease) CHF (congestive heart failure) Atrial fibrillation Asthma Arrhythmia Diabetes mellitus Surgical History History of cholecystectomy H/O breast biopsy H/O lumpectomy Hx of tonsillectomy Status post bronchoscopy with biopsy Family History Other Cancer Coronary artery disease Diabetes Heart attack Hyperlipidemia Hypertension Kidney disease Tuberculosis Social History Smoking Status: Never smoker alcohol intake: never substance use type: denies use current occupational status: retired and disabled Travel in the last 8 weeks: None housing: assisted living facility current occupational exposures/hazards: No caffeine: Yes Have you lived/traveled outside [place] in past 30 days?: No Contact w/someone who lives/traveled outside [place] past 30 days?: No Exposure to someone with infectious disease in past 14 days?: No Do you have a fever (greater than 100.4 F or 38 C)?: No Have you tested positive for COVID-19: No Exposed to someone with COVID-19 in past 14 days?: No Do you have a sore throat?: No Do you have a cough?: No Do you have any weakness?: No Do you have any diarrhea?: No Are you experiencing any unusual bleeding?: No Do you have any muscle aches/pain?: No Do you have any abdominal pain?: No Are you experiencing loss of taste or smell?: No Other Medical History Have you received the Flu Vaccine for this season: No Have you received the Pneumonia Vaccine: Yes Review of Systems Review of Systems Review of systems (narrative): Negative *Cardiovascular Comments: Negative *Gastrointestinal Comments: Negative *Genitourinary Comments: Negative *Musculoskeletal Comments: Negative *Neurologic Comments: Negative Meds Home Medications and Allergies Home Medications ?Medication ?Instructions ?Recorded ?Confirmed ?Type atorvastatin 80 mg tablet 80 mg PO ONCE Cholesterol 05/30/17 07/04/24 History memantine 10 mg tablet 10 mg PO BID MEMORY 02/02/19 07/04/24 History cyanocobalamin (vitamin B-12) 1,000 mcg IM WEEKLY Supplement 04/22/20 07/04/24 History 1,000 mcg/mL injection solution acetaminophen 500 mg tablet 500 mg PO QID PRN PAIN 07/09/20 07/04/24 History donepezil 5 mg tablet 5 mg PO HS 12/08/21 07/04/24 History aspirin 325 mg tablet,delayed 325 mg PO DAILY 05/16/23 07/04/24 History release cholecalciferol (vitamin D3) 50 50 mcg PO DAILY 05/16/23 07/04/24 History mcg (2,000 unit) capsule montelukast 10 mg tablet 10 mg PO DAILY 05/17/23 07/04/24 History polyethylene glycol 3350 17 17 g PO DAILYP PRN Constipation 05/17/23 07/04/24 History gram/dose oral powder (Miralax) psyllium rsro-lkicfp-ohbbdgdex 3 1 ea PO DAILYP PRN Constipation 05/17/23 07/04/24 History gram/6 gram oral powder albuterol sulfate 90 mcg/actuation 2 inh inhalation BID shortness of 06/22/23 07/04/24 Rx aerosol inhaler breath or wheezing 90 days #8.5 grams escitalopram oxalate 10 mg tablet 10 mg PO DAILY 01/25/24 07/04/24 History furosemide 20 mg tablet 20 mg PO DAILY 01/25/24 07/04/24 History linaclotide 290 mcg capsule 290 mcg PO DAILY #90 caps 01/25/24 07/04/24 Rx (Linzess) meclizine 25 mg tablet 25 mg PO DAILY 01/25/24 07/04/24 History omeprazole 20 mg capsule,delayed 20 mg PO DAILY #90 caps 01/25/24 07/04/24 Rx release pregabalin 50 mg capsule 50 mg PO DAILY 01/25/24 07/04/24 History sacrosidase 8,500 unit/mL oral 2 ml PO .6X/DAY #300 mL 01/25/24 07/04/24 Rx solution (Sucraid) lidocaine HCl 4 % topical cream 1 applic topical BID Hemorrhoids 02/23/24 07/04/24 Rx (Aspercreme (lidocaine HCl)) #120 grams hydrocortisone 2.5 % topical cream 1 applic DC QD-BID PRN hemorrhoids 02/29/24 07/04/24 Rx with perineal applicator #30 grams (Proctosol HC) azelastine 137 mcg (0.1 %) nasal See Rx Instructions .Route 03/12/24 07/04/24 Rx spray .COMPLEX #30 mL fluticasone propionate 50 See Rx Instructions .Route 05/10/24 07/04/24 Rx mcg/actuation nasal .COMPLEX #16 grams spray,suspension sodium,potassium,mag sulfates 17.5 See Rx Instructions PO .COMPLEX 06/19/24 07/04/24 Rx gram-3.13 gram-1.6 gram oral soln #354 mL (Suprep Bowel Prep Kit) New Prescriptions to Start Prescriptions: Allergies Allergy/AdvReac Type Severity Reaction Status Date / Time honey Allergy Severe Anaphylaxis Verified 07/04/24 07:10 adhesive (ADHESIVE) Allergy Unknown Rash Verified 07/04/24 07:10 ceftriaxone (From ROCEPHIN) Allergy Unknown Rash Verified 07/04/24 07:10 ciprofloxacin (From CIPRO) Allergy Unknown Rash Verified 07/04/24 07:10 codeine (CODEINE) Allergy Unknown Rash Verified 07/04/24 07:10 gabapentin (GABAPENTIN) Allergy Unknown Rash Verified 07/04/24 07:10 iodine (IODINE) Allergy Unknown Rash Verified 07/04/24 07:10 latex (LATEX) Allergy Unknown Rash Verified 07/04/24 07:10 meloxicam (MELOXICAM) Allergy Unknown Rash Verified 07/04/24 07:10 meperidine (MEPERIDINE) Allergy Unknown Rash Verified 07/04/24 07:10 oxytetracycline Allergy Unknown Rash Verified 07/04/24 07:10 (OXYTETRACYCLINE) polymyxin B (POLYMYXIN B) Allergy Unknown Rash Verified 07/04/24 07:10 rice (RICE) Allergy Unknown Redness of Verified 07/04/24 07:10 Skin soy (SOY) Allergy Unknown Rash Verified 07/04/24 07:10 venlafaxine (VENLAFAXINE) Allergy Unknown Rash Verified 07/04/24 07:10 Iodinated Contrast Media Allergy Rash Verified 07/04/24 07:10 BEEF Allergy Unknown ITCHING Uncoded 02/29/24 09:12 FISH. Allergy Unknown UNK RXN-ON Uncoded 02/29/24 09:12 ALLERGY TESTING ONLY From EGGS (FOOD/DRUG) Allergy Unknown DIARRHEA/NA Uncoded 02/29/24 09:12 USEA/VOMITI NG From MILK (FOOD/DRUG) Allergy Unknown DIARRHEA Uncoded 02/29/24 09:12 POTATOES Allergy Unknown BLOATING Uncoded 02/29/24 09:12 SEVELLA Allergy Unknown OUT OF IT Uncoded 02/29/24 09:12 VIOXX Allergy Unknown RASH/ITCHIN Uncoded 02/29/24 09:12 G WHEAT Allergy Unknown ITCHING IN Uncoded 02/29/24 09:12 MOUTH/NAUSEA Exam Data for Last 24 hours Vital signs and Labs for Last 24 Hours: Temp Pulse Resp BP Pulse Ox O2 Del Method 97.8 F 62 18 133/66 98 Room Air 07/04/24 07:12 07/04/24 07:12 07/04/24 07:12 07/04/24 07:12 07/04/24 07:12 07/04/24 07:12 Laboratory Results - last 24 hr 07/04/24 07:11: POC Glucose 105 I & O for Last 24 hours: Intake & Output 07/01/24 07/02/24 07/03/24 07/04/24 23:59 23:59 23:59 23:59 Weight 222 lb *Routine HEENT Exam Head: Present normocephalic Eye: Present EOMI and PERRL ENT: Present mucous membranes moist *Routine Neck Exam Neck: Present supple *Routine Respiratory Exam Respiratory: Present CTA bilaterally *Routine Cardiovascular Exam Cardiovascular: Present RRR *Routine Abdominal Exam Abdominal: Present soft and normoactive bowel sounds; Absent tenderness *Routine Rectal Exam Rectal:: deferred *Routine Genitalia Exam Genitalia:: deferred *Routine Extremities Exam Extremities: Absent cyanosis, clubbing or edema *Routine Skin Exam Skin: Present warm; Absent rash *Routine Neurological Exam Neurological: Present alert and oriented X3 Assessment and Plan *Assessment and plan (1) Personal history of adenomatous and serrated colon polyps: Status: Acute Category: Medical Code(s): Z86.0101 - Personal history of adenomatous and serrated colon polyps Plan A/P: 1. Personal history of adenomatous colon polyps is the preprocedural diagnosis. The patient will be anesthetized/sedated using MAC sedation. The patient has been seen and examined. Cardiac and lung assessment prior to the examination is stable. Proceed with planned surveillance colonoscopy.
--- NOTE | 2024-07-04 08:01 | HMH.PROCNOTE ---
[facility] Procedure Note Date: 07/04/24 Time: 08:24 Procedure Note:: Colonoscopy Procedure Report: Colonoscopy with cold snare polypectomy Endoscopist: Wagner Marcelino II, MD Referring physician: James Stack M.D. Date of Procedure: July 04, 2024 Equipment: Olympus 190 variable stiffness pediatric colonoscope Sedation: MAC sedation Indication: Mrs. Massey is a 79-year-old female who is here for follow-up surveillance colonoscopy secondary to a personal history of adenomatous colon polyps. Her colonoscopy in October 2019 revealed 4 polyps (tubular adenomas x 4) which were removed. These polyps were all between 4 and 5 mm in size. The patient does state that her mother had colon cancer at the age of 74. 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 She does have moderate gassiness and bloating. She reports some lower abdominal discomfort. All of this is longstanding and not new. The patient was seen last in the office by Amanda BLANKENSHIP in December 2023. 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 She does take Linzess and combined fiber bowel regimen (MiraLAX plus Konsyl). The patient also had left-sided diverticulosis. The patient reports no rectal bleeding or weight loss. Procedure: Prior to the procedure, a history and physical exam was performed, and patient's medications and allergies were reviewed. The risks, benefits and alternatives of the sedation and procedure were discussed with the patient. All questions were answered and informed consent was obtained. The patient was brought to the procedure room. Patient identification and proposed procedure were verified by the physician and the nurse. The patient was placed in a left lateral decubitus position and the scope was passed under direct vision. Throughout the procedure, the patient's blood pressure, pulse, and oxygen saturations were monitored continuously. The colonoscopy was accomplished without difficulty. The patient tolerated the procedure well. Findings: On digital rectal examination there was normal rectal tone. There were no external hemorrhoids. The colonoscope was introduced through the anal canal to the rectum and advanced to the cecum. The ileocecal valve and appendiceal orifice were identified. The scope was advanced a short distance into the ileum which appeared grossly normal. The scope was then withdrawn into the colon. There were 4 polyps (cecum x 2 (5 and 9 mm), ascending x 1 (4 mm) and descending x 1 (4 mm)). These were all removed via cold snare polypectomy. The remaining cecum, ascending and transverse colon and mucosa were grossly normal. There were scattered diverticuli throughout the descending and sigmoid colon (LEFT colon). The rectum itself was normal. Upon retroflexion within the rectum there were grade 2 internal hemorrhoids. The preparation was excellent throughout with [place] Preparation Score of 9. The cecal time was 13 minutes. Impression: 1. Colonic polyps x 4 2. Left-sided diverticulosis 3. Grade 2 internal hemorrhoids Plan: I will follow-up the polyp histology and will determine whether she requires any further surveillance colonoscopy based upon age. The patient does have longstanding IBS and sucrase isomaltase deficiency. She also has some mild dysfunction constipation and may benefit from pelvic floor physical therapy.
== END 2024-07-04 09:35 | disposition home or self-care (01) ==
PROVIDERS: PCP Internal Medicine Adolescent Medicine; Visit Provider Internal Medicine Gastroenterology
PROC: 0DJD8ZZ Inspection of Lower Intestinal Tract, Via Natural or Artificial Opening Endoscopic (ICD-10-PCS; CPT 45378; principal; 2024-07-04 08:00)
DX: D12.2 Benign neoplasm of ascending colon (principal); D12.0 Benign neoplasm of cecum; D12.4 Benign neoplasm of descending colon; K57.30 Diverticulosis of large intestine without perforation or abscess without bleeding; K64.1 Second degree hemorrhoids; Z86.0101 Personal history of adenomatous and serrated colon polyps; Z80.0 Family history of malignant neoplasm of digestive organs; K58.2 Mixed irritable bowel syndrome; R14.0 Abdominal distension (gaseous); R10.30 Lower abdominal pain, unspecified; E74.31 Sucrase-isomaltase deficiency
CPT/HCPCS: 45385; 82962; J7120

== ENCOUNTER 2024-07-18 13:42 | Outpatient (CLI) | payer MEDICARE, BC, SELFPAY ==
[2024-07-18 15:17] VITALS: BMI 35.2
== END 2024-07-18 23:59 | disposition home or self-care (01) ==
LOC: DIETICIAN 13:44
PROVIDERS: PCP Internal Medicine Adolescent Medicine; Visit Provider Internal Medicine Adolescent Medicine
DX: E11.9 Type 2 diabetes mellitus without complications (principal)
CPT/HCPCS: 97802

== ENCOUNTER 2024-10-25 10:36 | Emergency (ER) | payer MEDICARE, BC, SELFPAY ==
[2024-10-25] VITALS (9 sets, daily range): BP systolic 128–149; BP diastolic 57–75; PULSE 53–65; RESP 15–19; TEMP 36.4; O2SAT 94–98; BMI 33.7
--- NOTE | 2024-10-25 10:38 | ECG_ITS ---
APPROVED REPORT Exam: Resting ECG HR:61 bpm ECG Measurements Heart Rate 61 AXES DC 211 P 145 QRSd 82 QRS 184 QT 440 T 149 QTc 442 Conclusion SINUS RHYTHM WITH FIRST DEGREE AV BLOCK ARM LEADS REVERSED [INVERTED P AND QRS IN I] ABNORMAL ECG WARNING: DATA QUALITY MAY AFFECT INTERPRETATION UNCONFIRMED REPORT Normal sinus rhythm. No ST elevation or depression. Borderline first-degree AV block. Electronically signed by : BLAINE OSHEA, 10/28/2024 14:33:02
--- OUTSIDE RECORDS SUMMARY | 2024-10-25 10:49 | XMS_ITS | Encounter Summary ---
Author Organization Healthcare Address [address] [place] [address] Care Team Providers Care Moving Picture Producer Name Role Phone James Stack MD Primary Care Provider [phone] Reason for Visit * Reason Onset Date Comments [facility] Same Day Appt/Overbook Request 08/28/2024 Encounter Details Date Type Department Care Team (Late st Contact Info) Description 08/28/2024 Telephone [facility] [address] [place] [address] None, None [address] [place], [place] [id number] [facility] Same Day Appt/Overbook Request Social History Tobacco Use Types Packs/Day Years Used Date Smoking Tobacco: Never Smokeless Tobacco: Never Alcohol Use Standard Drinks/Week Comments Not Currently 0 (1 standard drink = 0.6 oz pur e alcohol) Comments Unknown Sex and Gender Information Value Date Recorded Sex Assigned at Not on file Legal Sex Female 8:01 PM EDT Gender Identity Not on file Sexual Orientation Not on file documented as of this encounter Miscellaneous Notes * Telephone Encounter - Lauri Wells - 08/30/2024 10:41 AM EDT Triage Note 08/30/2024 10:[address] Melendez at eye [facility]; given correct number and extension. * Telephone Encounter - Jaz Redman - 08/28/2024 10:36 AM EDT Triage Note 08/28/2024 10:36 AM Called patient. No answer. Left voice mail requesting a call back. * Telephone Encounter - Susana Caraballo - 08/28/2024 8:39 AM EDT Same Day Appt/Overbook Request Reason for Call: Patient has referral for cataract eval, notes state that patient has burning sensation in her eyes and that her vision is declining. Best contact number: [phone] (home) Optimal time of day to reach caller: ANYTIME Additional comments/information from caller: None Note: Please do not reply to this message. Follow-up communication and further actions as a result of this message need to be communicated with the patient directly, if the patient is not active onMyChart. If the patient is active on MyChart, they will receive notification of the communication/outcome via [employer]. documented in this encounter Plan of Treatment Not on file documented as of this encounter Visit Diagnoses Not on filedocumented in this encounter Additional Health Concerns Assessment Noted Time A fall risk assessment has been complete d for the patient 07/27/2023 12:19 PM EDT A Body Mass Index follow-up plan has been documented for the patient 07/27/2023 1:22 PM EDT documented as of this encounter Care Teams Moving Picture Producer Relationship Specialty Start Date End Date James Stack MD [address] [place] [address] PCP - General Internal Medicine 06/05/23 documented as of this encounter
--- OUTSIDE RECORDS SUMMARY | 2024-10-25 10:49 | XMS_ITS | Encounter Summary ---
Author Organization Healthcare Address [address] [place] [address] Care Team Providers Care Store Operations Associate Name Role Phone James Stack MD Primary Care Provider [phone] Reason for Referral * Consultation (Routine) - Authorized Specialty Diagnoses / Procedures Referred By Terrell buckley Referred To Contact Ophthalmology Diagnoses Nuclear sclerotic cataract of both eyes James Stack MD [address] [place] [address] Phone: tel: fax: [facility] [place] [address] [place] [address] Phone: tel: fax: Referral ID Status Reason Start Date Expiration Date Visits Requested Visits Authorized [id number] Authorized Specialty Services Required 08/27/2024 02/26/2026 1 1 Encounter Details Date Type Department Care Team (Late st Contact Info) Description 08/27/2024 Community [facility] [address] [place] [address] James Stack MD [address] [place] [address] Nuclear sclerotic cataract of both eyes (Primary Dx) Social History Tobacco Use Types Packs/Day Years [...] on file documented as of this encounter Plan of Treatment Scheduled Referrals Name Type Priority Associated Diagnoses Order Schedule Ambulatory Referral to Ophthalmology Outpatient Referral Routine Nuclear sclerotic cataract of both eyes Expected: 08/27/2024 (Approximate), Expires: 02/28/2026 documented as of this encounter Visit Diagnoses Diagnosis Nuclear sclerotic cataract of both eyes- Primary Senile nuclear sclerosis documented in this encounter Additional Health Concerns Assessment Noted Time A fall risk assessment has been complete d for the patient 07/27/2023 12:19 PM EDT A Body Mass Index follow-up plan has been documented for the patient 07/27/2023 1:22 PM EDT documented as of this encounter Care Teams Store Operations Associate Relationship Specialty Start Date End Date James Stack MD [address] [place] [address] PCP - General Internal Medicine 06/05/23 documented as of this encounter
--- OUTSIDE RECORDS SUMMARY | 2024-10-25 10:49 | XMS_ITS | Clinical Summary ---
Author Organization [facility] Address [address] [place] [id number] Care Team Providers Care Ship Unloader Name Role Phone James Stack MD Primary Care Provider [phone] Allergies Active Allergy Reactions Criticality Noted Date Comments Adhesive Tape Other (See Comments) 01/25/2024 Ceftriaxone Other (See Comments) Low 06/05/2023 Ciprofibrate Unknown (See Comments) Low 06/05/2023 Ciprofloxacin Rash Low 12/21/2021 Codeine Nausea Only 12/21/2021 Etodolac Unknown (See Comments) Low 06/05/2023 Gabapentin Unknown (See Comments) Low 12/21/2021 Honey Anaphylaxis High 12/21/2021 Iodinated Contrast Media Other (See Comments) 1 Iodine Rash Low 12/21/2021 Latex Rash Low 12/21/2021 Meloxicam Unknown (See Comments) Low 06/05/2023 Meperidine Unknown (See Comments) Low 06/05/2023 Metformin Unknown (See Comments) Low 06/05/2023 Milnacipran Unknown (See Comments) Low 06/05/2023 Oxytetracycline Unknown (See Comments) Low 12/22/19 Polymyxin B Unknown (See Comments) Low 12/21/2021 Rice Unknown (See Comments) Low 12/21/2021 Rofecoxib Unknown (See Comments) Low 06/05/2023 Venlafaxine Unknown (See Comments) Low 06/05/2023 Medications aspirin 325 MG EC tablet Take 1 tablet by mouth Daily. 4 Active atorvastatin (LIPITOR) 80 MG tablet Take 1 tablet by mouth Daily. 5 Active azelastine (ASTELIN) 0.1 % nasal spray Administer 2 sprays into the nostril(s) as directed by provider Every Night. 4 Active Cholecalciferol (Vitamin D3) 50 MCG (2000 UT) capsule Take 1 capsule by mouth Daily. Active cyanocobalamin 1000 MCG/ML injection Inject 1 mL into the appropriate muscle as directed by prescriber 1 (One) Time Per Week. Active donepezil (ARICEPT) 10 MG tablet Take 1 tablet by mouth every night at bedtime. 4 Active escitalopram (LEXAPRO) 10 MG tablet Take 1 tablet by mouth Daily. 5 Active furosemide (LASIX) 20 MG tablet Take 1 tablet by mouth Daily. Active fluticasone (FLONASE) 50 MCG/ACT nasal spray 2 sprays by Each Nare route Daily. 4 Active GNP Lidocaine Pain Relieving 4 % cream Apply 1 Application topically to the appropriate area as directed As Needed. 4 Active Linzess 290 MCG capsule capsule Take 1 capsule by mouth Every Morning Before Breakfast. 5 Active meclizine (ANTIVERT) 25 MG tablet Take 1 tablet by mouth 3 (Three) Times a Day As Needed. 5 Active memantine (NAMENDA) 10 MG tablet Take 1 tablet by mouth Daily. 5 Active montelukast (SINGULAIR) 10 MG tablet Take 1 tablet by mouth Every Evening. 4 Active omeprazole (priLOSEC) 20 MG capsule Take 1 capsule by mouth Daily. 4 Active pregabalin (LYRICA) 50 MG capsule Take 1 capsule by mouth Every Night. 4 Active Probiotic Product (PROBIOTIC BLEND PO) Take by mouth. Activ e polyethylene glycol (MiraLax) 17 GM/SCOOP powder Take 17 g by mouth Daily. Active Calcium & Magnesium Carbonates (MYLANTA PO) Take by mouth. Ac tive Simethicone (GAS-X PO) Take by mouth. Acti ve albuterol (ACCUNEB) 1.25 MG/3ML nebulizer solution Take 3 mL by nebulization Every 6 (Six) Hours As Needed for Shortness of Air. Active Active Problems No known active problems Family History Medical History Relation Name Comments Aneurysm Brother Arthritis Brother Heart attack Brother Heart disease Brother High cholesterol Brother Heart disease Father Throat cancer Father Diabetes Mother Heart attack Mother Hypertension Mother Heart disease Paternal Grandfather Cancer Paternal Grandmother Heart disease Paternal Grandmother Relation Name Status Comments Brother Father Mother Paternal Grandfather Paternal Grandmother Social History Tobacco Use Types Packs/Day Years Used Date Smoking Tobacco: Never Smokeless Tobacco: Never Tobacco Cessation:Counseling Given: No Alcohol Use Standard Drinks/Week Comments Never 0 (1 standard drink = 0.6 oz pur e alcohol) Comments Unknown Sex and Gender Information Value Date Recorded Sex Assigned at Not on file Legal Sex Female 10:11 AM EDT Gender Identity Not on file Sexual Orientation Not on file Last Filed Vital Signs Vital Sign Reading Time Taken Comments Blood Pressure 130/62 04/08/2024 10:44 AM EST Pulse 68 04/08/2024 10:44 AM EST Temperature - - Respiratory Rate - - Oxygen Saturation 98% 04/08/2024 10:44 AM EST Inhaled Oxygen Concentration - - Weight 101 kg (222 lb 12.8 oz) 04/08/2024 10:44 AM EST Height 172.7 cm (5' 8 ) 04/08/2024 10:44 AM EST Body Mass Index 33.88 04/08/2024 10:44 AM EST Plan of Treatment Health Maintenance Due Date Last Done Comments DXA SCAN 1945 TDAP/TD VACCINES (1 - Tdap) 1965 Pneumococcal Vaccine 50+ (2 of 2 - PCV) 06/14/2019 06/13/2018 RSV Vaccine - Adults (1 - 1- dose 75+ series) 2021 COVID-19 Vaccine (5 - 2023-2 5 season) 2023 11/25/2021, 01/28/2021, 07/22/2020, Additional history exists ANNUAL WELLNESS VISIT 04/08/2024 HEPATITIS C SCREENING 04/08/2024 INFLUENZA VACCINE 12/25/2024 12/06/2021, , 01/16/2019, Additional history exists ZOSTER VACCINE Completed 06/26/2023, 03/26/2020 Insurance MEDICARE A & B [facility] Care Teams Ship Unloader Relationship Specialty Start Date End Date James Stack MD [address] [facility] [address] [facility] [address] [facility] [id number] PCP - General Adolescent Medicine 04/08/24
--- OUTSIDE RECORDS SUMMARY | 2024-10-25 10:49 | XMS_ITS | Clinical Summary ---
Author Organization [facility] Address [address] [place] [address] Care Team Providers Care Project Management Advisor Name Role Phone James Stack MD Primary Care Provider [phone] Allergies Active Allergy Reactions Criticality Noted Date Comments Ciprofibrate Unknown - Patient st ates they do not know rxn details Low 06/05/2023 Ciprofloxacin Rash Low 12/21/2021 Codeine Nausea 12/21/2021 Meperidine Unknown - Patient st ates they do not know rxn details Low 06/05/2023 Venlafaxine Unknown - Patient st ates they do not know rxn details Low 06/05/2023 Gabapentin Unknown - Patient st ates they do not know rxn details Low 12/21/2021 Honey Anaphylaxis High 12/21/2021 Iodine Rash Low 12/21/2021 Latex Rash Low 12/21/2021 Etodolac Unknown - Patient st ates they do not know rxn details Low 06/05/2023 Meloxicam Unknown - Patient st ates they do not know rxn details Low 06/05/2023 Metformin Unknown - Patient st ates they do not know rxn details Low 06/05/2023 Oxytetracycline Unknown - Patient st ates they do not know rxn details Low 12/21/2021 Polymyxin B Unknown - Patient st ates they do not know rxn details Low 12/21/2021 Rice Unknown - Patient st ates they do not know rxn details Low 12/21/2021 Ceftriaxone Other - please docum ent in the comment field Low 06/05/2023 Milnacipran Unknown - Patient st ates they do not know rxn details Low 06/05/2023 Rofecoxib Unknown - Patient st ates they do not know rxn details Low 06/05/2023 Medications albuterol 108 (90 Base) MCG/ACT inhaler INHALE TWO PUFFS BY MOUTH TWICE DAILY FOR SHORTNESS OF BREATH OR wheezing use BEFORE flutter valve FOR sputum clearance 4 Active aspirin 325 MG EC tablet TAKE ONE TABLET BY MOUTH EVERY DAY FOR HEART HEALTH / BLOOD THINNER 4 Active atorvastatin (Lipitor) 80 MG tablet Take 1 tablet (80 mg) by mouth 1 (one) time each day. for cholesterol 4 Active donepezil (Aricept) 5 MG tablet Take 1 tablet (5 mg) by mouth every night. 3 Active fluticasone (Flonase) 50 MCG/ACT nasal spray INSTILL 2 SPRAYS IN EACH NOSTRIL EVERY DAY 3 Active escitalopram (Lexapro) 10 MG tablet Take 1 tablet (10 mg) by mouth 1 (one) time each day. 4 Active Linzess 290 MCG capsule TAKE ONE CAPSULE BY MOUTH EVERY DAY DIRECTED FOR irritable bowel 4 Active meclizine (Antivert) 25 MG tablet TAKE ONE TABLET BY MOUTH THREE TIMES DAILY NEEDED FOR VERTIGO 4 Active memantine (Namenda) 10 MG tablet TAKE ONE TABLET BY MOUTH TWICE DAILY FOR memory 4 Active montelukast (Singulair) 10 MG tablet Take 1 tablet (10 mg) by mouth 1 (one) time each day. 3 Active pregabalin (Lyrica) 50 MG capsule TAKE ONE CAPSULE BY MOUTH EVERY DAY NEEDED FOR NERVE PAIN MAY CAUSE DROWSINESS 4 Active cyanocobalamin (Vitamin B-12) 1000 MCG/ML injection 1 mL (1,000 mcg) every 30 (thirty) days. 4 Active diclofenac (Voltaren) 1 % topical gel Place 1-2 g on the skin if needed. 3 Active furosemide (Lasix) 20 MG tablet Take 1 tablet (20 mg) by mouth 1 (one) time each day. 4 Active Sucraid 8500 UNIT/ML solution 4 Active B-D 3CC LUER-KILO SYR 25GX1 25G X 1 3 ML misc USE with B12 injection ONCE A WEEK DIRECTED 4 Active azelastine (Astelin) 0.1 % nasal spray Administer 2 sprays into each nostril 2 (two) times a day. 4 Active cholecalciferol 50 MCG (2000 UT) capsule Take 1 capsule (2,000 Units) by mouth. 4 Active omeprazole (PriLOSEC) [address] capsule Take 1 capsule (40 mg) by mouth 1 (one) time each day. 3 Active Active Problems No known active problems Encounters Date Type Department Care Team Description 08/28/2024 Telephone [facility] [address] [place] [phone] None, None [facility] Same Day Appt/Overbook Request 08/27/2024 Community [facility] [address] [place] [address] James Stack MD Nuclear sclerotic cataract of both eyes (Primary Dx) from Last 3 Months Social History Tobacco Use Types Packs/Day Years Used Date Smoking Tobacco: Never Smokeless Tobacco: Never Tobacco Cessation:Counseling Given: Not Answered Alcohol Use Standard Drinks/Week Comments Not Currently 0 (1 standard drink = 0.6 oz pur e alcohol) Comments Unknown Sex and Gender Information Value Date Recorded Sex Assigned at Not on file Legal Sex Female 8:01 PM EDT Gender Identity Not on file Sexual Orientation Not on file Last Filed Vital Signs Vital Sign Reading Time Taken Comments Blood Pressure 132/86 07/27/2023 12:04 PM EDT Pulse 72 07/27/2023 12:04 PM EDT Temperature - - Respiratory Rate - - Oxygen Saturation 97% 07/27/2023 12:04 PM EDT Inhaled Oxygen Concentration - - Weight 98.9 kg (218 lb) 07/27/2023 12:04 PM EDT Height 172.7 cm (5' 8 ) 07/27/2023 12:04 PM EDT Body Mass Index 33.15 07/27/2023 12:04 PM EDT Plan of Treatment Health Maintenance Due Date Last Done Comments [facility]-Bone Density Scan 1945 [facility]-Depression Screening 1945 [facility]-Hepatitis C Screening 1945 [facility]-Medicare Annual Wellness (AWV) 1945 [facility]-/Child/Adol SDOH Screenings 1945 [facility]- SDOH Screenings 02/20/1964 [facility]-Adult SDOH Screenings 02/20/1964 [facility]-DTaP,Tdap,and Td Vaccines (1 - Tdap) 1965 [facility]-Pneumococcal Vaccine: 50+ Years (2 of 2 - PCV) 06/14/2019 06/13/2018 [facility]-RSV Vaccine: 60+ Years or (1 - 1-dose 75+ series) 2021 [id number]-14 Vaccine (5 - 2023- season) 2023 11/25/2021, 01/28/2021, 07/22/2020, Additional history exists [facility]-Influenza Vaccine (#1) 11/25/202412/06, 12/27/2019, 01/16/2019, Additional history exists [facility]-Zoster Vaccines Completed 06/26/2023, 0 [facility]-Obesity Intervention Completed 024, 06/05/2023, 06/05/2023 HPV Vaccines Aged Out No longer eligi ble based on patient's age to complete this topic [facility]-HIB Vaccines Aged Out No longer e ligible based on patient's age to complete this topic [facility]-Hepatitis A Vaccines Aged Out No longer eligible based on patient's age to complete this topic [facility]-IPV Vaccines Aged Out No longer e ligible based on patient's age to complete this topic [facility]-Rotavirus Vaccines Aged Out No lo nger eligible based on patient's age to complete this [place] [address] ANTHEM ANTHEM Care Teams Project Management Advisor Relationship Specialty Start Date End Date James Stack MD [address] [place] [address] PCP - General Internal Medicine 06/05/23
--- NOTE | 2024-10-25 10:55 | XR_ITS ---
FINAL REPORT CLINICAL HISTORY: chest pain SOB Dizziness COMPARISON: 03/23/2023 FINDINGS: PA and lateral views of the chest were obtained. The cardiac and mediastinal silhouettes are within normal limits. The lungs are clear. There is no pleural effusion or pneumothorax. No acute osseous abnormality is identified. IMPRESSION: No radiographic evidence of acute cardiac or pulmonary disease. Reviewed, Interpreted and Dictated by Ivis Ledesma MD Transcribed by Chelsea Gonzalez Authenticated and [facility]
--- NOTE | 2024-10-25 10:56 | HMH.EDGENADL ---
Discharge Plan Disposition Patient Disposition: Home, Self-Care Prescriptions Prescriptions: No Action atorvastatin 80 mg tablet 80 mg PO ONCE meclizine 25 mg tablet 25 mg PO DAILY furosemide 20 mg tablet 20 mg PO DAILY Patient Comments: TAKE ONE TABLET BY MOUTH EVERY DAY escitalopram oxalate 10 mg tablet 10 mg PO DAILY Patient Comments: TAKE ONE TABLET BY MOUTH EVERY DAY pregabalin 50 mg capsule 50 mg PO DAILY Patient Comments: TAKE ONE CAPSULE BY MOUTH EVERY DAY IN THE EVENING FOR NERVE PAIN MAY CAUSE DROWSINESS Linzess 290 mcg capsule 290 mcg PO DAILY Qty: 90 3RF omeprazole 20 mg capsule,delayed release(DR/EC) 20 mg PO DAILY Qty: 90 3RF hydrocortisone [Proctosol HC] 2.5 % cream with perineal applicator 1 applic AK QD-BID PRN (Reason: hemorrhoids) Qty: 30 0RF ammonium lactate 12 % cream 1 applic topical BID 30 Days Qty: 385 2RF ciclopirox 0.77 % cream 1 applic topical BID 180 Days Qty: 90 1RF nystatin 100,000 unit/gram cream 1 applic topical BID 14 Days Qty: 30 1RF nystatin 100,000 unit/gram powder 1 applic topical BID Qty: 30 2RF albuterol sulfate 90 mcg/actuation HFA aerosol inhaler 2 inh inhalation BID 90 Days Qty: 8.5 3RF Rx Instructions: To be used before flutter valve for sputum clearance donepezil 10 mg tablet 10 mg PO Patient Comments: TAKE ONE TABLET BY MOUTH AT BEDTIME azelastine 137 mcg (0.1 %) spray,non-aerosol See Rx Instructions .ROUTE .COMPLEX Qty: 30 2RF Dose Instruction: INSTILL 2 SPRAYS IN EACH NOSTRIL EVERY DAY AT BEDTIME Rx Instructions: INSTILL 2 SPRAYS IN EACH NOSTRIL EVERY DAY AT BEDTIME montelukast 10 mg tablet 10 mg PO QPM 90 Days Qty: 90 2RF fluticasone propionate 50 mcg/actuation spray,suspension See Rx Instructions .ROUTE .COMPLEX Qty: 16 2RF Dose Instruction: INSTILL 2 SPRAYS IN EACH NOSTRIL EVERY DAY Rx Instructions: INSTILL 2 SPRAYS IN EACH NOSTRIL EVERY DAY memantine 10 MG tablet 10 mg PO BID acetaminophen 500 MG tablet 500 mg PO QID PRN (Reason: PAIN) cholecalciferol (vitamin D3) 50 mcg (2,000 unit) capsule 50 mcg PO DAILY Patient Comments: TAKE ONE CAPSULE BY MOUTH EVERY DAY aspirin 325 mg tablet,delayed release (DR/EC) 325 mg PO DAILY Patient Comments: TAKE ONE TABLET BY MOUTH EVERY DAY polyethylene glycol 3350 [Miralax] 17 gram/dose Powder 17 g PO DAILYP PRN (Reason: Constipation) psyllium mcbm-[id number]-[id number] 3 gram/6 gram Powder 1 ea PO DAILYP PRN (Reason: Constipation) lidocaine HCl [Aspercreme (lidocaine HCl)] 4 % cream 1 applic topical BID MDD 4 Qty: 120 0RF Rx Instructions: Apply a thin topical layer only on the external hemorrhoid every 6 hours as needed for hemorrhoid pain. Referrals Follow up/Referrals: James Stack MD [Primary Care Provider, Internal Medicine] - See instructions Activity Restrictions/Add. Instructions Additional Instructions/Restrictions: Follow-up with your primary care physician. If you develop any new or worsening symptoms, or if you become concerned for your health for any reason, return to the emergency department for evaluation Clinical Impressions Clinical Impression: Left-sided chest pain Print Language Print Language: Swiss Discharge ED Provider: Alexsander Velez General Adult HPI General Chief complaint: Chest Pain Stated complaint: Chest Pain Time Seen by Provider: 10/25/24 10:46 Mode of Arrival: Ambulatory Source of Information: Patient Description of Symptoms (Recalled from ER Triage Doc. 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 Reports having multiple headaches this week, states she does have a hx of frequest headaches. Denies SOA. States chest pain resolved ship captain. History of Present Illness HPI narrative: Charley Massey is a 79F with a past medical history of vertigo, M?ni?re's disease who presents to the emergency department for complaints of chest pain. Patient states that she was standing in line at the bank when she had sudden onset sharp pain on the left side of her chest. She states that she has had these pains before but this was more severe. She states that the pain has resolved at this time. She reports some shortness of breath but denies any cough, fever, new abdominal pain. She reports that she has blockages in her neck and some soreness on the sides of her neck that is chronic without worsening recently. She does report a headache at this time. Related Data Home Medications ?Medication ?Instructions ?Recorded ?Confirmed atorvastatin 80 mg tablet 80 mg PO ONCE Cholesterol 05/30/17 08/15/24 memantine 10 mg tablet 10 mg PO BID MEMORY 02/02/19 08/15/24 acetaminophen 500 mg tablet 500 mg PO QID PRN PAIN 07/09/20 08/15/24 aspirin 325 mg tablet,delayed 325 mg PO DAILY 05/16/23 08/15/24 release cholecalciferol (vitamin D3) 50 50 mcg PO DAILY 05/16/23 08/15/24 mcg (2,000 unit) capsule polyethylene glycol 3350 17 17 g PO DAILYP PRN Constipation 05/17/23 08/15/24 gram/dose oral powder (Miralax) psyllium hgag-opmlfy-xxedzslri 3 1 ea PO DAILYP PRN Constipation 05/17/23 08/15/24 gram/6 gram oral powder escitalopram oxalate 10 mg tablet 10 mg PO DAILY 01/25/24 08/15/24 furosemide 20 mg tablet 20 mg PO DAILY 01/25/24 08/15/24 meclizine 25 mg tablet 25 mg PO DAILY 01/25/24 08/15/24 pregabalin 50 mg capsule 50 mg PO DAILY 01/25/24 08/15/24 donepezil 10 mg tablet 10 mg PO 07/22/24 08/15/24 Previous Rx's ?Medication ?Instructions ?Recorded albuterol sulfate 90 mcg/actuation 2 inh inhalation BID shortness of 06/22/23 aerosol inhaler breath or wheezing 90 days #8.5 grams linaclotide 290 mcg capsule 290 mcg PO DAILY #90 caps 01/25/24 (Linzess) omeprazole 20 mg capsule,delayed 20 mg PO DAILY #90 caps 01/25/24 release lidocaine HCl 4 % topical cream 1 applic topical BID Hemorrhoids 02/23/24 (Aspercreme (lidocaine HCl)) #120 grams hydrocortisone 2.5 % topical cream 1 applic AK QD-BID PRN hemorrhoids 02/29/24 with perineal applicator #30 grams (Proctosol HC) azelastine 137 mcg (0.1 %) nasal See Rx Instructions .Route 03/12/24 spray .COMPLEX #30 mL montelukast 10 mg tablet 10 mg PO QPM 90 days #90 tabs 07/04/24 fluticasone propionate 50 See Rx Instructions .Route 08/05/24 mcg/actuation nasal .COMPLEX #16 grams spray,suspension ammonium lactate 12 % topical cream 1 applic topical BID dry skin, 08/15/24 callus care 30 days #385 grams ciclopirox 0.77 % topical cream 1 applic topical BID fungal nails 08/15/24 6 months #90 grams nystatin 100,000 unit/gram topical 1 applic topical BID 14 days #30 08/15/24 cream grams nystatin 100,000 unit/gram topical 1 applic topical BID #30 grams 08/15/24 powder Allergies Allergy/AdvReac Type Severity Reaction Status Date / Time honey Allergy Severe Anaphylaxis Verified 10/25/24 11:05 adhesive (ADHESIVE) Allergy Unknown Rash Verified 10/25/24 11:05 ceftriaxone (From ROCEPHIN) Allergy Unknown Rash Verified 10/25/24 11:05 ciprofloxacin (From CIPRO) Allergy Unknown Rash Verified 10/25/24 11:05 codeine (CODEINE) Allergy Unknown Rash Verified 10/25/24 11:05 gabapentin (GABAPENTIN) Allergy Unknown Rash Verified 10/25/24 11:05 iodine (IODINE) Allergy Unknown Rash Verified 10/25/24 11:05 latex (LATEX) Allergy Unknown Rash Verified 10/25/24 11:05 meloxicam (MELOXICAM) Allergy Unknown Rash Verified 10/25/24 11:05 meperidine (MEPERIDINE) Allergy Unknown Rash Verified 10/25/24 11:05 oxytetracycline Allergy Unknown Rash Verified 10/25/24 11:05 (OXYTETRACYCLINE) polymyxin B (POLYMYXIN B) Allergy Unknown Rash Verified 10/25/24 11:05 rice (RICE) Allergy Unknown Redness of Verified 10/25/24 11:05 Skin soy (SOY) Allergy Unknown Rash Verified 10/25/24 11:05 venlafaxine (VENLAFAXINE) Allergy Unknown Rash Verified 10/25/24 11:05 Iodinated Contrast Media Allergy Rash Verified 10/25/24 11:05 BEEF Allergy Unknown ITCHING Uncoded 07/22/24 11:08 FISH. Allergy Unknown UNK RXN-ON Uncoded 07/22/24 11:08 ALLERGY TESTING ONLY From EGGS (FOOD/DRUG) Allergy Unknown DIARRHEA/NA Uncoded 07/22/24 11:08 USEA/VOMITI NG From MILK (FOOD/DRUG) Allergy Unknown DIARRHEA Uncoded 07/22/24 11:08 POTATOES Allergy Unknown BLOATING Uncoded 07/22/24 11:08 SEVELLA Allergy Unknown OUT OF IT Uncoded 07/22/24 11:08 VIOXX Allergy Unknown RASH/ITCHIN Uncoded 07/22/24 11:08 G WHEAT Allergy Unknown ITCHING IN Uncoded 07/22/24 11:08 MOUTH/NAUSEA PFSH PFSH Disclaimer: The information contained in this section may have been updated after the patient was seen, as this information can be updated by other users. Medical History Abnormality of lung on CXR Fatigue Cough productive of purulent sputum Body aches Fever Hearing loss of both ears Post-nasal drip Meniere's disease Sinus drainage Dyspnea on exertion Recurrent pneumonia Chronic cough HTN (hypertension), benign HLD (hyperlipidemia) GERD (gastroesophageal reflux disease) T2DM (type 2 diabetes mellitus) COPD (chronic obstructive pulmonary disease) CHF (congestive heart failure) Atrial fibrillation Asthma Arrhythmia Diabetes mellitus Surgical History History of cholecystectomy H/O breast biopsy H/O lumpectomy Hx of tonsillectomy Status post bronchoscopy with biopsy Family History Other Cancer Coronary artery disease Diabetes Heart attack Hyperlipidemia Hypertension Kidney disease Tuberculosis Social History Smoking Status: Never smoker alcohol intake: never substance use type: denies use current occupational status: retired and disabled Travel in the last 8 weeks?: None housing: assisted living facility current occupational exposures/hazards: No caffeine: Yes Have you lived/traveled outside US in past 30 days?: No Contact w/someone who lives/traveled outside US past 30 days?: No Exposure to someone with infectious disease in past 14 days?: No Do you have a fever (greater than 100.4 F or 38 C)?: No Have you tested positive for COVID-19?: No Exposed to someone with COVID-19 in past 14 days?: No Do you have a sore throat?: No Do you have a cough?: No Do you have any weakness?: No Do you have any diarrhea?: No Are you experiencing any unusual bleeding?: No Do you have any muscle aches/pain?: No Do you have any abdominal pain?: No Are you experiencing loss of taste or smell?: No Other Medical History Have you received the Flu Vaccine for this season: No Have you received the Pneumonia Vaccine: Yes ROS Obtained: Yes Systems reviewed as appropriate & no additional complaints except as documented Physical Exam General General appearance: alert and in no apparent distress Head Head exam: atraumatic Eye Eye exam: Present normal appearance ENT ENT exam: Present normal external ear exam Neck Neck exam: Present full ROM Chest Chest inspection: Present symmetric chest wall rise Respiratory Respiratory exam: Present normal lung sounds bilaterally; Absent respiratory distress, wheezes or stridor Cardiovascular Cardiovascular exam: Present regular rate and normal rhythm Abdominal Exam Abdominal exam: Present soft; Absent distention, tenderness or guarding Extremities Exam Extremities exam: Present normal inspection Back Exam Back exam: Present normal inspection Neurological Exam Neurological exam: Present alert and oriented X3 Psychiatric Psychiatric exam: Present normal affect Skin Skin exam: Present warm and dry Medical Decision Making Medical Records Screening: Per USPSTF and CDC recommendations, given the prevalence of disease in our region, it is our hospital?s policy to screen for HIV and viral Hepatitis for all patients aged 18 and over and those with ongoing risk factors. Nayan Inquiry Pt receiving controlled substance: No Vital Signs: 10/25/24 10:43 10/25/24 11:12 10/25/24 11:30 Temperature 97.5 F L 97.5 F L Temperature Source Oral Oral Pulse Rate 54 L 57 L Pulse Rate [Left] 65 Respiratory Rate 19 17 15 Blood Pressure 137/64 142/75 H Blood Pressure [Right Arm] 149/71 H Blood Pressure Mean 86 Blood Pressure Mean [Right Arm] 97 Blood Pressure Source [Right Arm] Automatic Cuff Blood Pressure Position [Right Arm] Sitting 02 Sat by Pulse Oximetry 97 98 97 Oxygen Delivery Method Room Air Room Air 10/25/24 12:00 10/25/24 12:30 10/25/24 12:45 Temperature Temperature Source Pulse Rate 55 L 61 Pulse Rate [Left] Respiratory Rate 15 18 Blood Pressure 133/63 128/59 L Blood Pressure [Right Arm] Blood Pressure Mean 74 Blood Pressure Mean [Right Arm] Blood Pressure Source [Right Arm] Blood Pressure Position [Right Arm] 02 Sat by Pulse Oximetry 94 L 96 Oxygen Delivery Method 10/25/24 13:00 10/25/24 13:30 10/25/24 15:18 Temperature 97.5 F L Temperature Source Pulse Rate 53 L 57 L Pulse Rate [Left] Respiratory Rate 16 16 Blood Pressure 129/64 132/62 129/57 L Blood Pressure [Right Arm] Blood Pressure Mean 75 Blood Pressure Mean [Right Arm] Blood Pressure Source [Right Arm] Blood Pressure Position [Right Arm] 02 Sat by Pulse Oximetry 97 Oxygen Delivery Method Lab Data Lab Results 10/25/24 10:57: WBC 5.3, RBC 4.60, Hgb 12.9, Hct 40.1, MCV 87.2, MCH 28.0, MCHC 32.2, RDW 13.8, Plt Count 226, MPV 11.1 H, Neut % (Auto) 57.7, Lymph % (Auto) 23.7, [place] % (Auto) 12.6 H, Eos % (Auto) 4.1, Baso % (Auto) 1.5, Neut # (Auto) 3.1, Lymph # (Auto) 1.3, [place] # (Auto) 0.7, Eos # (Auto) 0.2, Baso # (Auto) 0.1, Sodium 143, Potassium 3.3 L, Chloride 108 H, Carbon Dioxide 32 H, Anion Gap 6.3, BUN 11, Creatinine 0.60, Estimated Creat Clear 74, Estimated GFR 97, Est GFR ( Amer) 117, Glucose 134 H, Calcium 9.4, Total Bilirubin 0.8, AST 25, ALT 14, Alkaline Phosphatase 99, Troponin I < 0.01, NT-Pro-B Natriuret Pep 161, Total Protein 6.3, Albumin 3.7, Globulin 2.6, Albumin/Globulin Ratio 1.4 10/25/24 13:35: Troponin I < 0.01 10/25/24 10:57 10/25/24 10:57 Orders (Tests/Meds): ED MEDICATIONS Discontinued Medications Generic Name Dose Route Start Last Admin Trade Name Freq PRN Reason Stop Dose Admin Acetaminophen 1,000 mg 10/25/24 10:55 10/25/24 11:01 Acetaminophen 500mg Tab PO 10/25/24 10:56 1,000 mg ONCE ONE Administration ORDERS Category Date Time Status CXR 2 view (NOT portable) [XR chest 2V] Stat Exams 10/25/24 10:55 Completed BNP [NT Pro Brain Natriuretic Pep.] Stat Lab 10/25/24 10:57 Completed CBC w/Auto Diff [Complete Blood Count Auto Diff] Stat Lab 10/25/24 10:57 Completed CMP [Comprehensive Metabolic Panel] Stat Lab 10/25/24 10:57 Completed Troponin I Q3H Lab 10/25/24 13:35 Completed Troponin I Stat Lab 10/25/24 10:57 Completed ECG Data Tracing #1: I reviewed this ECG and interpreted as documented below: Normal sinus rhythm. Isolated T wave inversion in aVL and aVR with upright T waves, likely from lead reversal. No ST elevation or depression. QTc normal at 442 HEART Score History (anamnesis): Slightly suspicious ECG: Normal Age: >65 years Risk factors: No known risk factors Troponin: </= normal limit HEART Score: 2 Medical Decision Narrative: Charley Massey is a 79F with a past medical history of vertigo, M?ni?re's disease who presents to the emergency department for complaints of chest pain. Patient states that she was standing in line at the bank when she had sudden onset sharp pain on the left side of her chest. She states that she has had these pains before but this was more severe. She states that the pain has resolved at this time. She reports some shortness of breath but denies any cough, fever, new abdominal pain. She reports that she has blockages in her neck and some soreness on the sides of her neck that is chronic without worsening recently. She does report a headache at this time. On arrival, patient is mildly hypertensive with blood pressure of 149/71, heart rate within normal limits, afebrile, breathing completed room air with saturation 97% SpO2. Physical exam, as stated above, revealed an overall well-appearing female in no distress. She has no chest pain at this time. Cardiopulmonary exam is unremarkable. Abdomen soft, nontender nondistended. She does report history of chronic neck pain and headache but states that these are known issues as she was told that she has partial blockages in the vessels in her neck. Differential diagnosis includes, but is not limited to: ACS, pericarditis, myocarditis, pneumothorax, pneumonia, pleural effusion, pleurisy, costochondritis, among others. There is low concern for pulmonary embolism at this time as she has not had a cough and is not hypoxic and has no risk factors for blood clots. Workup in the emergency department included: 2 view chest x-ray, EKG, CBC, CMP, troponin, BNP EKG, stated above, revealed no evidence of ischemia. See interpretation above Chest x-ray interpreted by me personally. No focal consolidation, no pneumothorax, no widening of the mediastinum. No cardiac silhouette enlargement. See radiology report for final details Laboratory studies were unremarkable with troponins negative x 2. BNP within normal limits. Mild hypokalemia of 3.3 but otherwise nonactionable. No leukocytosis, no anemia. Patient's heart score is low at 2. She has remained asymptomatic throughout her entire ED visit with stable vital signs. Given this, is felt that she is appropriate for discharge at this time. She was given return precautions. All questions were answered. She demonstrated understanding and was in agreement this plan. She was then discharged from the emergency department in stable condition. Critical Care Critical Care Time Critical Care Time: No
[2024-10-25] MEDS: ACETAMINOPHEN 500MG TAB 1000 MG PO (11:01)
[2024-10-25 11:02] LABS: Hematocrit 40.1 % (37.0-47.0); Hemoglobin 12.9 g/dL (12.2-16.2); Immature Granulocytes % 0.4 %; Mean Corpuscular HGB Conc 32.2 g/dL (31.8-35.4); Mean Corpuscular Hemoglobin 28.0 pg (27.0-31.2); Mean Corpuscular Volume 87.2 fl (81-99); Nucleated Red Blood Cells % 0 %; Platelet Count 226 K/mm3 (142-424); Red Blood Count 4.60 M/mm3 (4.20-5.40); Red Cell Distribution Width-SD 43.8 fL; White Blood Count 5.3 K/mm3 (4.8-10.8)
[2024-10-25 11:16] LABS: Alanine Aminotransferase 14 U/L (12-78); Albumin Level 3.7 g/dl (3.5-5.0); Albumin/Globulin Ratio 1.4 (1.1-1.8); Alkaline Phosphatase 99 U/L (38-126); Anion Gap 6.3 mEq/L (5-15); Aspartate Amino Transferase 25 U/L (14-36); Bilirubin,Total 0.8 mg/dl (0.2-1.3); Blood Urea Nitrogen 11 mg/dl (7-17); Calcium 9.4 mg/dl (8.4-10.2); Carbon Dioxide 32 mmol/L (22.0-30.0); Chloride 108 mmol/L (98-107); Creatinine Clearance Estimated 74 mL/min (50-200); Creatinine,Serum 0.60 mg/dl (0.52-1.04); Estimated Glomerular Filt Rate 97 ml/min (>60); GFR (African American) 117 ML/MIN (>60); Globulin 2.6 g/dL (1.3-3.2); Glucose 134 mg/dl (74-100); Potassium 3.3 mmoL/L (3.5-5.1); Sodium 143 mmol/L (136-145); Total Protein,Serum 6.3 g/dl (6.3-8.2)
[2024-10-25 11:27] LABS: NT Pro Brain Natriuretic Pep. 161 pg/mL (0-450)
[2024-10-25 11:43] LABS: Troponin I < 0.01 ng/ml (0.00-0.034)
[2024-10-25 14:09] LABS: Troponin I < 0.01 ng/ml (0.00-0.034)
--- NOTE | 2024-10-25 14:41 | PC.NURSE ---
Dr Velez @ bedside
== END 2024-10-25 15:22 | disposition home or self-care (01) ==
PROVIDERS: Emergency Provider Student in an Organized Health Care Education/Training Program; PCP Internal Medicine Adolescent Medicine
DX: R07.89 Other chest pain (principal); R06.02 Shortness of breath; I10 Essential (primary) hypertension; E78.5 Hyperlipidemia, unspecified; Z86.79 Personal history of other diseases of the circulatory system
CPT/HCPCS: 71046; 80053; 83880; 84484; 85025; 93005; 99284

== ENCOUNTER 2024-12-19 13:01 | Outpatient (CLI) | payer MEDICARE, BC, SELFPAY ==
--- NOTE | 2024-12-19 | CA_ITS ---
FINAL REPORT TECHNIQUE: Clayton scale, color and spectral doppler images of the bilateral carotid arteries were obtained. CLINICAL HISTORY: HLD, DM, headaches/migraines, vertigo. COMPARISON: None FINDINGS: Peak systolic velocity in the right internal carotid artery is 95 cm/sec. The internal carotid to common carotid artery ratio is 1.2. There is no significant carotid artery stenosis and no significant plaque formation. The right vertebral artery is normal in direction. Peak systolic velocity in the left internal carotid artery is 100 cm/sec. The internal carotid to common carotid artery ratio is 1.13. There is no significant carotid artery stenosis and no significant plaque formation. The left vertebral artery is normal in direction. IMPRESSION: No ultrasound evidence of hemodynamically significant carotid artery stenosis. Normal peak systolic velocities and normal internal to common carotid artery ratios bilaterally. Reviewed, Interpreted and Dictated by Ivis Ledesma MD Transcribed by Devorah Dang Authenticated and [facility]
--- OUTSIDE RECORDS SUMMARY | 2024-12-19 13:09 | XMS_ITS | Clinical Summary ---
Author Organization [facility] Address [address] [place] [address] Care Team Providers Care Resaw Tailer Name Role Phone James Stack MD Primary Care Provider [phone] Allergies Active Allergy Reactions Criticality Noted Date [...] (1 - 1- dose 75+ series) 2021 ANNUAL WELLNESS VISIT 04/08/2024 HEPATITIS C SCREENING 04/08/2024 INFLUENZA VACCINE 10/25/2024 12/06/2021, , 01/16/2019, Additional history exists COVID-19 Vaccine ( - 2024-2 6 season) 2024 11/25/2021, 01/28/2021, 07/22/2020, Additional history exists ZOSTER VACCINE Completed 06/26/2023, 03/26/2020 Insurance MEDICARE A & B [facility] Care Teams Resaw Tailer Relationship Specialty Start Date End Date James Stack MD [address] [facility] [address] [facility] [address] [facility] [id number] PCP - General Adolescent Medicine 04/08/24
--- OUTSIDE RECORDS SUMMARY | 2024-12-19 13:09 | XMS_ITS | Encounter Summary ---
Author Organization Healthcare Address [address] [place] [address] Care Team Providers Care Web Development Consultant Name Role Phone James Stack MD Primary Care Provider Reason for Referral * Consultation (Routine) - Authorized Specialty Diagnoses / Procedures Referred By Terrell buckley Referred To Contact Ophthalmology Diagnoses Nuclear sclerotic cataract of both eyes James Stack MD [address] [place] [address] Phone: tel: fax: [facility] [address] [place] [address] Phone: tel: fax: Referral ID Status Reason Start Date Expiration Date Visits Requested Visits Authorized [id number] Authorized Specialty Services Required 08/27/2024 02/26/2026 1 1 Encounter Details Date Type Department Care Team (Late st Contact Info) Description 08/27/2024 Community [facility] [address] [place] [address] James Stack MD [address] [place] [address] Nuclear sclerotic cataract of both [...] documented as of this encounter Care Teams Web Development Consultant Relationship Specialty Start Date End Date James Stack MD [address] [place] [id number] PCP - General Internal Medicine 06/05/23 documented as of this encounter
--- OUTSIDE RECORDS SUMMARY | 2024-12-19 13:09 | XMS_ITS | Clinical Summary ---
Author Organization [facility] Address [address] [place] [address] Care Team Providers Care Power House Control Room Operator Name Role Phone James Stack MD Primary Care Provider [phone] Allergies Active Allergy Reactions Criticality Noted Date [...] Active Active Problems No known active problems Social History Tobacco Use Types Packs/Day Years [...] Screening 1945 [facility]-Medicare Annual Wellness (AWV) 1945 [facility]-Infant/Child/Adol SDOH Screenings 1945 [facility]- SDOH Screenings 02/20/1964 [facility]-Adult SDOH Screenings 02/20/1964 [facility]-DTaP,Tdap,and Td Vaccines (1 - Tdap) 1965 [facility]-Pneumococcal Vaccine: 50+ Years (2 of 2 - PCV) 06/14/2019 06/13/2018 [facility]-RSV Vaccine: 60+ Years or (1 - 1-dose 75+ series) 2021 [id number] Vaccine (5 - season) 2024 11/25/2021, 01/28/2021, 07/22/2020, Additional history exists [facility]-Influenza Vaccine (#1) 11/25/202412/06, 12/27/2019, 01/16/2019, Additional history exists [facility]-Zoster Vaccines Completed 06/26/2023, [facility]-Obesity Intervention Completed 024, 06/05/2023, 06/05/2023 HPV [...] age to complete this topic Insurance MEDICARE [facility] Member Subscriber Plan / Payer (Ef fective 2016-Present) Name:Charley Massey Relation to Subscriber:Self Name:Charley Massey Payer ID:[id number] (NAIC) Group ID:[id number] Type:Not on file Address: [address] [place] [id number] ANTHEM Care Teams Power House Control Room Operator Relationship Specialty Start Date End Date James Stack MD [address] [place] [id number] PCP - General Internal Medicine 06/05/23
== END 2024-12-19 23:59 | disposition home or self-care (01) ==
LOC: RT 13:03
PROVIDERS: PCP Internal Medicine Adolescent Medicine; Visit Provider Nurse Practitioner Family
DX: I65.23 Occlusion and stenosis of bilateral carotid arteries (principal); E11.59 Type 2 diabetes mellitus with other circulatory complications; E78.5 Hyperlipidemia, unspecified; R51.9 Headache, unspecified; R42 Dizziness and giddiness
CPT/HCPCS: 93880